=== PATIENT | female | born 1955 | race Caucasian/White ===

== ENCOUNTER 2016-08-14 09:22 | Outpatient (CLI) | payer MEDICAID ==
[2016-08-14] MEDS ORDERED: Acetaminophen 325 MG Tab PO PRN (11:41)
[2016-08-14 13:24] VITALS: BP 114/70
--- NOTE | 2016-08-14 13:57 | CT ---
EXAMINATION: CT guided right middle lobe lung biopsy HISTORY: Lung mass COMPARISON: 08/01/2016 TECHNIQUE: The procedure, risks, and benefits were discussed with the patient. Risks included life-t hreatening bleeding, infection, pneumothorax, delayed pneumothorax and pain. Written Informed consen t was obtained. The patient was placed and oblique supine position. Chronic Disease Epidemiologist imaging was obtained. An a dequate location was selected along the right lateral chest. The overlying area was sterilely preppe d and draped. 1% lidocaine was administered for local anesthesia. Using CT guidance a 16-gauge troca r after was advanced to the periphery of the tumor. Total of 2 18-gauge core biopsies were obtained. A blood patch was placed as the trocar was withdrawn. The patient tolerated the procedure well. The re is no evidence of bleeding or immediate pneumothorax. Upright chest radiograph was taken 15 minutes following the procedure demonstrated no appreciable pl eural effusion. The patient was monitored for approximately 2 hours and vitals remained stable. Ther e is no notable patent. A chest radiograph was taken 2 hours post procedure also demonstrated no mulu reciable pneumothorax. No evidence of bleeding. The patient was given instructions and told if any s hortness of breath or trouble breathing was experienced to call the radiology Department are present ed to the ER. IMPRESSION: Successful CT guided biopsy of a right lung mass.
== END 2016-08-14 12:45 | disposition home or self-care (01) ==
LOC: MW.DI 09:22
PROVIDERS: ATTEND Family Medicine
DX: R91.8 Other nonspecific abnormal finding of lung field (principal); R93.8 Abnormal findings on diagnostic imaging of other specified body structures
CPT/HCPCS: 32405; 71010; 77012; 88305; A9270

== ENCOUNTER → 2016-08-29 | Outpatient (CLI) | payer MEDICAID ==
[2016-08-29] MEDS: Gadobutrol 10 mMOL/10 ML SDV IVPUSH STA (12:25)
== END ==
LOC: MW.MRI 11:46
PROVIDERS: ATTEND Family Medicine
DX: C34.91 Malignant neoplasm of unspecified part of right bronchus or lung (principal)
CPT/HCPCS: A9585

== ENCOUNTER → 2016-09-02 | Outpatient (CLI) | payer MEDICAID ==
--- NOTE | 2016-09-04 09:35 | NM ---
EXAMINATION: PET CT scan from skullbase to proximal thighs. HISTORY: Malignant neoplasm. PROCEDURE: Patient's fasting blood glucose was 117 mg/dL. 11.12 mCi of FDG was administered. Scanni ng was performed one hour following injection. Comparison CT dated 08/01/2016. FINDINGS: NECK/CHEST: There is no abnormal uptake along the cervical chains. No abnormal mediastinal or hilar uptake. Again noted is a right lung mass measuring approximately 3.2 cm demonstrating avid FDG uptak e with a maximum SUV of 18.1. There is scarring within the left lingular region without significant FDG uptake. ABDOMEN/PELVIS: No FDG avid retroperitoneal, mesenteric or pelvic adenopathy. The rest of the activity within the a bdomen and pelvis including kidneys is within physiologic limits. No rectal or sigmoid focal intense uptake. OSSEOUS STRUCTURES: No abnormal osseous uptake identified.. IMPRESSION: 1. Solitary right middle lobe mass measuring approximately 3.3 cm demonstrating avid FDG uptake. 2. Otherwise no evidence of metastatic disease.
== END | disposition home or self-care (01) ==
LOC: MW.NM 10:02
PROVIDERS: ATTEND Family Medicine
DX: C34.91 Malignant neoplasm of unspecified part of right bronchus or lung (principal); R91.8 Other nonspecific abnormal finding of lung field
CPT/HCPCS: 78815; A9552

== ENCOUNTER 2018-08-13 23:42 | Emergency (ER) | payer MEDICAID ==
--- NOTE | 2018-08-13 23:56 | EDM.PDOC ---
ED HPI GENERAL MEDICAL PROBLEM - General Chief Complaint: Lower Extremity Injury/Pain Stated Complaint: KNEE PAIN Time Seen by Provider: 08/13/18 23:49 - History of Present Illness INITIAL COMMENTS - FREE TEXT/NARRATIVE: HISTORY AND PHYSICAL: History of present illness: Patient is 63-year-old white female history of cancer who presents with concern of right knee injury this occurred when she got up and fell she denies chest pain shortness breath dizziness or any other complaints she denies any head or neck pain or trauma or other concern. Review of systems: As per history of present illness and below otherwise all systems reviewed and negative. Past medical history: As per history of present illness and as reviewed below otherwise noncontributory. Surgical history: As per history of present illness and as reviewed below otherwise noncontributory. Social history: No reported history of drug or alcohol abuse. Family history: As per history of present illness and as reviewed below otherwise noncontributory. Physical exam: HEENT: Atraumatic, normocephalic, pupils reactive, negative scleral icterus, mucous membranes moist, throat clear, neck supple, nontender, trachea midline. Lungs: Clear to auscultation, breath sounds equal bilaterally, chest nontender. Heart: S1S2, regular, negative for clicks, rubs, or JVD. Abdomen: Soft, nondistended, nontender. Negative for masses or hepatosplenomegaly. Negative for costovertebral tenderness. Pelvis: Stable nontender. Genitourinary: Deferred. Rectal: Deferred. Extremities: Small swelling noted right knee joints grossly stable, negative for cords or calf pain. Neurovascular unremarkable. Neuro: Awake, alert, oriented. Cranial nerves II through XII unremarkable. Cerebellum unremarkable. Motor and sensory unremarkable throughout. Exam nonfocal. Diagnostics: X-ray right knee patient defers all other diagnostics Therapeutics: None Impression: #1 acute right knee injury #2 history of fall Definitive disposition and diagnosis as appropriate pending reevaluation and review of above. right knee Pain Score (Numeric/FACES): 7 - Related Data Allergies Allergy/AdvReac Type Severity Reaction Status Date / Time naproxen [From Aleve] Allergy Difficulty Verified 08/14/18 00:06 Breathing Penicillins Allergy Other Verified 08/14/18 00:06 Home Meds: Home Meds Albuterol Sulfate [Proair Respiclick] 2 puff INH ASDIRECTED PRN 10/23/18 [ History] Fluticasone/Salmeterol [Advair Hfa 230-21 Mcg Inhaler] 1 puff INH BID PRN [History] LORazepam 1 mg PO TID PRN 04/07/18 [History] Morphine Sulfate [Morphine Sulfate ER] 15 mg PO BID 04/07/18 [History] Ondansetron [Zofran] 8 mg PO TID PRN 04/07/18 [History] Pregabalin [Lyrica] 100 mg PO BID 04/07/18 [History] oxyCODONE 5 mg PO Q4H PRN 04/07/18 [History] Past Medical History HEENT History: Reports: Other (See Below) Other HEENT History: uses corrective glasses Respiratory History: Reports: COPD 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: Neurological History: Reports: Other (See Below) 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 ED EXAM, GENERAL - Physical Exam Exam: See Below (See dictation) Course - Vital Signs Last Recorded V/S: Last Vital Signs Temp 36.6 C 08/13/18 23:43 Pulse 78 08/13/18 23:43 Resp 18 08/13/18 23:43 BP 91/50 L 08/13/18 23:43 Pulse Ox 90 L 08/13/18 23:43 Departure - Departure Time of Disposition: 01:03 Disposition: Home, Self-Care 01 Condition: Good Clinical Impression: Knee injury - Discharge Information Forms: ED Department Discharge Additional Instructions: The following information is given to patients seen in the emergency department who are being discharged to home. This information is to outline your options for follow-up care. We provide all patients seen in our emergency department with a follow-up referral. The need for follow-up, as well as the timing and circumstances, are variable depending upon the specifics of your emergency department visit. If you don't have a primary care physician on staff, we will provide you with a referral. We always advise you to contact your personal physician following an emergency department visit to inform them of the circumstance of the visit and for follow-up with them and/or the need for any referrals to a consulting specialist. The emergency department will also refer you to a specialist when appropriate. This referral assures that you have the opportunity for followup care with a specialist. All of these measure are taken in an effort to provide you with optimal care, which includes your followup. Under all circumstances we always encourage you to contact your private physician who remains a resource for coordinating your care. When calling for followup care, please make the office aware that this follow-up is from your recent emergency room visit. If for any reason you are refused follow-up, please contact the [facility] emergency department at and asked to speak to the emergency department charge nurse. Specialty Care - [facility] [address], [facility] [address] [place] [address] Continue current medications follow-up primary medical doctor as needed as discussed follow-up orthopedic surgery as needed as discussed and return as needed as discussed
--- NOTE | 2018-08-14 00:33 | CR ---
INDICATION: Fell and landed on right knee. COMPARISON: None. FINDINGS/IMPRESSION: Right knee, 3 views. No acute fracture is identified. There is no malalignment. Moderate-sized joint effusion is present within the suprapatellar bursa. Scattered minimal marginal joint spurring is present and there is chondrocalcinosis of the knee. Dictated by Medardo Burton MD @ 08/14/2018 12:32:07 AM Dictated by: Medardo Burton MD @ 08/14/2018 00:33:09 (Electronically Signed)
[2018-08-14 01:13] VITALS: BP 111/68
== END 2018-08-14 01:13 | disposition home or self-care (01) ==
LOC: MW.ED 23:42
DX: S89.91XA Unspecified injury of right lower leg, initial encounter (principal); J44.9 Chronic obstructive pulmonary disease, unspecified; Z79.899 Other long term (current) drug therapy; Z88.0 Allergy status to penicillin; Z88.5 Allergy status to narcotic agent; W18.39XA Other fall on same level, initial encounter
CPT/HCPCS: 73562-26-RT; 73562-RT; 99284; 99284-25

== ENCOUNTER 2020-05-18 11:15 | Emergency (ER) | payer MEDICAID ==
[2020-05-18] MEDS ORDERED: Sodium Chloride 0.9% 10 ML Syringe FLUSH PRN (11:24)
[2020-05-18] MEDS ORDERED: Sodium Chloride 0.9% 2.5 ML Syringe FLUSH PRN (11:24)
[2020-05-18] MEDS ORDERED: Sodium Chloride 0.9% 10 ML SDV IV PRN (11:24)
--- NOTE | 2020-05-18 11:33 | EDM.PDOC ---
ED HPI GENERAL MEDICAL PROBLEM - General Stated Complaint: POSSIBLE STROKE Time Seen by Provider: 05/18/20 11:19 Source of Information: Reports: Patient History Limitations: Reports: No Limitations - History of Present Illness INITIAL COMMENTS - FREE TEXT/NARRATIVE: HISTORY AND PHYSICAL: History of present illness: Patient is a 64-year-old female who presents to the emergency room with complaints of left upper extremity weakness and swelling since 5 AM on 05/17/2020. She states she woke up and noticed a "funny sensation" to the left shoulder, arm and hand and felt like she was slightly weaker on that side. States she has bilateral lower extremity swelling (ongoing for 6-8 months), but hasn't noticed any weakness or difficulty with ambulation/gait. Decided to come today for evaluation and states "I believe I had a stroke". She does have a history of brain and lung cancer, stating it is slow-growing and they are watching it. Had a PET scan a few months ago, stated "everything looked good". She believes her memory is slightly "off" but denies being confused or having any change in vision/headache. Patient has PMH: Longstanding stage 4 non-small cell lung carcinoma (originally T2, Nx, M1c) Status post whole brain radiation therapy completing 3500cGy in September of 2016. Continues to see oncology for maintenance Pembrolizumab under the care of Dr Jones. Sees Dr Chavez for mental health needs. Review of systems: As per history of present illness and below otherwise all systems reviewed and negative. Past medical history: As per history of present illness and as reviewed below otherwise noncontributory. Surgical history: As per history of present illness and as reviewed below otherwise noncontributory. Social history: See social history for further information Family history: As per history of present illness and as reviewed below otherwise noncontributory. Physical exam: General: Well developed and well nourished. Alert and orientated x 3. Nontoxic in appearance and in no acute distress. Vital signs are stable and have been reviewed by me. Nursing notes were reviewed. HEENT: Atraumatic, normocephalic, pupils equal and reactive bilaterally, negative for conjunctival pallor or scleral icterus, mucous membranes moist, TMs normal bilaterally, throat clear, neck supple, nontender, trachea midline. No drooling or trismus noted. No meningeal signs. No hot potato voice noted. Lungs: Clear to auscultation, breath sounds equal bilaterally, chest nontender. Normal work of breathing, no accessory muscles used. Heart: S1S2, regular rate and rhythm without overt murmur Abdomen: Soft, nondistended, nontender. Negative for masses or costovertebral tenderness. Pelvis: Stable nontender. Skin: Intact, warm, dry. No lesions or rashes noted. Hematologic: No petechiae or purpra. Mucosa appropriate color and normal nail bed color and refill. Extremities: Atraumatic, moves all extremities per self without difficulty or deficits, she does have a slightly weaker left hand grasp and pronator drift with putting hands out straight in front of her/eyes closed. Negative for cords or calf pain. Neurovascular unremarkable. Neuro: Awake, alert, oriented. Cranial nerves II through XII unremarkable. Cerebellum unremarkable. Motor and sensory unremarkable throughout. Exam nonfocal. Psychiatric: Mood and affect are appropriate. Normal thought process. Answering questions appropriately. Notes: GCS: 15, NIH: 2 (left arm drift and decreased sensation) Patient states she noticed the symptoms at 5 AM yesterday, this does put her out of the window for thrombolytics. Patient is alert, oriented and able to answer questions appropriately. She has no speech difficulty or CT of the head shows involutional changes consisting of moderate atrophy and moderate white matter disease. 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 Small nonacute appearing subcortical lacunar infarcts. No visible acute findings or hemorrhages noted. Ultrasound of the left upper extremity is normal, showing all major veins are fully compressible. No soft tissue abnormalities are noted. Patient is up ambulating in the room and has taken herself to the bathroom without obtaining a urine sample. She has no difficulty with gait, ambulation and continues to be alert, oriented and answering questions appropriately. I have talked with the patient about today's findings, in addition to providing specific details for plan of care. I did recommend admission for further care and management; she declines. We discussed in great lengths the risks of being d ischarged to home, including permanent disability or even - she voices understanding and accepts those risks. She states she has an appointment tomorrow with her PCP and will return if her symptoms should worsen or new symptoms develop. Reassessment at the time of disposition demonstrates that the patient is in no acute distress. GCS: 15, NIH: 2 (left arm drift and decreased sensation) Will discharge her to home with education. She denies any further questions or concerns at this time. Diagnostics: CBC, CMP, Troponin, EKG, CXR, Head CT, INR, TSH, Left upper ext U/S Therapeutics: Nascar Racer, SL x 2 Impression: TIA Plan: 1. Today your lab work showed no acute findings but I did recommend keeping you over night for observation, which you declined. We are always happy to re-e valuate and take care of you if you should change your mind at any point. If your symptoms should return, symptoms worsen or new symptoms develop please return to the emergency room or call 911. 2. Keep your follow-up appointment that you have with your primary care provider for tomorrow. Definitive disposition and diagnosis as appropriate pending reevaluation and review of above. Duration: Day(s): - Related Data Allergies Allergy/AdvReac Type Severity Reaction Status Date / Time naproxen [From Aleve] Allergy Difficulty Verified 05/18/20 11:26 Breathing Penicillins Allergy Other Verified 05/18/20 11:26 Home Meds: Home Meds Albuterol Sulfate [Proair Respiclick] 2 puff INH ASDIRECTED PRN 04/07/18 [History] Fluticasone Propion/Salmeterol [Advair Hfa 230-21 Mcg Inhaler] 1 puff INH BID PRN 04/07/18 [History] LORazepam 1 mg PO TID PRN 04/07/18 [History] Morphine Sulfate [Morphine Sulfate ER] 15 mg PO BID 04/07/18 [History] Ondansetron [Zofran] 8 mg PO TID PRN 04/07/18 [History] Pregabalin [Lyrica] 100 mg PO BID 04/07/18 [History] oxyCODONE 5 mg PO Q4H PRN 04/07/18 [History] Past Medical History HEENT History: Reports: Other (See Below) Other HEENT History: uses corrective glasses Respiratory History: Reports: COPD 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: Neurological History: Reports: Other (See Below) 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 ED EXAM, NEURO - Physical Exam Exam: See Below (See dictation) Course - Vital Signs Last Recorded V/S: Last Vital Signs Temp 98.4 F 05/18/20 11:22 Pulse 82 05/18/20 11:22 Resp 16 05/18/20 11:22 BP 93/57 L 05/18/20 11:22 Pulse Ox 94 L 05/18/20 11:22 - Orders/Labs/Meds Orders: Active Orders 24 hr Category Date Time Status Assess Neurological Status [RC] ASDIRECTED Care 05/18/20 11:24 Active Cardiac Monitoring [RC] . DIRECTED Care 05/18/20 11:24 Active EKG Documentation Completion [RC] STAT Care 05/18/20 11:24 Active NIH Stroke Scale [RC] ASDIRECTED Care 05/18/20 11:24 Active Nursing Bedside Swallow Screen [RC] ASDIRECTED Care 05/18/20 11:24 Active Oxygen Therapy [RC] ASDIRECTED Care 05/18/20 11:24 Active CORONAVIRUS COVID-19 CHARMAINE [MOLEC] Stat Lab 05/18/20 12:22 Ordered UA RFX DENISE AND CULT IF INDIC [URIN] Stat Lab 05/18/20 12:22 Ordered Sodium Chloride 0.9% [Normal Saline] Med 05/18/20 11:24 Active 10 ml IV ASDIRECTED PRN Sodium Chloride 0.9% [Saline Flush] Med 05/18/20 11:24 Active 10 ml FLUSH ASDIRECTED PRN Sodium Chloride 0.9% [Saline Flush] Med 05/18/20 11:24 Active 2.5 ml FLUSH ASDIRECTED PRN Peripheral IV Insertion Adult [OM.PC] Stat Oth 05/18/20 11:24 Ordered Peripheral IV Insertion Adult [OM.PC] Stat Oth 05/18/20 11:24 Ordered Medication Orders Sodium Chloride (Saline Flush) 10 ml FLUSH ASDIRECTED PRN PRN Reason: Keep Vein Open Sodium Chloride (Saline Flush) 2.5 ml FLUSH ASDIRECTED PRN PRN Reason: Keep Vein Open Sodium Chloride (Normal Saline) 10 ml IV ASDIRECTED PRN PRN Reason: IV Use Labs: Laboratory Tests 05/18/20 05/18/20 05/18/20 Range/Units 11:39 11:39 11:39 WBC 7.91 (4.0-11.0) K/uL RBC 4.41 (4.30-5.90) M/uL Hgb 14.4 (12.0-16.0) g/dL Hct 43.0 (36.0-46.0) % MCV 97.5 (80.0-98.0) fL MCH 32.7 H (27.0-32.0) pg MCHC 33.5 (31.0-37.0) g/dL RDW Std Deviation 52.1 (28.0-62.0) fl RDW Coeff of Wili 15 (11.0-15.0) % Plt Count 292 (150-400) K/uL MPV 9.10 (7.40-12.00) fL Neut % (Auto) 75.1 (48.0-80.0) % Lymph % (Auto) 12.6 L (16.0-40.0) % Fleming % (Auto) 11.4 (0.0-15.0) % Eos % (Auto) 0.6 (0.0-7.0) % Baso % (Auto) 0.3 (0.0-1.5) % Neut # (Auto) 5.9 H (1.4-5.7) K/uL Lymph # (Auto) 1.0 (0.6-2.4) K/uL Fleming # (Auto) 0.9 H (0.0-0.8) K/uL Eos # (Auto) 0.1 (0.0-0.7) K/uL Baso # (Auto) 0.0 (0.0-0.1) K/uL Nucleated RBC % 0.0 /100WBC Nucleated RBCs # 0 K/uL INR 1.05 APTT 25.7 (18.6-31.3) SEC Sodium 134 L (136-145) mmol/L Potassium 3.4 L (3.5-5.1) mmol/L Chloride 98 (98-107) mmol/L Carbon Dioxide 34.0 H (21.0-32.0) mmol/L BUN 2 L (7.0-18.0) mg/dL Creatinine 0.7 (0.6-1.0) mg/dL Est Cr Clr Drug Dosing 82.22 mL/min Estimated GFR (MDRD) > 60.0 ml/min Glucose 105 (74-106) mg/dL Calcium 8.1 L (8.5-10.1) mg/dL Total Bilirubin 0.4 (0.2-1.0) mg/dL AST 21 (15-37) IU/L ALT 19 (14-63) IU/L Alkaline Phosphatase 169 H (46-116) U/L Troponin I < 0.050 (0.000-0.056) ng/mL Total Protein 5.9 L (6.4-8.2) g/dL Albumin 2.0 L (3.4-5.0) g/dL Globulin 3.9 (2.6-4.0) g/dL Albumin/Globulin Ratio 0.5 L (0.9-1.6) TSH 3rd Generation 0.48 (0.36-3.74) uIU/mL Meds: Medications Generic Name Dose Route Start Last Admin Trade Name Freq PRN Reason Stop Dose Admin Sodium Chloride 10 ml 05/18/20 11:24 Saline Flush FLUSH ASDIRECTED PRN Keep Vein Open Sodium Chloride 2.5 ml 05/18/20 11:24 Saline Flush FLUSH ASDIRECTED PRN Keep Vein Open Sodium Chloride 10 ml 05/18/20 11:24 Normal Saline IV ASDIRECTED PRN IV Use Departure - Departure Time of Disposition: 12:57 Disposition: Home, Self-Care 01 Clinical Impression: TIA (transient ischemic attack) - Discharge Information Instructions: Transient Ischemic Attack, [id number] Additional Instructions: The following information is given to patients seen in the emergency department who are being discharged to home. This information is to outline your options for follow-up care. We provide all patients seen in our emergency department with a follow-up referral. The need for follow-up, as well as the timing and circumstances, are variable depending upon the specifics of your emergency department visit. If you don't have a primary care physician on staff, we will provide you with a referral. We always advise you to contact your personal physician following an emergency department visit to inform them of the circumstance of the visit and for follow-up with them and/or the need for any referrals to a consulting specialist. The emergency department will also refer you to a specialist when appropriate. This referral assures that you have the opportunity for follow-up care with a specialist. All of these measure are taken in an effort to provide you with optimal care, which includes your follow-up. Under all circumstances we always encourage you to contact your private physician who remains a resource for coordinating your care. When calling for follow-up care, please make the office aware that this follow-up is from your recent emergency room visit. If for any reason you are refused follow-up, please contact the [facility] Emergency Department at and asked to speak to the emergency department charge nurse. [facility] Primary Care [address] [place] [id number] [facility] [address] [place] [id number] Thank you for choosing the [facility] emergency department in [place] for your medical needs today. It was a pleasure caring for you. Today you were seen in the emergency department for evaluation of stroke. 1. Today your lab work showed no acute findings but I did recommend keeping you over night for observation, which you declined. We are always happy to re- evaluate and take care of you if you should change your mind at any point. If your symptoms should return, symptoms worsen or new symptoms develop please return to the emergency room or call 911. 2. Keep your follow-up appointment that you have with your primary care provider for tomorrow. Sepsis Event Note (ED) - Focused Exam Vital Signs: Vital Signs Temp Pulse Resp BP Pulse Ox 05/18/20 11:22 98.4 F 82 16 93/57 L 94 L - My Orders Last 24 Hours: My Active Orders 05/18/20 11:24 Assess Neurological Status [RC] ASDIRECTED Cardiac Monitoring [RC] . DIRECTED EKG Documentation Completion [RC] STAT NIH Stroke Scale [RC] ASDIRECTED Nursing Bedside Swallow Screen [RC] ASDIRECTED Oxygen Therapy [RC] ASDIRECTED Sodium Chloride 0.9% [Normal Saline] 10 ml IV ASDIRECTED PRN Sodium Chloride 0.9% [Saline Flush] 10 ml FLUSH ASDIRECTED PRN Sodium Chloride 0.9% [Saline Flush] 2.5 ml FLUSH ASDIRECTED PRN Peripheral IV Insertion Adult [OM.PC] Stat Peripheral IV Insertion Adult [OM.PC] Stat 05/18/20 12:22 CORONAVIRUS COVID-19 CHARMAINE [MOLEC] Stat UA RFX DENISE AND CULT IF INDIC [URIN] Stat - Assessment/Plan Last 24 Hours: My Active Orders 05/18/20 11:24 Assess Neurological Status [RC] ASDIRECTED Cardiac Monitoring [RC] . DIRECTED EKG Documentation Completion [RC] STAT NIH Stroke Scale [RC] ASDIRECTED Nursing Bedside Swallow Screen [RC] ASDIRECTED Oxygen Therapy [RC] ASDIRECTED Sodium Chloride 0.9% [Normal Saline] 10 ml IV ASDIRECTED PRN Sodium Chloride 0.9% [Saline Flush] 10 ml FLUSH ASDIRECTED PRN Sodium Chloride 0.9% [Saline Flush] 2.5 ml FLUSH ASDIRECTED PRN Peripheral IV Insertion Adult [OM.PC] Stat Peripheral IV Insertion Adult [OM.PC] Stat 05/18/20 12:22 CORONAVIRUS COVID-19 CHARMAINE [MOLEC] Stat UA RFX DENISE AND CULT IF INDIC [URIN] Stat
--- NOTE | 2020-05-18 11:41 | PCM.SN.2 ---
- Free Text/Narrative Note: EKG TIme 1136am NSR Rate 77 No DECLAN
--- NOTE | 2020-05-18 12:15 | CT ---
INDICATION: Stroke COMPARISON: None TECHNIQUE: CT examination of the head was performed as axial sections without intravenous contrast. Images were obtained from the vertex of the skull through the skull base. Please note that all CT scans at this facility use dose modulation, iterative reconstruction, and/or weight-based dosing when appropriate to reduce radiation dose to as low as reasonably achievable. FINDINGS: The brain shows no sign of mass lesion, mass effect, hemorrhage, or edema. There are involutional changes. There is moderate cortical atrophy and there is moderate white matter disease. There is no hydrocephalus. The visualized portions of the orbits are normal in appearance. The osseous structures are normal in appearance with no sign of abnormality in the skull base or calvarium. There is encephalomalacia of the right frontal lobe. There are some coarse calcifications in this area. These are probably dystrophic calcifications as are sometimes noted in remote insults including remote infarcts. There are also nonacute subcortical infarcts. IMPRESSION: 1. Involutional changes consisting of moderate atrophy and moderate white matter disease. 2. 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 Small nonacute appearing subcortical lacunar infarcts. 3. No visible acute finding or hemorrhage. Please note that all CT scans at this facility use dose modulation, iterative reconstruction, and/or weight-based dosing when appropriate to reduce radiation dose to as low as reasonably achievable. Dictated by Darion Fair MD @ May 18 2020 12:10PM Signed by Dr. Darion Fair @ May 18 2020 12:13PM
[2020-05-18 12:26] LABS: BLOOD UREA NITROGEN,BUN 2 mg/dL (7.0-18.0); CHLORIDE,CL 98 mmol/L (98-107); GLUCOSE RANDOM 105 mg/dL (74-106); POTASSIUM,K 3.4 mmol/L (3.5-5.1); SODIUM,NA 134 mmol/L (136-145)
--- NOTE | 2020-05-18 12:30 | US ---
INDICATION: Swelling TECHNIQUE: Ultrasound venous duplex upper left extremity. Compression venous exam was performed using ordoñez scale, color Doppler, and spectral Doppler imaging. COMPARISON: None FINDINGS: The left internal jugular, subclavian, and axillary veins are patent with normal waveforms. The brachial, basilic, radial cephalic veins are fully compressible. No soft tissue abnormalities seen. IMPRESSION: Normal ultrasound of the left upper extremity veins. Dictated by Naren Underwood MD @ 05/18/2020 12:28:28 PM Dictated by: Naren Underwood MD @ 05/18/2020 12:28:31 (Electronically Signed)
[2020-05-18 13:44] VITALS: BP 92/58; PULSE 72
== END 2020-05-18 13:41 | disposition home or self-care (01) ==
LOC: MW.ED 11:15
DX: G45.9 Transient cerebral ischemic attack, unspecified (principal); J44.9 Chronic obstructive pulmonary disease, unspecified; Z88.8 Allergy status to other drugs, medicaments and biological substances; Z88.0 Allergy status to penicillin
CPT/HCPCS: 36415; 70450; 70450-26; 80053; 84443; 84484; 85025; 85610; 85730; 93005; 93010; 93971-26-LT; 93971-LT; 99283; 99284-25

== ENCOUNTER 2020-06-19 11:45 | Inpatient (IN) | payer MEDICAID ==
--- NOTE | 2020-06-19 12:01 | EDM.PDOC ---
ED HPI GENERAL MEDICAL PROBLEM - General Chief Complaint: Cardiovascular Problem Stated Complaint: AMBULANCE Time Seen by Provider: 06/19/20 11:53 Source of Information: Reports: Patient History Limitations: Reports: No Limitations - History of Present Illness INITIAL COMMENTS - FREE TEXT/NARRATIVE: This is a 4-year-old female who presents today for weakness and lower extremity swelling. Patient states that her legs have been swollen for the past few months but today she is having difficulty walking due to her legs being so heavy. Patient denies any shortness of breath fever chills or cough. Patient is still receiving immunotherapy. generalized Pain Score (Numeric/FACES): 5 - Related Data Allergies Allergy/AdvReac Type Severity Reaction Status Date / Time naproxen [From Aleve] Allergy Difficulty Verified 06/19/20 11:52 Breathing Penicillins Allergy Other Verified 06/19/20 11:52 Home Meds: Home Meds Albuterol Sulfate [Proair Respiclick] 2 puff INH ASDIRECTED PRN 04/07/18 [History] Fluticasone Propion/Salmeterol [Advair Hfa 230-21 Mcg Inhaler] 1 puff INH BID PRN 04/07/18 [History] LORazepam 1 mg PO TID PRN 04/07/18 [History] Morphine Sulfate [Morphine Sulfate ER] 15 mg PO BID 04/07/18 [History] Ondansetron [Zofran] 8 mg PO TID PRN 04/07/18 [History] Pregabalin [Lyrica] 100 mg PO TID 04/07/18 [History] oxyCODONE 5 mg PO Q4H PRN 04/07/18 [History] Benztropine [Cogentin] 1 mg PO BID 06/19/20 [History] Clindamycin/Niacinamide [Clindamycin 1%-Niacinamide 4%] 1 applic TOP BID 06/19/20 [History] Lubiprostone [Amitiza] 24 mcg PO BID 06/19/20 [History] Midodrine 5 mg PO TID 06/19/20 [History] Non-Formulary Medication [NF Drug] 1 puff INH DAILY 06/19/20 [History] Pantoprazole [ProTONIX] 40 mg PO DAILY 06/19/20 [History] Pembrolizumab [Keytruda] 200 mg IV ASDIRECTED 06/19/20 [History] fluorouraciL [Fluorouracil] applic TOP BID 06/19/20 [History] risperiDONE [Risperdal] mg PO BID 06/19/20 [History] Past Medical History HEENT History: Reports: Other (See Below) Other HEENT History: uses corrective glasses Respiratory History: Reports: COPD 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: Neurological History: Reports: Other (See Below) 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 Psychiatric History: Reports: Anxiety, Depression Oncologic (Cancer) History: Reports: Brain, Lung Other Oncologic History: radiation therapy - Past Surgical History Respiratory Surgical History: Reports: Lung Biopsies GI Surgical History: Reports: Cholecystectomy Oncologic Surgical History: Reports: None Social & Family History - Family History Family Medical History: No Pertinent Family History - Caffeine Use Caffeine Use: Reports: Coffee ED ROS GENERAL - Review of Systems Review Of Systems: See Below Constitutional: Reports: No Symptoms HEENT: Reports: No Symptoms Respiratory: Reports: No Symptoms Cardiovascular: Reports: Edema Endocrine: Reports: No Symptoms GI/Abdominal: Reports: No Symptoms : Reports: No Symptoms Musculoskeletal: Reports: No Symptoms Skin: Reports: No Symptoms Neurological: Reports: No Symptoms Psychiatric: Reports: No Symptoms Hematologic/Lymphatic: Reports: No Symptoms Immunologic: Reports: No Symptoms ED EXAM, GENERAL - Physical Exam Exam: See Below Exam Limited By: No Limitations General Appearance: Alert, WD/WN Respiratory/Chest: No Respiratory Distress, Lungs Clear, Normal Breath Sounds Cardiovascular: Normal Peripheral Pulses, Regular Rate, Rhythm GI/Abdominal: Normal Bowel Sounds, Soft, Non-Tender (Female) Exam: Normal External Exam Extremities: Normal Range of Motion Neurological: Alert, Oriented #1 Interpretation EKG Date: 06/19/20 Time: 11:45 Rhythm: NSR Rate (Beats/Min): 98 ST-T: Normal Course - Vital Signs Last Recorded V/S: Last Vital Signs Temp 97.1 F 06/19/20 11:52 Pulse 109 H 06/19/20 14:56 Resp 20 06/19/20 14:56 BP 86/47 L 06/19/20 14:56 Pulse Ox 92 L 06/19/20 14:56 - Orders/Labs/Meds Orders: Active Orders 24 hr Category Date Time Status Patient Status [ADT] Routine ADT 06/19/20 15:00 Ordered Magnesium Sulfate [Magnesium Sulfate 50%] Med 06/19/20 14:59 Stat 2 gm IV NOW STA Medication Orders Magnesium Sulfate (Magnesium Sulfate 50%) 2 gm IV NOW STA Stop: 06/19/20 15:00 Labs: Laboratory Tests 06/19/20 06/19/20 06/19/20 Range/Units 11:50 11:50 11:50 WBC 8.45 (4.0-11.0) K/uL RBC 4.80 (4.30-5.90) M/uL Hgb 15.4 (12.0-16.0) g/dL Hct 45.3 (36.0-46.0) % MCV 94.4 (80.0-98.0) fL MCH 32.1 H (27.0-32.0) pg MCHC 34.0 (31.0-37.0) g/dL RDW Std Deviation 52.2 (28.0-62.0) fl RDW Coeff of Wili 15 (11.0-15.0) % Plt Count 319 (150-400) K/uL MPV 9.70 (7.40-12.00) fL Neut % (Auto) 77.2 (48.0-80.0) % Lymph % (Auto) 9.8 L (16.0-40.0) % [place] % (Auto) 12.3 (0.0-15.0) % Eos % (Auto) 0.6 (0.0-7.0) % Baso % (Auto) 0.1 (0.0-1.5) % Neut # (Auto) 6.5 H (1.4-5.7) K/uL Lymph # (Auto) 0.8 (0.6-2.4) K/uL [place] # (Auto) 1.0 H (0.0-0.8) K/uL Eos # (Auto) 0.1 (0.0-0.7) K/uL Baso # (Auto) 0.0 (0.0-0.1) K/uL Nucleated RBC % 0.0 /100WBC Nucleated RBCs # 0 K/uL Sodium 134 L (136-145) mmol/L Potassium 3.7 (3.5-5.1) mmol/L Chloride 97 L (98-107) mmol/L Carbon Dioxide 35.5 H (21.0-32.0) mmol/L BUN 6 L (7.0-18.0) mg/dL Creatinine 0.7 (0.6-1.0) mg/dL Est Cr Clr Drug Dosing 83.54 mL/min Estimated GFR (MDRD) > 60.0 ml/min Glucose 125 H (74-106) mg/dL Calcium 8.1 L (8.5-10.1) mg/dL Phosphorus 3.1 (2.6-4.7) mg/dL Magnesium 1.4 L (1.8-2.4) mg/dL Total Bilirubin 0.4 (0.2-1.0) mg/dL AST 30 (15-37) IU/L ALT 25 (14-63) IU/L Alkaline Phosphatase 184 H (46-116) U/L Troponin I < 0.050 (0.000-0.056) ng/mL B-Natriuretic Peptide 48 (<100) PG/ML Total Protein 5.1 L (6.4-8.2) g/dL Albumin 1.5 L (3.4-5.0) g/dL Globulin 3.6 (2.6-4.0) g/dL Albumin/Globulin Ratio 0.4 L (0.9-1.6) Lipase 26 L (73-393) U/L Urine Color Urine Appearance Urine pH (5.0-8.0) Ur Specific [place] (1.001-1.035) Urine Protein (NEGATIVE) mg/dL Urine Glucose (UA) (NEGATIVE) mg/dL Urine Ketones (NEGATIVE) mg/dL Urine Occult Blood (NEGATIVE) Urine Nitrite (NEGATIVE) Urine Bilirubin (NEGATIVE) Urine Urobilinogen (<2.0) EU/dL Ur Leukocyte Esterase (NEGATIVE) Influenza Type A RNA (NEGATIVE) Influenza Type B RNA (NEGATIVE) SARS-CoV-2 RNA (CHARMAINE) (NEGATIVE) 06/19/20 06/19/20 Range/Units 12:50 14:27 WBC (4.0-11.0) K/uL RBC (4.30-5.90) M/uL Hgb (12.0-16.0) g/dL Hct (36.0-46.0) % MCV (80.0-98.0) fL MCH (27.0-32.0) pg MCHC (31.0-37.0) g/dL RDW Std Deviation (28.0-62.0) fl RDW Coeff of Wili (11.0-15.0) % Plt Count (150-400) K/uL MPV (7.40-12.00) fL Neut % (Auto) (48.0-80.0) % Lymph % (Auto) (16.0-40.0) % [place] % (Auto) (0.0-15.0) % Eos % (Auto) (0.0-7.0) % Baso % (Auto) (0.0-1.5) % Neut # (Auto) (1.4-5.7) K/uL Lymph # (Auto) (0.6-2.4) K/uL [place] # (Auto) (0.0-0.8) K/uL Eos # (Auto) (0.0-0.7) K/uL Baso # (Auto) (0.0-0.1) K/uL Nucleated RBC % /100WBC Nucleated RBCs # K/uL Sodium (136-145) mmol/L Potassium (3.5-5.1) mmol/L Chloride (98-107) mmol/L Carbon Dioxide (21.0-32.0) mmol/L BUN (7.0-18.0) mg/dL Creatinine (0.6-1.0) mg/dL Est Cr Clr Drug Dosing mL/min Estimated GFR (MDRD) ml/min Glucose (74-106) mg/dL Calcium (8.5-10.1) mg/dL Phosphorus (2.6-4.7) mg/dL Magnesium (1.8-2.4) mg/dL Total Bilirubin (0.2-1.0) mg/dL AST (15-37) IU/L ALT (14-63) IU/L Alkaline Phosphatase (46-116) U/L Troponin I (0.000-0.056) ng/mL B-Natriuretic Peptide (<100) PG/ML Total Protein (6.4-8.2) g/dL Albumin (3.4-5.0) g/dL Globulin (2.6-4.0) g/dL Albumin/Globulin Ratio (0.9-1.6) Lipase (73-393) U/L Urine Color YELLOW Urine Appearance CLEAR Urine pH 6.5 (5.0-8.0) Ur Specific [place] 1.015 (1.001-1.035) Urine Protein NEGATIVE (NEGATIVE) mg/dL Urine Glucose (UA) NEGATIVE (NEGATIVE) mg/dL Urine Ketones NEGATIVE (NEGATIVE) mg/dL Urine Occult Blood NEGATIVE (NEGATIVE) Urine Nitrite NEGATIVE (NEGATIVE) Urine Bilirubin NEGATIVE (NEGATIVE) Urine Urobilinogen 0.2 (<2.0) EU/dL Ur Leukocyte Esterase NEGATIVE (NEGATIVE) Influenza Type A RNA NEGATIVE (NEGATIVE) Influenza Type B RNA NEGATIVE (NEGATIVE) SARS-CoV-2 RNA (CHARMAINE) NEGATIVE (NEGATIVE) Meds: Medications Generic Name Dose Route Start Last Admin Trade Name Freq PRN Reason Stop Dose Admin Magnesium Sulfate 2 gm 06/19/20 14:59 Magnesium Sulfate 50% IV 06/19/20 15:00 NOW STA Discontinued Medications Generic Name Dose Route Start Last Admin Trade Name Freq PRN Reason Stop Dose Admin Calcium Gluconate 1 gm 06/19/20 14:59 Calcium Gluconate IVPUSH 06/19/20 15:00 ONETIME ONE Sodium Chloride 1,000 mls @ 999 mls/hr 06/19/20 13:35 06/19/20 13:50 Normal Saline IV 06/19/20 14:35 999 mls/hr .BOLUS ONE Administration - Re-Assessments/Exams Free Text/Narrative Re-Assessment/Exam: 06/19/20 15:01 Pt remains hypotensive. Heart rate does increase to the low teens to 120s but seems stable in the 90s no signs of any arrhythmia on EKG. Unclear cause patient hypotension no signs of infection. Spoke to hospitalist will admit to hospital for observation. Departure - Departure Time of Disposition: 15:01 Disposition: Admitted As Inpatient 68 Condition: Good Clinical Impression: Hypotension - Discharge Information *PRESCRIPTION DRUG MONITORING PROGRAM REVIEWED*: Not Applicable *COPY OF PRESCRIPTION DRUG MONITORING REPORT IN PATIENT BARRY: Not Applicable Forms: ED Department Discharge Sepsis Event Note (ED) - Evaluation Sepsis Screening Result: Possible Sepsis Risk - Focused Exam Vital Signs: Vital Signs Temp Pulse Resp BP Pulse Ox 06/19/20 14:56 109 H 20 86/47 L 92 L 06/19/20 11:52 97.1 F 98 18 95/59 L 92 L - My Orders Last 24 Hours: My Active Orders 06/19/20 14:59 Magnesium Sulfate [Magnesium Sulfate 50%] 2 gm IV NOW STA 06/19/20 15:00 Patient Status [ADT] Routine - Assessment/Plan Admission H&P: Please use this note as an admission H&P Last 24 Hours: My Active Orders 06/19/20 14:59 Magnesium Sulfate [Magnesium Sulfate 50%] 2 gm IV NOW STA 06/19/20 15:00 Patient Status [ADT] Routine Assessment:: Patient is a 64-year-old female who presents today for lower extremity swelling. Patient has no respiratory complaints. Pressure is low per review and has vital signs seem to be patient's baseline patient was given fluids by EMS. Will obtain x-ray labs and reassess.
--- NOTE | 2020-06-19 12:24 | CR ---
INDICATION: Lower extremity edema COMPARISON: PA chest dated 08/14/2016 TECHNIQUE: PA chest performed at 12:08 p.m. FINDINGS: The lungs are clear. There is no evidence of pneumothorax. The heart, mediastinum and pulmonary vessels are of normal size. There is no evidence of pleural fluid. IMPRESSION: Negative chest. Dictated by Anupam Simms MD @ Jun 19 2020 12:20PM Signed by Dr. Anupam Simms @ Jun 19 2020 12:23PM
[2020-06-19 12:36] LABS: BLOOD UREA NITROGEN,BUN 6 mg/dL (7.0-18.0); CARBON DIOXIDE,CO2 35.5 mmol/L (21.0-32.0); CHLORIDE,CL 97 mmol/L (98-107); GLUCOSE RANDOM 125 mg/dL (74-106); LIPASE 26 U/L (73-393); POTASSIUM,K 3.7 mmol/L (3.5-5.1); SODIUM,NA 134 mmol/L (136-145)
[2020-06-19] MEDS ORDERED: Sodium Chloride 0.9% 1,000 ML IV ONE (13:35)
[2020-06-19 14:14] LABS: CORONAVIRUS COVID-19 NAA NEGATIVE (NEGATIVE); INFLUENZA A NAA NEGATIVE (NEGATIVE); INFLUENZA B NAA NEGATIVE (NEGATIVE)
[2020-06-19] MEDS ORDERED: Magnesium Sulfate (4.06 MEQ/ML) 5 GM/10 ML SDV IV STA (14:59)
[2020-06-19] MEDS ORDERED: Calcium Gluconate 10% 1 GM/10 ML SDV IVPUSH ONE (14:59)
[2020-06-19] MEDS ORDERED: Magnesium Sulfate/Water 2 GM/50 ML BAG IV ONE (15:15)
[2020-06-19] MEDS ORDERED: Ondansetron 4 MG Tab.DIS PO PRN (17:26)
[2020-06-19] MEDS ORDERED: Heparin Sodium 5,000 Units/ML Vial SUBCUT SCH (17:30)
[2020-06-19] MEDS ORDERED: Non-Formulary Medication 1 Each (Fluticasone Propion/Salmeterol [Advair Hfa 230-21 Mcg Inh INH PRN (17:43)
[2020-06-19] MEDS ORDERED: LORazepam 1 MG Tab PO PRN (17:43)
[2020-06-19] MEDS ORDERED: Ibuprofen 200 MG Tab PO PRN (17:50)
[2020-06-19] MEDS: Heparin Sodium 5,000 Units/ML Vial SUBCUT SCH (18:08)
--- NOTE | 2020-06-19 18:43 | PCM.HP.2 ---
H&P History of Present Illness - General Date of Service: 06/19/20 Admit Problem/Dx: Admission Diagnosis/Problem Admission Diagnosis/Problem Hypotension Source of Information: Patient - History of Present Illness Initial Comments - Free Text/Narative: Patient is a 64-year-old female with complaints of weakness, fatigue, and worsening lower extremity swelling. Swelling is so significant that she is having difficulty ambulating as her legs feel extremely heavy, therefore continues to become more sedentary and chair bound. Denies any shortness of breath, orthopnea, dyspnea, palpitations, dizziness, syncope. Denies any alleviating or aggravating factors. Denies any fever, chills, cough, sick c ontacts or travel. ER course: Chest x-ray CBC, CMP, EKG, UA, influenza a and B, Covid which were al l unremarkable generalized Pain Score (Numeric/FACES): 5 - Related Data Allergies/Adverse Reactions: Allergies Allergy/AdvReac Type Severity Reaction Status Date / Time naproxen [From Aleve] Allergy Difficulty Verified 06/19/20 11:52 Breathing Penicillins Allergy Other Verified 06/19/20 11:52 Home Medications: Home Meds Albuterol Sulfate [Proair Respiclick] 2 puff INH ASDIRECTED PRN 04/07/18 [History] Fluticasone Propion/Salmeterol [Advair Hfa 230-21 Mcg Inhaler] 1 puff INH BID PRN 04/07/18 [History] LORazepam 1 mg PO TID PRN 04/07/18 [History] Morphine Sulfate [Morphine Sulfate ER] 15 mg PO BID 04/07/18 [History] Ondansetron [Zofran] 8 mg PO TID PRN 04/07/18 [History] Pregabalin [Lyrica] 100 mg PO TID 04/07/18 [History] oxyCODONE 5 mg PO Q4H PRN 04/07/18 [History] Benztropine [Cogentin] 1 mg PO BID 06/19/20 [History] Clindamycin/Niacinamide [Clindamycin 1%-Niacinamide 4%] 1 applic TOP BID 06/19/20 [History] Lubiprostone [Amitiza] 24 mcg PO BID 06/19/20 [History] Midodrine 5 mg PO TID 06/19/20 [History] Non-Formulary Medication [NF Drug] 1 puff INH DAILY 06/19/20 [History] Pantoprazole [ProTONIX] 40 mg PO DAILY 06/19/20 [History] Pembrolizumab [Keytruda] 200 mg IV ASDIRECTED 06/19/20 [History] fluorouraciL [Fluorouracil] applic TOP BID 06/19/20 [History] risperiDONE [Risperdal] mg PO BID 06/19/20 [History] Past Medical History HEENT History: Reports: Other (See Below) Other HEENT History: uses corrective glasses Respiratory History: Reports: COPD [employer] History: Reports: Neurological History: Reports: Other (See Below) 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 Adrenal cancer - Infectious Disease History Infectious Disease History: Reports: Chicken Pox, Measles, Mumps - Past Surgical History Respiratory Surgical History: Reports: Lung Biopsies GI Surgical History: Reports: Cholecystectomy Oncologic Surgical History: Reports: None Social & Family History - Family History Family Medical History: No Pertinent Family History - Tobacco Use Tobacco Use Status *Q: Current Every Day Tobacco User Years of Tobacco use: 50 Packs/Tins Daily: 1 - Caffeine Use Caffeine Use: Reports: Coffee, Energy Drinks, Soda, Tea - Recreational Drug Use Recreational Drug Use: Yes Recreational Drug Type: Reports: Marijuana/Hashish Recreational Drug Use Frequency: Rarely H&P Review of Systems - Review of Systems: Review Of Systems: See Below General: Reports: Weakness, Fatigue HEENT: Reports: No Symptoms Pulmonary: Reports: No Symptoms Cardiovascular: Reports: No Symptoms Gastrointestinal: Reports: No Symptoms Genitourinary: Reports: No Symptoms Musculoskeletal: Reports: Other Skin: Reports: Other Psychiatric: Reports: Other (History of schizophrenia poor historian) Neurological: Reports: Pre-Existing Deficit Hematologic/Lymphatic: Reports: No Symptoms Immunologic: Reports: No Symptoms Exam - Exam Exam: See Below - Vital Signs Vital Signs: Last Vital Signs Temp 96.3 F L 06/19/20 17:00 Pulse 83 06/19/20 17:00 Resp 18 06/19/20 17:00 BP 90/56 L 06/19/20 17:00 Pulse Ox 96 06/19/20 17:00 Weight: 140 lb - Exam Quality Assessment: DVT Prophylaxis General: Alert, Oriented HEENT: Conjunctiva Clear, EOMI, PERRLA Neck: Supple, Trachea Midline Lungs: Clear to Auscultation, Normal Respiratory Effort Cardiovascular: Regular Rate, Regular Rhythm GI/Abdominal Exam: Normal Bowel Sounds, Soft, No Organomegaly, No Distention, No Mass Extremities: Normal Range of Motion, Non-Tender, Normal Capillary Refill, Pedal Edema Peripheral Pulses: 2+: Radial (L), Radial (R), Dorsalis Pedis (L), Dorsalis Pedis (R) Skin: Warm, Dry, Decubitis Neurological: Cranial Nerves Intact (Stage II sacral ulcer) Neuro Extensive - Mental Status: Alert, Oriented x3, Normal Mood/Affect, Normal Cognition Neuro Extensive - Motor, Sensory, Reflexes: CN II-XII Intact Psychiatric: Alert, Normal Affect, Normal Mood - Patient Data Lab Results Last 24 hrs: Laboratory Results - last 24 hr 06/19/20 06/19/20 06/19/20 Range/Units 11:50 11:50 11:50 WBC 8.45 (4.0-11.0) K/uL RBC 4.80 (4.30-5.90) M/uL Hgb 15.4 (12.0-16.0) g/dL Hct 45.3 (36.0-46.0) % MCV 94.4 (80.0-98.0) fL MCH 32.1 H (27.0-32.0) pg MCHC 34.0 (31.0-37.0) g/dL RDW Std Deviation 52.2 (28.0-62.0) fl RDW Coeff of Wili 15 (11.0-15.0) % Plt Count 319 (150-400) K/uL MPV 9.70 (7.40-12.00) fL Neut % (Auto) 77.2 (48.0-80.0) % Lymph % (Auto) 9.8 L (16.0-40.0) % [place] % (Auto) 12.3 (0.0-15.0) % Eos % (Auto) 0.6 (0.0-7.0) % Baso % (Auto) 0.1 (0.0-1.5) % Neut # (Auto) 6.5 H (1.4-5.7) K/uL Lymph # (Auto) 0.8 (0.6-2.4) K/uL [place] # (Auto) 1.0 H (0.0-0.8) K/uL Eos # (Auto) 0.1 (0.0-0.7) K/uL Baso # (Auto) 0.0 (0.0-0.1) K/uL Nucleated RBC % 0.0 /100WBC Nucleated RBCs # 0 K/uL Sodium 134 L (136-145) mmol/L Potassium 3.7 (3.5-5.1) mmol/L Chloride 97 L (98-107) mmol/L Carbon Dioxide 35.5 H (21.0-32.0) mmol/L BUN 6 L (7.0-18.0) mg/dL Creatinine 0.7 (0.6-1.0) mg/dL Est Cr Clr Drug Dosing 83.54 mL/min Estimated GFR (MDRD) > 60.0 ml/min Glucose 125 H (74-106) mg/dL Calcium 8.1 L (8.5-10.1) mg/dL Phosphorus 3.1 (2.6-4.7) mg/dL Magnesium 1.4 L (1.8-2.4) mg/dL Total Bilirubin 0.4 (0.2-1.0) mg/dL AST 30 (15-37) IU/L ALT 25 (14-63) IU/L Alkaline Phosphatase 184 H (46-116) U/L Troponin I < 0.050 (0.000-0.056) ng/mL B-Natriuretic Peptide 48 (<100) PG/ML Total Protein 5.1 L (6.4-8.2) g/dL Albumin 1.5 L (3.4-5.0) g/dL Globulin 3.6 (2.6-4.0) g/dL Albumin/Globulin Ratio 0.4 L (0.9-1.6) Lipase 26 L (73-393) U/L Urine Color Urine Appearance Urine pH (5.0-8.0) Ur Specific [employer] (1.001-1.035) Urine Protein (NEGATIVE) mg/dL Urine Glucose (UA) (NEGATIVE) mg/dL Urine Ketones (NEGATIVE) mg/dL Urine Occult Blood (NEGATIVE) Urine Nitrite (NEGATIVE) Urine Bilirubin (NEGATIVE) Urine Urobilinogen (<2.0) EU/dL Ur Leukocyte Esterase (NEGATIVE) Influenza Type A RNA (NEGATIVE) Influenza Type B RNA (NEGATIVE) SARS-CoV-2 RNA (CHARMAINE) (NEGATIVE) 06/19/20 06/19/20 Range/Units 12:50 14:27 WBC (4.0-11.0) K/uL RBC (4.30-5.90) M/uL Hgb (12.0-16.0) g/dL Hct (36.0-46.0) % MCV (80.0-98.0) fL MCH (27.0-32.0) pg MCHC (31.0-37.0) g/dL RDW Std Deviation (28.0-62.0) fl RDW Coeff of Wili (11.0-15.0) % Plt Count (150-400) K/uL MPV (7.40-12.00) fL Neut % (Auto) (48.0-80.0) % Lymph % (Auto) (16.0-40.0) % [place] % (Auto) (0.0-15.0) % Eos % (Auto) (0.0-7.0) % Baso % (Auto) (0.0-1.5) % Neut # (Auto) (1.4-5.7) K/uL Lymph # (Auto) (0.6-2.4) K/uL [place] # (Auto) (0.0-0.8) K/uL Eos # (Auto) (0.0-0.7) K/uL Baso # (Auto) (0.0-0.1) K/uL Nucleated RBC % /100WBC Nucleated RBCs # K/uL Sodium (136-145) mmol/L Potassium (3.5-5.1) mmol/L Chloride (98-107) mmol/L Carbon Dioxide (21.0-32.0) mmol/L BUN (7.0-18.0) mg/dL Creatinine (0.6-1.0) mg/dL Est Cr Clr Drug Dosing mL/min Estimated GFR (MDRD) ml/min Glucose (74-106) mg/dL Calcium (8.5-10.1) mg/dL Phosphorus (2.6-4.7) mg/dL Magnesium (1.8-2.4) mg/dL Total Bilirubin (0.2-1.0) mg/dL AST (15-37) IU/L ALT (14-63) IU/L Alkaline Phosphatase (46-116) U/L Troponin I (0.000-0.056) ng/mL B-Natriuretic Peptide (<100) PG/ML Total Protein (6.4-8.2) g/dL Albumin (3.4-5.0) g/dL Globulin (2.6-4.0) g/dL Albumin/Globulin Ratio (0.9-1.6) Lipase (73-393) U/L Urine Color YELLOW Urine Appearance CLEAR Urine pH 6.5 (5.0-8.0) Ur Specific [employer] 1.015 (1.001-1.035) Urine Protein NEGATIVE (NEGATIVE) mg/dL Urine Glucose (UA) NEGATIVE (NEGATIVE) mg/dL Urine Ketones NEGATIVE (NEGATIVE) mg/dL Urine Occult Blood NEGATIVE (NEGATIVE) Urine Nitrite NEGATIVE (NEGATIVE) Urine Bilirubin NEGATIVE (NEGATIVE) Urine Urobilinogen 0.2 (<2.0) EU/dL Ur Leukocyte Esterase NEGATIVE (NEGATIVE) Influenza Type A RNA NEGATIVE (NEGATIVE) Influenza Type B RNA NEGATIVE (NEGATIVE) SARS-CoV-2 RNA (CHARMAINE) NEGATIVE (NEGATIVE) Result Diagrams: 06/19/20 11:50 06/19/20 11:50 Sepsis Event Note - Evaluation Sepsis Screening Result: Possible Sepsis Risk - Focused Exam Vital Signs: Vital Signs Temp Pulse Resp BP Pulse Ox 06/19/20 17:00 96.3 F L 83 18 90/56 L 96 06/19/20 16:37 87 83/51 L 97 06/19/20 16:36 89 65/38 L 95 06/19/20 16:32 88 74/37 L 89 L 06/19/20 16:25 95 66/39 L 92 L 06/19/20 14:56 109 H 20 86/47 L 92 L 06/19/20 11:52 97.1 F 98 18 95/59 L 92 L Problem List Initiated/Reviewed/Updated: Yes Orders Last 24hrs: Active Orders 24 hr Category Date Time Status Patient Status [ADT] Routine ADT 06/19/20 15:00 Active Oxygen Therapy [RC] PRN Care 06/19/20 17:26 Active Up With Assistance [RC] ASDIRECTED Care 06/19/20 17:26 Active VTE/DVT Education [RC] DAILY Care 06/19/20 17:26 Active Vital Signs [RC] Q4H Care 06/19/20 17:26 Active PT Evaluation and Treatment [CONS] Routine Cons 06/19/20 17:26 Active Regular Diet [DIET] Diet 06/19/20 Dinner Active Abdomen Ltd [US] Routine Exams 06/19/20 17:37 Ordered Venous Doppler Lwr Ext Bi [US] Routine Exams 06/19/20 17:35 Ordered ACTH, PLASMA [REF] Routine Lab 06/20/20 08:00 Ordered CBC WITH AUTO DIFF [HEME] AM Lab 06/20/20 05:11 Ordered CBC WITH AUTO DIFF [HEME] AM Lab 06/21/20 05:11 Ordered CBC WITH AUTO DIFF [HEME] AM Lab 06/22/20 05:11 Ordered CBC WITH AUTO DIFF [HEME] AM Lab 06/23/20 05:11 Ordered CBC WITH AUTO DIFF [HEME] AM Lab 06/24/20 05:11 Ordered COMPREHENSIVE METABOLIC PN,CMP [CHEM] AM Lab 06/20/20 05:11 Ordered COMPREHENSIVE METABOLIC PN,CMP [CHEM] AM Lab 06/21/20 05:11 Ordered COMPREHENSIVE METABOLIC PN,CMP [CHEM] AM Lab 06/22/20 05:11 Ordered COMPREHENSIVE METABOLIC PN,CMP [CHEM] AM Lab 06/23/20 05:11 Ordered COMPREHENSIVE METABOLIC PN,CMP [CHEM] AM Lab 06/24/20 05:11 Ordered INR,PT,PROTHROMBIN TIME [COAG] Routine Lab 06/19/20 18:20 Received MISC TEST Routine Lab 06/20/20 08:00 Ordered TSH [CHEM] Routine Lab 06/19/20 18:20 Received Albuterol Sulfate [Proair Respiclick] Med 06/19/20 17:43 Ordered 2 puff INH ASDIRECTED PRN Benztropine [Cogentin] Med 06/19/20 21:00 Pending 1 mg PO BID Fluticasone Propion/Salmeterol [Advair Hfa 230-21 Mcg Med 06/19/20 17:43 Ordered Inhaler] 1 puff INH BID PRN Heparin Sodium Med 06/19/20 18:00 Active 5,000 units SUBCUT Q12H LORazepam [Ativan] Med 06/19/20 17:43 Active 1 mg PO TID PRN Lubiprostone Med 06/19/20 21:00 Ordered 24 mcg PO BID Midodrine Med 06/19/20 22:00 Active 5 mg PO TID Nicotine [Habitrol] Med 06/20/20 09:00 Active 21 mg TRDERM DAILY Ondansetron [Zofran ODT] Med 06/19/20 17:26 Active 4 mg PO Q4H PRN Pantoprazole [ProTONIX] Med 06/20/20 09:00 Active 40 mg PO DAILY Pembrolizumab [Keytruda] Med 06/19/20 17:45 Pending 200 mg IV ASDIRECTED Pregabalin Med 06/19/20 22:00 Ordered 100 mg PO TID Remove Patch Med 06/21/20 09:00 Active 1 ea TRDERM Q24H oxyCODONE Med 06/19/20 17:43 Active 5 mg PO Q4H PRN risperiDONE [RisperiDAL] Med 06/19/20 21:00 Unverified DOSE UNIT RTE FREQ Resuscitation Status Routine Resus Stat 06/19/20 17:26 Ordered Medication Orders Benztropine Mesylate (Cogentin) 1 mg PO BID [facility] Heparin Sodium (Porcine) (Heparin Sodium) 5,000 units SUBCUT Q12H [facility] Last Admin: 06/19/20 18:08 Dose: 5,000 units Documented by: WIL Lorazepam (Ativan) 1 mg PO TID PRN PRN Reason: Anxiety Midodrine (Midodrine) 5 mg PO TID [facility] Miscellaneous Information (Remove Patch) 1 ea TRDERM Q24H [facility] Nicotine (Habitrol) 21 mg TRDERM DAILY [facility] Non-Formulary Medication (Albuterol Sulfate [Proair Respiclick]) 2 puff INH ASDIRECTED PRN PRN Reason: Wheezing Non-Formulary Medication (Fluticasone Propion/Salmeterol [Advair Hfa 230-21 Mcg Inhaler]) 1 puff INH BID PRN PRN Reason: Dyspnea Non-Formulary Medication (Lubiprostone) 24 mcg PO BID [facility] Non-Formulary Medication (Pregabalin) 100 mg PO TID [facility] Ondansetron HCl (Zofran Odt) 4 mg PO Q4H PRN PRN Reason: nausea, able to take PO Oxycodone HCl (Oxycodone) 5 mg PO Q4H PRN PRN Reason: Pain (moderate 4-6) Pantoprazole Sodium (Protonix) 40 mg PO DAILY [facility] Pembrolizumab (Keytruda) 200 mg IV ASDIRECTED [facility] Assessment/Plan Comment:: 64-year-old female with a significant past medical history of brain cancer, lung cancer, possible adrenal gland tumor admitted with increased weakness, fatigue and lower leg swelling. 1. Weakness secondary to possible underlying adrenal insufficiency: Patient on Keydura possible side effect adrenal insufficiency, will get morning cortisol with plasma ACTH, TSH 2. Bilateral lower extremity swellin+ pitting edema, some swelling in left upper extremity, assess for cirrhosis, low albumin 1.5, will get bilateral venous Doppler to rule out any DVT, limited abdominal ultrasound to reevaluate liver, no signs ascites on physical examination. Previous echo indicated normal EF completed April 2020. 3. Hypotension: On home dose of midodrine, avoid any Lasix, will further evaluate for liver cirrhosis Dispo [facility] to [facility] facility as patient is unable to perform ADLs, will obtain oncology records tomorrow, DVT prophylaxis Heparin 5000 subcu every 12 hours daily, GI prophylaxis pantoprazole 40 IV daily, regular diet, activity with assistance.
--- NOTE | 2020-06-19 20:26 | US ---
INDICATION: COMPARISON: none TECHNIQUE: A compression venous ultrasound exam was performed of both lower extremities using 2D ordoñez scale imaging, color Doppler and spectral Doppler analysis. FINDINGS: Sonographic imaging of the right lower extremity demonstrates normal compressibility and color Doppler venous blood flow within the common femoral, deep femoral, and proximal greater saphenous veins. Within the thigh the femoral vein is patent and compressible. At a lower level the popliteal, peroneal and posterior tibial veins show normal compressibility and color Doppler venous blood flow. There is dependent edema with fluid stranding within the subcutaneous tissues of the calf. Imaging of the left lower extremity demonstrates normal compressibility and color Doppler venous blood flow within the common femoral, deep femoral, and proximal greater saphenous veins. Within the thigh the femoral vein is patent and compressible. At a lower level the popliteal, peroneal and posterior tibial veins show normal compressibility and color Doppler venous blood flow. Similar to the right leg there is dependent edema within the subcutaneous tissues of the lower leg. IMPRESSION: No evidence of deep vein thrombosis within either lower extremity. Dependent edema identified bilaterally within the subcutaneous tissues of both calves. Dictated by Anupam Simms MD @ Jun 19 2020 8:23PM Signed by Dr. Anupam Simms @ Jun 19 2020 8:25PM
--- NOTE | 2020-06-19 20:32 | US ---
CLINICAL HISTORY: Possible anasarca. Evaluate liver. COMPARISON: none TECHNIQUE: 2D ordoñez scale imaging and color Doppler analysis was performed of the abdomen. FINDINGS: Sonographic imaging demonstrates diffuse increased echogenicity of hepatic parenchyma. There is no evidence of a focal mass lesion. Changes would suggest generalized hepatic steatosis. There is no evidence of ascites. The spleen is of normal size. The pancreas appears normal. Atherosclerotic changes are evident within the abdominal aorta. The gallbladder has been resected. The common bile duct measures 7.1 mm in size within the rob hepatis. The kidneys appear symmetric. The right kidney measures 11.5 cm in length. There is no evidence of a renal calculus or hydronephrosis. IMPRESSION: Echogenic liver consistent with generalized hepatic steatosis. No evidence of ascites. Dictated by Anupam Simms MD @ Jun 19 2020 8:25PM Signed by Dr. Anupam Simms @ Jun 19 2020 8:31PM
[2020-06-19] MEDS ORDERED: Benztropine 1 MG Tab PO SCH (21:00)
[2020-06-19] MEDS: Midodrine 5 MG Tab PO SCH (21:43)
[2020-06-19] MEDS: risperiDONE 1 MG Tab PO SCH (21:44)
[2020-06-19] MEDS: oxyCODONE 5 MG Tab PO PRN (21:44)
[2020-06-19] MEDS: Pregabalin 50 MG Cap PO SCH (23:00)
[2020-06-20 05:21] LABS: BLOOD UREA NITROGEN,BUN 5 mg/dL (7.0-18.0); GLUCOSE RANDOM 90 mg/dL (74-106)
[2020-06-20] MEDS: Heparin Sodium 5,000 Units/ML Vial SUBCUT SCH ×2 (05:42→18:21)
[2020-06-20] MEDS: Pregabalin 50 MG Cap PO SCH ×3 (05:42→22:42)
[2020-06-20 05:43] LABS: CARBON DIOXIDE,CO2 34.7 mmol/L (21.0-32.0); CHLORIDE,CL 101 mmol/L (98-107); POTASSIUM,K 3.2 mmol/L (3.5-5.1); SODIUM,NA 139 mmol/L (136-145)
[2020-06-20] MEDS: oxyCODONE 5 MG Tab PO PRN ×2 (05:43→12:00)
[2020-06-20] MEDS: Midodrine 5 MG Tab PO SCH ×3 (05:43→22:43)
[2020-06-20] MEDS ORDERED: Albuterol 8 GM Inhaler INH PRN (08:30)
[2020-06-20] MEDS ORDERED: Lubiprostone [Amitiza] 24 MCG PO SCH (09:00)
[2020-06-20] MEDS ORDERED: FLU VAC QV 2020(18YR UP)RCM/PF 180 MCG/0.5 ML SYRINGE IM ONE (09:00)
[2020-06-20] MEDS: Pantoprazole 40 MG Tab.CR PO SCH (09:24)
[2020-06-20] MEDS: risperiDONE 1 MG Tab PO SCH ×2 (09:24→20:52)
[2020-06-20] MEDS: Nicotine 21 MG/24 Hr Patch TRDERM SCH (09:25)
[2020-06-20] MEDS: Lubiprostone [Amitiza] 24 MCG PO SCH ×2 (10:07→20:53)
[2020-06-20] MEDS ORDERED: Magnesium Sulfate/Water 4 GM in Premix Bag 1 BAG IV ONE (10:33)
[2020-06-20] MEDS ORDERED: Albumin 5% 250 ML IV SCH (10:45)
[2020-06-20] MEDS ORDERED: Albumin 5% 500 ML IV ONE (11:00)
[2020-06-20] MEDS ORDERED: Potassium Chloride 10 MEQ Tab.ER PO ONE (11:21)
--- NOTE | 2020-06-20 11:52 | PCM.PN ---
- General Info Date of Service: 06/20/20 Subjective Update: Admitted for increased weakness fatigue, hypotension and significant leg swelling causing difficulty ambulating. Patient was worked up for adrenal insufficiency versus hepatic cirrhosis versus worsening of her stage IV non- small cell cancer. She denies any shortness of breath, fever, chills, cough, dyspnea. Continues to have leg discomfort due to significant swelling 3+. Functional Status: Reports: Tolerating Diet, Ambulating (With assistance) - Review of Systems General: Reports: No Symptoms HEENT: Reports: No Symptoms Pulmonary: Reports: No Symptoms Cardiovascular: Reports: No Symptoms Gastrointestinal: Reports: No Symptoms Genitourinary: Reports: No Symptoms Musculoskeletal: Reports: Leg Pain, Joint Swelling (Reports lower extremity edema) Skin: Reports: Other (3+ pitting edema bilaterally) Neurological: Reports: No Symptoms Psychiatric: Reports: No Symptoms - Patient Data Vitals - Most Recent: Last Vital Signs Temp 97.3 F 06/20/20 04:00 Pulse 91 06/20/20 04:27 Resp 17 06/20/20 04:27 BP 90/50 L 06/20/20 04:27 Pulse Ox 94 L 06/20/20 04:27 Weight - Most Recent: 146 lb 11.2 oz I&O - Last 24 Hours: Intake & Output 06/19/20 06/20/20 06/20/20 22:59 06:59 14:59 Intake Total 750 Output Total 900 1000 Balance -900 -250 Lab Results Last 24 Hours: Laboratory Results - last 24 hr 06/19/20 06/19/20 06/19/20 Range/Units 11:50 11:50 11:50 WBC 8.45 (4.0-11.0) K/uL RBC 4.80 (4.30-5.90) M/uL Hgb 15.4 (12.0-16.0) g/dL Hct 45.3 (36.0-46.0) % MCV 94.4 (80.0-98.0) fL MCH 32.1 H (27.0-32.0) pg MCHC 34.0 (31.0-37.0) g/dL RDW Std Deviation 52.2 (28.0-62.0) fl RDW Coeff of Wili 15 (11.0-15.0) % Plt Count 319 (150-400) K/uL MPV 9.70 (7.40-12.00) fL Neut % (Auto) 77.2 (48.0-80.0) % Lymph % (Auto) 9.8 L (16.0-40.0) % [place] % (Auto) 12.3 (0.0-15.0) % Eos % (Auto) 0.6 (0.0-7.0) % Baso % (Auto) 0.1 (0.0-1.5) % Neut # (Auto) 6.5 H (1.4-5.7) K/uL Lymph # (Auto) 0.8 (0.6-2.4) K/uL [place] # (Auto) 1.0 H (0.0-0.8) K/uL Eos # (Auto) 0.1 (0.0-0.7) K/uL Baso # (Auto) 0.0 (0.0-0.1) K/uL Nucleated RBC % 0.0 /100WBC Nucleated RBCs # 0 K/uL INR Sodium 134 L (136-145) mmol/L Potassium 3.7 (3.5-5.1) mmol/L Chloride 97 L (98-107) mmol/L Carbon Dioxide 35.5 H (21.0-32.0) mmol/L BUN 6 L (7.0-18.0) mg/dL Creatinine 0.7 (0.6-1.0) mg/dL Est Cr Clr Drug Dosing 83.54 mL/min Estimated GFR (MDRD) > 60.0 ml/min Glucose 125 H (74-106) mg/dL Calcium 8.1 L (8.5-10.1) mg/dL Phosphorus 3.1 (2.6-4.7) mg/dL Magnesium 1.4 L (1.8-2.4) mg/dL Total Bilirubin 0.4 (0.2-1.0) mg/dL AST 30 (15-37) IU/L ALT 25 (14-63) IU/L Alkaline Phosphatase 184 H (46-116) U/L Troponin I < 0.050 (0.000-0.056) ng/mL B-Natriuretic Peptide 48 (<100) PG/ML Total Protein 5.1 L (6.4-8.2) g/dL Albumin 1.5 L (3.4-5.0) g/dL Globulin 3.6 (2.6-4.0) g/dL Albumin/Globulin Ratio 0.4 L (0.9-1.6) Lipase 26 L (73-393) U/L TSH 3rd Generation (0.36-3.74) uIU/mL Urine Color Urine Appearance Urine pH (5.0-8.0) Ur Specific [place] (1.001-1.035) Urine Protein (NEGATIVE) mg/dL Urine Glucose (UA) (NEGATIVE) mg/dL Urine Ketones (NEGATIVE) mg/dL Urine Occult Blood (NEGATIVE) Urine Nitrite (NEGATIVE) Urine Bilirubin (NEGATIVE) Urine Urobilinogen (<2.0) EU/dL Ur Leukocyte Esterase (NEGATIVE) Influenza Type A RNA (NEGATIVE) Influenza Type B RNA (NEGATIVE) SARS-CoV-2 RNA (CHARMAINE) (NEGATIVE) 06/19/20 06/19/20 06/19/20 Range/Units 12:50 14:27 18:20 WBC (4.0-11.0) K/uL RBC (4.30-5.90) M/uL Hgb (12.0-16.0) g/dL Hct (36.0-46.0) % MCV (80.0-98.0) fL MCH (27.0-32.0) pg MCHC (31.0-37.0) g/dL RDW Std Deviation (28.0-62.0) fl RDW Coeff of Wili (11.0-15.0) % Plt Count (150-400) K/uL MPV (7.40-12.00) fL Neut % (Auto) (48.0-80.0) % Lymph % (Auto) (16.0-40.0) % [place] % (Auto) (0.0-15.0) % Eos % (Auto) (0.0-7.0) % Baso % (Auto) (0.0-1.5) % Neut # (Auto) (1.4-5.7) K/uL Lymph # (Auto) (0.6-2.4) K/uL [place] # (Auto) (0.0-0.8) K/uL Eos # (Auto) (0.0-0.7) K/uL Baso # (Auto) (0.0-0.1) K/uL Nucleated RBC % /100WBC Nucleated RBCs # K/uL INR Sodium (136-145) mmol/L Potassium (3.5-5.1) mmol/L Chloride (98-107) mmol/L Carbon Dioxide (21.0-32.0) mmol/L BUN (7.0-18.0) mg/dL Creatinine (0.6-1.0) mg/dL Est Cr Clr Drug Dosing mL/min Estimated GFR (MDRD) ml/min Glucose (74-106) mg/dL Calcium (8.5-10.1) mg/dL Phosphorus (2.6-4.7) mg/dL Magnesium (1.8-2.4) mg/dL Total Bilirubin (0.2-1.0) mg/dL AST (15-37) IU/L ALT (14-63) IU/L Alkaline Phosphatase (46-116) U/L Troponin I (0.000-0.056) ng/mL B-Natriuretic Peptide (<100) PG/ML Total Protein (6.4-8.2) g/dL Albumin (3.4-5.0) g/dL Globulin (2.6-4.0) g/dL Albumin/Globulin Ratio (0.9-1.6) Lipase (73-393) U/L TSH 3rd Generation 0.53 (0.36-3.74) uIU/mL Urine Color YELLOW Urine Appearance CLEAR Urine pH 6.5 (5.0-8.0) Ur Specific [place] 1.015 (1.001-1.035) Urine Protein NEGATIVE (NEGATIVE) mg/dL Urine Glucose (UA) NEGATIVE (NEGATIVE) mg/dL Urine Ketones NEGATIVE (NEGATIVE) mg/dL Urine Occult Blood NEGATIVE (NEGATIVE) Urine Nitrite NEGATIVE (NEGATIVE) Urine Bilirubin NEGATIVE (NEGATIVE) Urine Urobilinogen 0.2 (<2.0) EU/dL Ur Leukocyte Esterase NEGATIVE (NEGATIVE) Influenza Type A RNA NEGATIVE (NEGATIVE) Influenza Type B RNA NEGATIVE (NEGATIVE) SARS-CoV-2 RNA (CHARMAINE) NEGATIVE (NEGATIVE) 06/19/20 06/20/20 06/20/20 Range/Units 18:20 04:38 04:38 WBC 6.67 (4.0-11.0) K/uL RBC 4.02 L (4.30-5.90) M/uL Hgb 12.7 (12.0-16.0) g/dL Hct 37.6 (36.0-46.0) % MCV 93.5 (80.0-98.0) fL MCH 31.6 (27.0-32.0) pg MCHC 33.8 (31.0-37.0) g/dL RDW Std Deviation 51.6 (28.0-62.0) fl RDW Coeff of Wili 15 (11.0-15.0) % Plt Count 304 (150-400) K/uL MPV 9.60 (7.40-12.00) fL Neut % (Auto) 73.2 (48.0-80.0) % Lymph % (Auto) 13.2 L (16.0-40.0) % [place] % (Auto) 11.8 (0.0-15.0) % Eos % (Auto) 1.5 (0.0-7.0) % Baso % (Auto) 0.3 (0.0-1.5) % Neut # (Auto) 4.9 (1.4-5.7) K/uL Lymph # (Auto) 0.9 (0.6-2.4) K/uL [place] # (Auto) 0.8 (0.0-0.8) K/uL Eos # (Auto) 0.1 (0.0-0.7) K/uL Baso # (Auto) 0.0 (0.0-0.1) K/uL Nucleated RBC % 0.0 /100WBC Nucleated RBCs # 0 K/uL INR 1.25 Sodium 139 (136-145) mmol/L Potassium 3.2 L (3.5-5.1) mmol/L Chloride 101 (98-107) mmol/L Carbon Dioxide 34.7 H (21.0-32.0) mmol/L BUN 5 L (7.0-18.0) mg/dL Creatinine 0.6 (0.6-1.0) mg/dL Est Cr Clr Drug Dosing 98.07 mL/min Estimated GFR (MDRD) > 60.0 ml/min Glucose 90 (74-106) mg/dL Calcium 7.8 L (8.5-10.1) mg/dL Phosphorus (2.6-4.7) mg/dL Magnesium (1.8-2.4) mg/dL Total Bilirubin 0.4 (0.2-1.0) mg/dL AST 25 (15-37) IU/L ALT 20 (14-63) IU/L Alkaline Phosphatase 140 H (46-116) U/L Troponin I (0.000-0.056) ng/mL B-Natriuretic Peptide (<100) PG/ML Total Protein 3.9 L (6.4-8.2) g/dL Albumin 1.1 L (3.4-5.0) g/dL Globulin 2.8 (2.6-4.0) g/dL Albumin/Globulin Ratio 0.4 L (0.9-1.6) Lipase (73-393) U/L TSH 3rd Generation (0.36-3.74) uIU/mL Urine Color Urine Appearance Urine pH (5.0-8.0) Ur Specific [place] (1.001-1.035) Urine Protein (NEGATIVE) mg/dL Urine Glucose (UA) (NEGATIVE) mg/dL Urine Ketones (NEGATIVE) mg/dL Urine Occult Blood (NEGATIVE) Urine Nitrite (NEGATIVE) Urine Bilirubin (NEGATIVE) Urine Urobilinogen (<2.0) EU/dL Ur Leukocyte Esterase (NEGATIVE) Influenza Type A RNA (NEGATIVE) Influenza Type B RNA (NEGATIVE) SARS-CoV-2 RNA (CHARMAINE) (NEGATIVE) 06/20/20 Range/Units 04:38 WBC (4.0-11.0) K/uL RBC (4.30-5.90) M/uL Hgb (12.0-16.0) g/dL Hct (36.0-46.0) % MCV (80.0-98.0) fL MCH (27.0-32.0) pg MCHC (31.0-37.0) g/dL RDW Std Deviation (28.0-62.0) fl RDW Coeff of Wili (11.0-15.0) % Plt Count (150-400) K/uL MPV (7.40-12.00) fL Neut % (Auto) (48.0-80.0) % Lymph % (Auto) (16.0-40.0) % [place] % (Auto) (0.0-15.0) % Eos % (Auto) (0.0-7.0) % Baso % (Auto) (0.0-1.5) % Neut # (Auto) (1.4-5.7) K/uL Lymph # (Auto) (0.6-2.4) K/uL [place] # (Auto) (0.0-0.8) K/uL Eos # (Auto) (0.0-0.7) K/uL Baso # (Auto) (0.0-0.1) K/uL Nucleated RBC % /100WBC Nucleated RBCs # K/uL INR Sodium (136-145) mmol/L Potassium (3.5-5.1) mmol/L Chloride (98-107) mmol/L Carbon Dioxide (21.0-32.0) mmol/L BUN (7.0-18.0) mg/dL Creatinine (0.6-1.0) mg/dL Est Cr Clr Drug Dosing mL/min Estimated GFR (MDRD) ml/min Glucose (74-106) mg/dL Calcium (8.5-10.1) mg/dL Phosphorus (2.6-4.7) mg/dL Magnesium 1.5 L (1.8-2.4) mg/dL Total Bilirubin (0.2-1.0) mg/dL AST (15-37) IU/L ALT (14-63) IU/L Alkaline Phosphatase (46-116) U/L Troponin I (0.000-0.056) ng/mL B-Natriuretic Peptide (<100) PG/ML Total Protein (6.4-8.2) g/dL Albumin (3.4-5.0) g/dL Globulin (2.6-4.0) g/dL Albumin/Globulin Ratio (0.9-1.6) Lipase (73-393) U/L TSH 3rd Generation (0.36-3.74) uIU/mL Urine Color Urine Appearance Urine pH (5.0-8.0) Ur Specific [place] (1.001-1.035) Urine Protein (NEGATIVE) mg/dL Urine Glucose (UA) (NEGATIVE) mg/dL Urine Ketones (NEGATIVE) mg/dL Urine Occult Blood (NEGATIVE) Urine Nitrite (NEGATIVE) Urine Bilirubin (NEGATIVE) Urine Urobilinogen (<2.0) EU/dL Ur Leukocyte Esterase (NEGATIVE) Influenza Type A RNA (NEGATIVE) Influenza Type B RNA (NEGATIVE) SARS-CoV-2 RNA (CHARMAINE) (NEGATIVE) Med Orders - Current: Current Medications Albuterol (Ventolin Hfa) 0 gm INH Q4H PRN PRN Reason: WHEEZING Heparin Sodium (Porcine) (Heparin Sodium) 5,000 units SUBCUT Q12H [facility] Last Admin: 06/20/20 05:42 Dose: 5,000 units Documented by: Magnesium Sulfate 4 gm/ Premix 100 mls @ 50 mls/hr IV ONETIME ONE Stop: 06/20/20 12:32 Albumin Human (Buminate 5%) 500 mls @ 250 mls/hr IV 1100 ONE Stop: 06/20/20 12:59 Influenza Virus Vaccine (Fluad Quad Syringe) 60 mcg IM .ONCE ONE Stop: 06/21/20 08:46 Lorazepam (Ativan) 1 mg PO TID PRN PRN Reason: Anxiety Midodrine (Midodrine) 5 mg PO TID [facility] Last Admin: 06/20/20 05:43 Dose: 5 mg Documented by: Miscellaneous Information (Remove Patch) 1 ea TRDERM Q24H [facility] [place] Nicotine (Habitrol) 21 mg TRDERM DAILY [facility] [place] Last Admin: 06/20/20 09:25 Dose: 21 mg Documented by: Ondansetron HCl (Zofran Odt) 4 mg PO Q4H PRN PRN Reason: nausea, able to take PO Oxycodone HCl (Oxycodone) 5 mg PO Q4H PRN PRN Reason: Pain (moderate 4-6) Last Admin: 06/20/20 05:43 Dose: 5 mg Documented by: Pantoprazole Sodium (Protonix) 40 mg PO DAILY [facility] Last Admin: 06/20/20 09:24 Dose: 40 mg Documented by: Lubiprostone [ (Amitiza] 24 Mcg) 1 each PO BID [facility] Last Admin: 06/20/20 10:07 Dose: 1 each Documented by: Pregabalin (Lyrica) 100 mg PO TID [facility] [place] Last Admin: 06/20/20 05:42 Dose: 100 mg Documented by: Risperidone (Risperidal) 1 mg PO BID [facility] [place] Last Admin: 06/20/20 09:24 Dose: 1 mg Documented by: Discontinued Medications Calcium Gluconate (Calcium Gluconate) 1 gm IVPUSH ONETIME ONE Stop: 06/19/20 15:00 Last Admin: 06/19/20 15:42 Dose: 1 gm Documented by: Heparin Sodium (Porcine) (Heparin Sodium) 5,000 units SUBCUT Q8H [facility] [place] Last Admin: 06/19/20 20:37 Dose: Not Given Documented by: Sodium Chloride (Normal Saline) 1,000 mls @ 999 mls/hr IV .BOLUS ONE Stop: 06/19/20 14:35 Last Admin: 06/19/20 13:50 Dose: 999 mls/hr Documented by: Magnesium Sulfate (Magnesium Sulfate In Water Premix) 2 gm in 50 mls @ 50 mls/hr IV ONETIME ONE Stop: 06/19/20 16:14 Last Admin: 06/19/20 16:03 Dose: 50 mls/hr Documented by: Ibuprofen (Motrin) 200 mg PO Q4H PRN PRN Reason: Pain (mild 1-3) Influenza Virus Vaccine (Pharmacy To Dose - Influenza Vaccine) 1 each IM ONETIME ONE Stop: 06/20/20 09:01 Lubiprostone 24 Mcg 24 each PO BID [facility] Lubiprostone [ (Amitiza] 24 Mcg) 0 each PO BID [facility] [place] Last Admin: 06/20/20 10:18 Dose: Not Given Documented by: Potassium Chloride (Klor-Con 10) 60 meq PO ONETIME ONE Stop: 06/20/20 11:22 - Exam Quality Assessment: DVT Prophylaxis General: Alert, Oriented, Cooperative, No Acute Distress HEENT: Pupils Equal, Pupils Reactive, EOMI, Mucous Membr. Moist/[place] Neck: Supple, No JVD Lungs: Clear to Auscultation, Normal Respiratory Effort Cardiovascular: Regular Rate, Regular Rhythm GI/Abdominal Exam: Normal Bowel Sounds, Soft, Non-Tender, No Distention, No Mass Extremities: Normal Range of Motion, Normal Capillary Refill, Joint Swelling. No: Aparna's Sign, Increased Warmth, Redness Peripheral Pulses: 2+: Radial (L), Radial (R), Dorsalis Pedis (L), Dorsalis Pedis (R) Skin: Warm, Dry Neurological: No New Focal Deficit Psy/Mental Status: Alert, Normal Affect, Normal Mood Sepsis Event Note - Evaluation Sepsis Screening Result: No Definite Risk - Focused Exam Vital Signs: Vital Signs Temp Pulse Resp BP Pulse Ox 06/20/20 04:27 91 17 90/50 L 94 L 06/20/20 04:00 97.3 F 95 18 73/51 L 96 06/20/20 01:06 98.7 F 92 16 85/61 L 95 - Problem List Review Problem List Initiated/Reviewed/Updated: Yes - My Orders Last 24 Hours: My Active Orders 06/19/20 Dinner Regular Diet [DIET] 06/19/20 17:26 Oxygen Therapy [RC] PRN Up With Assistance [RC] ASDIRECTED VTE/DVT Education [RC] DAILY Vital Signs [RC] Q4H PT Evaluation and Treatment [CONS] Routine Ondansetron [Zofran ODT] 4 mg PO Q4H PRN Resuscitation Status Routine 06/19/20 17:43 LORazepam [Ativan] 1 mg PO TID PRN oxyCODONE 5 mg PO Q4H PRN 06/19/20 18:00 Heparin Sodium 5,000 units SUBCUT Q12H 06/19/20 21:00 risperiDONE [RisperiDAL] 1 mg PO BID 06/19/20 22:00 Midodrine 5 mg PO TID Pregabalin [Lyrica] 100 mg PO TID 06/20/20 08:20 ACTH, PLASMA [REF] Routine CORTISOL [REF] Routine 06/20/20 08:30 Albuterol [Ventolin HFA] 0 gm INH Q4H PRN 06/20/20 09:00 Nicotine [Habitrol] 21 mg TRDERM DAILY Pantoprazole [ProTONIX] 40 mg PO DAILY 06/20/20 10:00 Patient's Own Medication [Ptom] 1 each PO BID 06/20/20 15:00 POTASSIUM,K [CHEM] Routine 06/21/20 05:11 CBC WITH AUTO DIFF [HEME] AM COMPREHENSIVE METABOLIC PN,CMP [CHEM] AM 06/22/20 05:11 CBC WITH AUTO DIFF [HEME] AM COMPREHENSIVE METABOLIC PN,CMP [CHEM] AM 06/23/20 05:11 CBC WITH AUTO DIFF [HEME] AM COMPREHENSIVE METABOLIC PN,CMP [CHEM] AM 06/24/20 05:11 CBC WITH AUTO DIFF [HEME] AM COMPREHENSIVE METABOLIC PN,CMP [CHEM] AM - Plan Plan:: 64-year-old female with a significant past medical history of stage IV non-small cell lung cancer with metastases followed by chemo and radiation. Patient was admitted with increased weakness, fatigue and significant lower extremity swelling impairing her ambulation. 1. Weakness secondary to possible underlying adrenal insufficiency: Patient on Keydura possible side effect adrenal insufficiency, collected morning cortisol with plasma ACTH, for which the results are still pending. TSH was within normal limits. Reached out to her oncology team consisting of and Dr. Marrero to discuss whether this is worsening of her underlying condition or possible side effect to her medication regimen. Also considered severe malnutriti 2. Bilateral lower extremity swelling: Continue to be swollen with 3+ pitting edema, no DVTs were found, plan is to replete albumin with hopes of symptomatic relief and encouraged ambulation with assistance as well as elevating legs above heart as much as possible. May consider Lasix however concern is for further reducing patient's blood pressure. Will also provide patient with compression stockings. 3. Hypotension: On home dose of midodrine, was evaluated for liver cirrhosis but did not appear on abdominal ultrasound. Abdominal ultrasound indicated hepatic steatosis with no ascites. 4. Hypokalemia: Replete 60 mEq p.o. to avoid giving additional fluids and recheck at 1500 5. Tobacco abuse: Provided nicotine patch 21 Dispo possibly to [facility] facility as patient is unable to perform ADLs, will obtain oncology records tomorrow, DVT prophylaxis Heparin 5000 subcu every 12 hours daily, GI prophylaxis pantoprazole 40 IV daily, regular diet, activity with assistance.
[2020-06-21] MEDS: Midodrine 5 MG Tab PO SCH ×3 (05:10→21:19)
[2020-06-21] MEDS: Pregabalin 50 MG Cap PO SCH ×3 (05:10→21:19)
[2020-06-21] MEDS: Heparin Sodium 5,000 Units/ML Vial SUBCUT SCH ×2 (05:10→18:23)
[2020-06-21] MEDS: oxyCODONE 5 MG Tab PO PRN ×3 (05:11→21:19)
[2020-06-21 06:01] LABS: BLOOD UREA NITROGEN,BUN 5 mg/dL (7.0-18.0); CARBON DIOXIDE,CO2 35.9 mmol/L (21.0-32.0); CHLORIDE,CL 104 mmol/L (98-107); GLUCOSE RANDOM 87 mg/dL (74-106); POTASSIUM,K 3.8 mmol/L (3.5-5.1); SODIUM,NA 141 mmol/L (136-145)
[2020-06-21] MEDS: risperiDONE 1 MG Tab PO SCH ×2 (08:29→21:19)
[2020-06-21] MEDS: Pantoprazole 40 MG Tab.CR PO SCH (08:29)
[2020-06-21] MEDS: Nicotine 21 MG/24 Hr Patch TRDERM SCH (08:30)
[2020-06-21] MEDS: Lubiprostone [Amitiza] 24 MCG PO SCH ×2 (08:30→21:18)
[2020-06-21] MEDS ORDERED: FLU VACC QS2020(65UP)/MF59C/PF 60 MCG/0.5 ML Syringe IM ONE (08:45)
[2020-06-21] MEDS ORDERED: Albumin 5% 500 ML IV ONE (11:59)
--- NOTE | 2020-06-21 14:03 | PCM.PN ---
- General Info Date of Service: 06/21/20 Admission Dx/Problem (Free Text): Admission Diagnosis/Problem Admission Diagnosis/Problem Hypotension Subjective Update: Admitted for increased weakness fatigue, hypotension and significant leg swelling causing difficulty ambulating. Patient was worked up for adrenal insufficiency versus hepatic cirrhosis versus worsening of her stage IV non-small cell cancer. She denies any shortness of breath, fever, chills, cough, dyspnea. Leg swelling has improved. - Review of Systems General: Reports: Weakness, Fatigue. Denies: Fever Pulmonary: Denies: Shortness of Breath, Pleuritic Chest Pain Cardiovascular: Denies: Chest Pain, Palpitations Gastrointestinal: Denies: Abdominal Pain, Constipation, Decreased Appetite Genitourinary: Denies: Dysuria, Frequency, Burning Musculoskeletal: Denies: Neck Pain, Shoulder Pain, Arm Pain Skin: Denies: Cyanosis, Jaundice, Mottled Neurological: Denies: Confusion, Dizziness, Headache Psychiatric: Denies: Confusion, Depression, Mood Lability - Patient Data Vitals - Most Recent: Last Vital Signs Temp 36.3 C 06/21/20 12:00 Pulse 90 06/21/20 12:00 Resp 17 06/21/20 12:00 BP 99/63 06/21/20 12:00 Pulse Ox 93 L 06/21/20 12:00 Weight - Most Recent: 66.542 kg I&O - Last 24 Hours: Intake & Output 06/20/20 06/21/20 06/21/20 22:59 06:59 14:59 Intake Total 840 1500 Output Total 1350 2250 Balance -510 -750 Lab Results Last 24 Hours: Laboratory Results - last 24 hr 06/20/20 06/20/20 06/21/20 Range/Units 08:20 15:11 05:20 WBC 7.38 (4.0-11.0) K/uL RBC 4.15 L (4.30-5.90) M/uL Hgb 12.9 (12.0-16.0) g/dL Hct 39.2 (36.0-46.0) % MCV 94.5 (80.0-98.0) fL MCH 31.1 (27.0-32.0) pg MCHC 32.9 (31.0-37.0) g/dL RDW Std Deviation 52.6 (28.0-62.0) fl RDW Coeff of Wili 15 (11.0-15.0) % Plt Count 339 (150-400) K/uL MPV 10.00 (7.40-12.00) fL Neut % (Auto) 74.7 (48.0-80.0) % Lymph % (Auto) 12.2 L (16.0-40.0) % [place] % (Auto) 11.4 (0.0-15.0) % Eos % (Auto) 1.4 (0.0-7.0) % Baso % (Auto) 0.3 (0.0-1.5) % Neut # (Auto) 5.5 (1.4-5.7) K/uL Lymph # (Auto) 0.9 (0.6-2.4) K/uL [place] # (Auto) 0.8 (0.0-0.8) K/uL Eos # (Auto) 0.1 (0.0-0.7) K/uL Baso # (Auto) 0.0 (0.0-0.1) K/uL Nucleated RBC % 0.0 /100WBC Nucleated RBCs # 0 K/uL Sodium (136-145) mmol/L Potassium 4.2 (3.5-5.1) mmol/L Chloride (98-107) mmol/L Carbon Dioxide (21.0-32.0) mmol/L BUN (7.0-18.0) mg/dL Creatinine (0.6-1.0) mg/dL Est Cr Clr Drug Dosing mL/min Estimated GFR (MDRD) ml/min Glucose (74-106) mg/dL Calcium (8.5-10.1) mg/dL Magnesium (1.8-2.4) mg/dL Total Bilirubin (0.2-1.0) mg/dL AST (15-37) IU/L ALT (14-63) IU/L Alkaline Phosphatase (46-116) U/L Total Protein (6.4-8.2) g/dL Albumin (3.4-5.0) g/dL Globulin (2.6-4.0) g/dL Albumin/Globulin Ratio (0.9-1.6) Cortisol 12.9 ug/dL 06/21/20 06/21/20 Range/Units 05:20 05:20 WBC (4.0-11.0) K/uL RBC (4.30-5.90) M/uL Hgb (12.0-16.0) g/dL Hct (36.0-46.0) % MCV (80.0-98.0) fL MCH (27.0-32.0) pg MCHC (31.0-37.0) g/dL RDW Std Deviation (28.0-62.0) fl RDW Coeff of Wili (11.0-15.0) % Plt Count (150-400) K/uL MPV (7.40-12.00) fL Neut % (Auto) (48.0-80.0) % Lymph % (Auto) (16.0-40.0) % [place] % (Auto) (0.0-15.0) % Eos % (Auto) (0.0-7.0) % Baso % (Auto) (0.0-1.5) % Neut # (Auto) (1.4-5.7) K/uL Lymph # (Auto) (0.6-2.4) K/uL [place] # (Auto) (0.0-0.8) K/uL Eos # (Auto) (0.0-0.7) K/uL Baso # (Auto) (0.0-0.1) K/uL Nucleated RBC % /100WBC Nucleated RBCs # K/uL Sodium 141 (136-145) mmol/L Potassium 3.8 (3.5-5.1) mmol/L Chloride 104 (98-107) mmol/L Carbon Dioxide 35.9 H (21.0-32.0) mmol/L BUN 5 L (7.0-18.0) mg/dL Creatinine 0.6 (0.6-1.0) mg/dL Est Cr Clr Drug Dosing 98.07 mL/min Estimated GFR (MDRD) > 60.0 ml/min Glucose 87 (74-106) mg/dL Calcium 8.2 L (8.5-10.1) mg/dL Magnesium 2.0 (1.8-2.4) mg/dL Total Bilirubin 0.5 (0.2-1.0) mg/dL AST 26 (15-37) IU/L ALT 19 (14-63) IU/L Alkaline Phosphatase 142 H (46-116) U/L Total Protein 4.7 L (6.4-8.2) g/dL Albumin 1.7 L (3.4-5.0) g/dL Globulin 3.0 (2.6-4.0) g/dL Albumin/Globulin Ratio 0.6 L (0.9-1.6) Cortisol ug/dL Med Orders - Current: Current Medications Albuterol (Ventolin Hfa) 0 gm INH Q4H PRN PRN Reason: WHEEZING Heparin Sodium (Porcine) (Heparin Sodium) 5,000 units SUBCUT Q12H [facility] Last Admin: 06/21/20 05:10 Dose: 5,000 units Documented by: Albumin Human (Buminate 5%) 500 mls @ 125 mls/hr IV ONETIME ONE Stop: 06/21/20 15:58 Last Admin: 06/21/20 12:34 Dose: 125 mls/hr Documented by: Lorazepam (Ativan) 1 mg PO TID PRN PRN Reason: Anxiety Midodrine (Midodrine) 10 mg PO TID [facility] Last Admin: 06/21/20 13:02 Dose: 10 mg Documented by: Miscellaneous Information (Remove Patch) 1 ea TRDERM Q24H [facility] Last Admin: 06/21/20 08:31 Dose: Not Given Documented by: Nicotine (Habitrol) 21 mg TRDERM DAILY [facility] Last Admin: 06/21/20 08:30 Dose: 21 mg Documented by: Ondansetron HCl (Zofran Odt) 4 mg PO Q4H PRN PRN Reason: nausea, able to take PO Oxycodone HCl (Oxycodone) 5 mg PO Q4H PRN PRN Reason: Pain (moderate 4-6) Last Admin: 06/21/20 12:53 Dose: 5 mg Documented by: Pantoprazole Sodium (Protonix) 40 mg PO DAILY [facility] Last Admin: 06/21/20 08:29 Dose: 40 mg Documented by: Lubiprostone [ (Amitiza] 24 Mcg) 1 each PO BID [facility] Last Admin: 06/21/20 08:30 Dose: 1 each Documented by: Pregabalin (Lyrica) 100 mg PO TID [facility] Last Admin: 06/21/20 13:02 Dose: 100 mg Documented by: Risperidone (Risperidal) 1 mg PO BID [facility] Last Admin: 06/21/20 08:29 Dose: 1 mg Documented by: Discontinued Medications Calcium Gluconate (Calcium Gluconate) 1 gm IVPUSH ONETIME ONE Stop: 06/19/20 15:00 Last Admin: 06/19/20 15:42 Dose: 1 gm Documented by: Heparin Sodium (Porcine) (Heparin Sodium) 5,000 units SUBCUT Q8H [facility] Last Admin: 06/19/20 20:37 Dose: Not Given Documented by: Sodium Chloride (Normal Saline) 1,000 mls @ 999 mls/hr IV .BOLUS ONE Stop: 06/19/20 14:35 Last Admin: 06/19/20 13:50 Dose: 999 mls/hr Documented by: Magnesium Sulfate (Magnesium Sulfate In Water Premix) 2 gm in 50 mls @ 50 mls/hr IV ONETIME ONE Stop: 06/19/20 16:14 Last Admin: 06/19/20 16:03 Dose: 50 mls/hr Documented by: Magnesium Sulfate 4 gm/ Premix 100 mls @ 50 mls/hr IV ONETIME ONE Stop: 06/20/20 12:32 Last Admin: 06/20/20 11:41 Dose: 50 mls/hr Documented by: Albumin Human (Buminate 5%) 500 mls @ 250 mls/hr IV 1100 ONE Stop: 06/20/20 12:59 Last Admin: 06/20/20 11:59 Dose: 250 mls/hr Documented by: Ibuprofen (Motrin) 200 mg PO Q4H PRN PRN Reason: Pain (mild 1-3) Influenza Virus Vaccine (Pharmacy To Dose - Influenza Vaccine) 1 each IM ONETIME ONE Stop: 06/20/20 09:01 Influenza Virus Vaccine (Fluad Quad 6945-6108 Syringe) 60 mcg IM .ONCE ONE Stop: 06/21/20 08:46 Midodrine (Midodrine) 5 mg PO TID [facility] Last Admin: 06/21/20 05:10 Dose: 5 mg Documented by: Lubiprostone 24 Mcg 24 each PO BID [facility] Lubiprostone [ (Amitiza] 24 Mcg) 0 each PO BID [facility] Last Admin: 06/20/20 10:18 Dose: Not Given Documented by: Potassium Chloride (Klor-Con 10) 60 meq PO ONETIME ONE Stop: 06/20/20 11:22 Last Admin: 06/20/20 11:43 Dose: 60 meq Documented by: - Exam General: Alert, Oriented Neck: Supple Lungs: Clear to Auscultation, Normal Respiratory Effort Cardiovascular: Regular Rate, Regular Rhythm GI/Abdominal Exam: Normal Bowel Sounds, Soft, Non-Tender Extremities: Normal Range of Motion, Pedal Edema, Leg Pain Sepsis Event Note - Evaluation Sepsis Screening Result: No Definite Risk - Focused Exam Vital Signs: Vital Signs Temp Pulse Resp BP Pulse Ox 06/21/20 12:00 36.3 C 90 17 99/63 93 L 06/21/20 07:29 36.9 C 83 16 88/53 L 93 L 06/21/20 04:00 37.1 C 90 16 90/54 L 95 - Problem List & Annotations (1) Leg edema SNOMED Code(s): 430337870 Code(s): R60.0 - LOCALIZED EDEMA Status: Acute Current Visit: Yes (2) Failure to thrive SNOMED Code(s): 90453526 Code(s): ZJH9129 - Status: Acute Current Visit: Yes (3) Hypotension SNOMED Code(s): 31497199 Code(s): I95.9 - HYPOTENSION, UNSPECIFIED Status: Acute Current Visit: Yes (4) Lung cancer metastatic to brain SNOMED Code(s): 95272740 Code(s): C34.90 - MALIGNANT NEOPLASM OF UNSP PART OF UNSP BRONCHUS OR LUNG; C79.31 - SECONDARY MALIGNANT NEOPLASM OF BRAIN Status: Acute Current Visit: Yes - Problem List Review Problem List Initiated/Reviewed/Updated: Yes - Plan Plan:: 64-year-old female with a significant past medical history of stage IV non-small cell lung cancer with metastases followed by chemo and radiation. Patient was admitted with increased weakness, fatigue and significant lower extremity swelling impairing her ambulation. 1. Weakness : Cortisol noted, TSH was within normal limits. Reached out to her oncology team consisting of and Dr. Marrero to discuss whether this is worsening of her underlying condition or possible side effect to her medication regimen. Also possibly failure to thrive 2. Bilateral lower extremity swelling: leg edema has improved today, no DVTs were found, encouraged ambulation with assistance as well as elevating legs above heart as much as possible. May consider Lasix however concern is for further reducing patient's blood pressure. Will also provide patient with compression stockings, infuse Albumin, 3. Hypotension: On home dose of midodrine, will increase the dose, Abdominal ul trasound indicated hepatic steatosis with no ascites. 4. Hypokalemia: resolved 5. Tobacco abuse: Provided nicotine patch 21 Dispo possibly to group home facility as patient is unable to perform ADLs although patient not keen on going to [place], will cont PT here for few days till medically stable for dc, DVT prophylaxis Heparin 5000 subcu every 12 hours daily, GI prophylaxis pantoprazole 40 IV daily, regular diet, activity with assistance.
[2020-06-21] MEDS ORDERED: Furosemide 20 MG/2 ML VIAL IVPUSH ONE (14:30)
[2020-06-22] MEDS: oxyCODONE 5 MG Tab PO PRN ×4 (01:33→18:52)
[2020-06-22 05:43] LABS: BLOOD UREA NITROGEN,BUN 6 mg/dL (7.0-18.0); CARBON DIOXIDE,CO2 34.5 mmol/L (21.0-32.0); CHLORIDE,CL 102 mmol/L (98-107); GLUCOSE RANDOM 89 mg/dL (74-106); POTASSIUM,K 3.5 mmol/L (3.5-5.1); SODIUM,NA 140 mmol/L (136-145)
[2020-06-22] MEDS: Heparin Sodium 5,000 Units/ML Vial SUBCUT SCH ×2 (06:11→18:38)
[2020-06-22] MEDS: Pregabalin 50 MG Cap PO SCH ×3 (06:11→21:00)
[2020-06-22] MEDS: Midodrine 5 MG Tab PO SCH ×3 (06:11→21:00)
[2020-06-22] MEDS ORDERED: Magnesium Sulfate/Water 2 GM/50 ML BAG IV ONE (08:35)
[2020-06-22] MEDS: risperiDONE 1 MG Tab PO SCH ×2 (09:46→20:58)
[2020-06-22] MEDS: Nicotine 21 MG/24 Hr Patch TRDERM SCH (09:46)
[2020-06-22] MEDS: Pantoprazole 40 MG Tab.CR PO SCH (09:46)
[2020-06-22] MEDS: Lubiprostone [Amitiza] 24 MCG PO SCH ×2 (09:47→20:58)
[2020-06-22] MEDS ORDERED: Albumin 5% 500 ML IV ONE (10:54)
--- NOTE | 2020-06-22 12:26 | PCM.PN ---
- General Info Date of Service: 06/22/20 Admission Dx/Problem (Free Text): Admission Diagnosis/Problem Admission Diagnosis/Problem Hypotension Subjective Update: Patient seen at bedside, She denies any shortness of breath, fever, chills, cough, dyspnea. Leg swelling has improved. - Review of Systems General: Reports: Weakness. Denies: Fever, Fatigue, Malaise Pulmonary: Denies: Shortness of Breath, Pleuritic Chest Pain Cardiovascular: Denies: Chest Pain, Palpitations Gastrointestinal: Denies: Abdominal Pain, Constipation, Decreased Appetite Genitourinary: Denies: Dysuria, Frequency, Burning Musculoskeletal: Denies: Neck Pain, Shoulder Pain, Arm Pain, Hand Pain Skin: Denies: Cyanosis, Jaundice, Mottled, Pallor - Patient Data Vitals - Most Recent: Last Vital Signs Temp 36.1 C 06/22/20 12:00 Pulse 76 06/22/20 12:00 Resp 20 06/22/20 12:00 BP 90/58 L 06/22/20 12:00 Pulse Ox 95 06/22/20 12:00 Weight - Most Recent: 66.542 kg I&O - Last 24 Hours: Intake & Output 06/21/20 06/22/20 06/22/20 22:59 06:59 14:59 Intake Total 960 680 Output Total 1050 Balance -90 680 Lab Results Last 24 Hours: Laboratory Results - last 24 hr 06/21/20 06/22/20 06/22/20 Range/Units 05:20 04:59 04:59 WBC 7.53 (4.0-11.0) K/uL RBC 4.10 L (4.30-5.90) M/uL Hgb 13.1 (12.0-16.0) g/dL Hct 38.7 (36.0-46.0) % MCV 94.4 (80.0-98.0) fL MCH 32.0 (27.0-32.0) pg MCHC 33.9 (31.0-37.0) g/dL RDW Std Deviation 52.1 (28.0-62.0) fl RDW Coeff of Wili 15 (11.0-15.0) % Plt Count 313 (150-400) K/uL MPV 9.80 (7.40-12.00) fL Neut % (Auto) 73.3 (48.0-80.0) % Lymph % (Auto) 11.8 L (16.0-40.0) % [place] % (Auto) 12.5 (0.0-15.0) % Eos % (Auto) 2.0 (0.0-7.0) % Baso % (Auto) 0.4 (0.0-1.5) % Neut # (Auto) 5.5 (1.4-5.7) K/uL Lymph # (Auto) 0.9 (0.6-2.4) K/uL [place] # (Auto) 0.9 H (0.0-0.8) K/uL Eos # (Auto) 0.2 (0.0-0.7) K/uL Baso # (Auto) 0.0 (0.0-0.1) K/uL Nucleated RBC % 0.0 /100WBC Nucleated RBCs # 0 K/uL Sodium 140 (136-145) mmol/L Potassium 3.5 (3.5-5.1) mmol/L Chloride 102 (98-107) mmol/L Carbon Dioxide 34.5 H (21.0-32.0) mmol/L BUN 6 L (7.0-18.0) mg/dL Creatinine 0.5 L (0.6-1.0) mg/dL Est Cr Clr Drug Dosing 117.68 mL/min Estimated GFR (MDRD) > 60.0 ml/min Glucose 89 (74-106) mg/dL Calcium 8.3 L (8.5-10.1) mg/dL Phosphorus 2.8 (2.6-4.7) mg/dL Magnesium 2.0 1.6 L (1.8-2.4) mg/dL Total Bilirubin 0.6 (0.2-1.0) mg/dL AST 25 (15-37) IU/L ALT 24 (14-63) IU/L Alkaline Phosphatase 139 H (46-116) U/L Total Protein 5.1 L (6.4-8.2) g/dL Albumin 2.2 L (3.4-5.0) g/dL Globulin 2.9 (2.6-4.0) g/dL Albumin/Globulin Ratio 0.8 L (0.9-1.6) Med Orders - Current: Current Medications Albuterol (Ventolin Hfa) 0 gm INH Q4HRRT PRN PRN Reason: WHEEZING Furosemide (Lasix) 20 mg IVPUSH ONETIME ONE Stop: 06/22/20 15:31 Heparin Sodium (Porcine) (Heparin Sodium) 5,000 units SUBCUT Q12H [facility] Last Admin: 06/22/20 06:11 Dose: 5,000 units Documented by: Albumin Human (Buminate 5%) 500 mls @ 125 mls/hr IV ONETIME ONE Stop: 06/22/20 14:53 Last Admin: 06/22/20 11:28 Dose: 125 mls/hr Documented by: Lorazepam (Ativan) 1 mg PO TID PRN PRN Reason: Anxiety Midodrine (Midodrine) 10 mg PO TID [facility] Last Admin: 06/22/20 06:11 Dose: 10 mg Documented by: Miscellaneous Information (Remove Patch) 1 ea TRDERM Q24H [facility] Last Admin: 06/22/20 09:47 Dose: Not Given Documented by: Nicotine (Habitrol) 21 mg TRDERM DAILY [facility] Last Admin: 06/22/20 09:46 Dose: 21 mg Documented by: Ondansetron HCl (Zofran Odt) 4 mg PO Q4H PRN PRN Reason: nausea, able to take PO Oxycodone HCl (Oxycodone) 5 mg PO Q4H PRN PRN Reason: Pain (moderate 4-6) Last Admin: 06/22/20 06:12 Dose: 5 mg Documented by: Pantoprazole Sodium (Protonix) 40 mg PO DAILY [facility] Last Admin: 06/22/20 09:46 Dose: 40 mg Documented by: Lubiprostone [ (Amitiza] 24 Mcg) 1 each PO BID [facility] Last Admin: 06/22/20 09:47 Dose: 1 each Documented by: Pregabalin (Lyrica) 100 mg PO TID [facility] Last Admin: 06/22/20 06:11 Dose: 100 mg Documented by: Risperidone (Risperidal) 1 mg PO BID [facility] Last Admin: 06/22/20 09:46 Dose: 1 mg Documented by: Discontinued Medications Albuterol (Ventolin Hfa) 0 gm INH Q4H PRN PRN Reason: WHEEZING Calcium Gluconate (Calcium Gluconate) 1 gm IVPUSH ONETIME ONE Stop: 06/19/20 15:00 Last Admin: 06/19/20 15:42 Dose: 1 gm Documented by: Furosemide (Lasix) 20 mg IVPUSH ONETIME ONE Stop: 06/21/20 14:31 Last Admin: 06/21/20 15:02 Dose: 20 mg Documented by: Heparin Sodium (Porcine) (Heparin Sodium) 5,000 units SUBCUT Q8H [facility] Last Admin: 06/19/20 20:37 Dose: Not Given Documented by: Sodium Chloride (Normal Saline) 1,000 mls @ 999 mls/hr IV .BOLUS ONE Stop: 06/19/20 14:35 Last Admin: 06/19/20 13:50 Dose: 999 mls/hr Documented by: Magnesium Sulfate (Magnesium Sulfate In Water Premix) 2 gm in 50 mls @ 50 mls/hr IV ONETIME ONE Stop: 06/19/20 16:14 Last Admin: 06/19/20 16:03 Dose: 50 mls/hr Documented by: Magnesium Sulfate 4 gm/ Premix 100 mls @ 50 mls/hr IV ONETIME ONE Stop: 06/20/20 12:32 Last Admin: 06/20/20 11:41 Dose: 50 mls/hr Documented by: Albumin Human (Buminate 5%) 500 mls @ 250 mls/hr IV 1100 ONE Stop: 06/20/20 12:59 Last Admin: 06/20/20 11:59 Dose: 250 mls/hr Documented by: Albumin Human (Buminate 5%) 500 mls @ 125 mls/hr IV ONETIME ONE Stop: 06/21/20 15:58 Last Admin: 06/21/20 12:34 Dose: 125 mls/hr Documented by: Magnesium Sulfate (Magnesium Sulfate In Water Premix) 2 gm in 50 mls @ 50 mls/hr IV ONETIME ONE Stop: 06/22/20 09:34 Last Admin: 06/22/20 09:44 Dose: 50 mls/hr Documented by: Ibuprofen (Motrin) 200 mg PO Q4H PRN PRN Reason: Pain (mild 1-3) Influenza Virus Vaccine (Pharmacy To Dose - Influenza Vaccine) 1 each IM ONETIME ONE Stop: 06/20/20 09:01 Influenza Virus Vaccine (Fluad Quad [id number] Syringe) 60 mcg IM .ONCE ONE Stop: 06/21/20 08:46 Midodrine (Midodrine) 5 mg PO TID [facility] Last Admin: 06/21/20 05:10 Dose: 5 mg Documented by: Lubiprostone 24 Mcg 24 each PO BID [facility] Lubiprostone [ (Amitiza] 24 Mcg) 0 each PO BID [facility] Last Admin: 06/20/20 10:18 Dose: Not Given Documented by: Potassium Chloride (Klor-Con 10) 60 meq PO ONETIME ONE Stop: 06/20/20 11:22 Last Admin: 06/20/20 11:43 Dose: 60 meq Documented by: - Exam General: Alert, Oriented Lungs: Clear to Auscultation, Normal Respiratory Effort Cardiovascular: Regular Rate, Regular Rhythm GI/Abdominal Exam: Normal Bowel Sounds, Soft, Non-Tender Extremities: Normal Range of Motion, Pedal Edema. No: Mottled, Pallor, Redness Sepsis Event Note - Evaluation Sepsis Screening Result: No Definite Risk - Focused Exam Vital Signs: Vital Signs Temp Pulse Resp BP Pulse Ox 06/22/20 12:00 36.1 C 76 20 90/58 L 95 06/22/20 08:00 36.6 C 86 19 85/55 L 94 L 06/22/20 04:00 36.8 C 68 19 89/58 L 97 - Problem List & Annotations (1) Leg edema SNOMED Code(s): 658200867 Code(s): R60.0 - LOCALIZED EDEMA Status: Acute Current Visit: Yes (2) Failure to thrive SNOMED Code(s): 43586771 Code(s): FCX9067 - Status: Acute Current Visit: Yes (3) Hypotension SNOMED Code(s): 00722103 Code(s): I95.9 - HYPOTENSION, UNSPECIFIED Status: Acute Current Visit: Yes (4) Lung cancer metastatic to brain SNOMED Code(s): 21883848 Code(s): C34.90 - MALIGNANT NEOPLASM OF UNSP PART OF UNSP BRONCHUS OR LUNG; C79.31 - SECONDARY MALIGNANT NEOPLASM OF BRAIN Status: Acute Current Visit: Yes (5) Hypomagnesemia SNOMED Code(s): 918942837 Code(s): E83.42 - HYPOMAGNESEMIA Status: Acute Current Visit: Yes - Problem List Review Problem List Initiated/Reviewed/Updated: Yes - My Orders Last 24 Hours: My Active Orders 06/21/20 14:05 Elevate Extremity [RC] CONTINUOUS Elevate Foot of Bed [RC] ASDIRECTED - Plan Plan:: 64-year-old female with a significant past medical history of stage IV non-small cell lung cancer with metastases followed by chemo and radiation. Patient was admitted with increased weakness, fatigue and significant lower extremity swelling impairing her ambulation. 1. Weakness : Cortisol noted, TSH was within normal limits. Weakness improving, PT is helping 2. Bilateral lower extremity swelling: leg edema has improved today, no DVTs were found, encouraged ambulation with assistance as well as elevating legs above heart as much as possible. Another Lasix dose IV, albumin infusion for hypotension, try DELANEY wraps instead of compression stockings, patient not tolerating compression stockings 3. Hypotension: midodrine dosage was increased, Abdominal ultrasound indicated hepatic steatosis with no ascites. 4. Hypokalemia: resolved 5. Tobacco abuse: Provided nicotine patch 21 6. Hypomagnesemia: repleted Dispo: will cont PT here for few days till medically stable for dc home, patient not keen on going to rehab facility, possible dc in AM DVT prophylaxis Heparin 5000 subcu every 12 hours daily, GI prophylaxis pantoprazole 40 IV daily, regular diet, activity with assistance.
[2020-06-22] MEDS ORDERED: Furosemide 20 MG/2 ML VIAL IVPUSH ONE (15:30)
[2020-06-23] MEDS: oxyCODONE 5 MG Tab PO PRN ×2 (00:57→08:55)
[2020-06-23] MEDS: Albuterol HFA 18 Gm Inhaler INH PRN (00:59)
[2020-06-23 06:05] LABS: BLOOD UREA NITROGEN,BUN 6 mg/dL (7.0-18.0); CARBON DIOXIDE,CO2 33.1 mmol/L (21.0-32.0); CHLORIDE,CL 105 mmol/L (98-107); GLUCOSE RANDOM 85 mg/dL (74-106); POTASSIUM,K 3.3 mmol/L (3.5-5.1); SODIUM,NA 143 mmol/L (136-145)
[2020-06-23] MEDS: Midodrine 5 MG Tab PO SCH ×3 (06:08→21:06)
[2020-06-23] MEDS: Pregabalin 50 MG Cap PO SCH ×3 (06:08→21:07)
[2020-06-23] MEDS: Heparin Sodium 5,000 Units/ML Vial SUBCUT SCH ×2 (06:09→18:07)
[2020-06-23] MEDS ORDERED: Magnesium Sulfate/Water 4 GM/100 ML BAG IV ONE (07:57)
[2020-06-23] MEDS ORDERED: Potassium Chloride 20 MEQ Tab.ER PO ONE (07:57)
[2020-06-23] MEDS: risperiDONE 1 MG Tab PO SCH ×2 (08:24→21:06)
[2020-06-23] MEDS: Pantoprazole 40 MG Tab.CR PO SCH (08:25)
[2020-06-23] MEDS: Nicotine 21 MG/24 Hr Patch TRDERM SCH (08:25)
[2020-06-23] MEDS: Lubiprostone [Amitiza] 24 MCG PO SCH ×2 (08:26→21:06)
[2020-06-23] MEDS ORDERED: oxyCODONE 5 MG Tab PO PRN (10:15)
--- NOTE | 2020-06-23 12:13 | PCM.PN ---
- General Info Date of Service: 06/23/20 Admission Dx/Problem (Free Text): Admission Diagnosis/Problem Admission Diagnosis/Problem Hypotension Subjective Update: Patient seen at bedside, very somnolent, after receiving her oxycodone, was able to wake her up after few attempts, she walked to bathroom and back, no motor neurological deficits - Review of Systems General: Reports: Weakness. Denies: Fever, Fatigue, Malaise Pulmonary: Denies: Shortness of Breath Cardiovascular: Denies: Chest Pain, Palpitations Gastrointestinal: Denies: Abdominal Pain, Constipation, Decreased Appetite Genitourinary: Denies: Dysuria, Frequency, Burning Musculoskeletal: Denies: Neck Pain, Shoulder Pain, Arm Pain Skin: Denies: Cyanosis, Jaundice, Mottled Neurological: Denies: Confusion, Dizziness, Headache - Patient Data Vitals - Most Recent: Last Vital Signs Temp 36.6 C 06/23/20 10:25 Pulse 76 06/23/20 10:25 Resp 16 06/23/20 10:25 BP 90/53 L 06/23/20 10:25 Pulse Ox 90 L 06/23/20 10:25 Weight - Most Recent: 66.542 kg I&O - Last 24 Hours: Intake & Output 06/22/20 06/23/20 06/23/20 22:59 06:59 14:59 Intake Total 980 640 Output Total 600 600 Balance 380 40 Lab Results Last 24 Hours: Laboratory Results - last 24 hr 06/20/20 06/23/20 06/23/20 Range/Units 08:20 05:10 05:10 WBC 8.47 (4.0-11.0) K/uL RBC 3.95 L (4.30-5.90) M/uL Hgb 12.4 (12.0-16.0) g/dL Hct 37.2 (36.0-46.0) % MCV 94.2 (80.0-98.0) fL MCH 31.4 (27.0-32.0) pg MCHC 33.3 (31.0-37.0) g/dL RDW Std Deviation 52.1 (28.0-62.0) fl RDW Coeff of Wili 15 (11.0-15.0) % Plt Count 319 (150-400) K/uL MPV 9.50 (7.40-12.00) fL Neut % (Auto) 78.4 (48.0-80.0) % Lymph % (Auto) 9.0 L (16.0-40.0) % [place] % (Auto) 10.7 (0.0-15.0) % Eos % (Auto) 1.5 (0.0-7.0) % Baso % (Auto) 0.4 (0.0-1.5) % Neut # (Auto) 6.6 H (1.4-5.7) K/uL Lymph # (Auto) 0.8 (0.6-2.4) K/uL [place] # (Auto) 0.9 H (0.0-0.8) K/uL Eos # (Auto) 0.1 (0.0-0.7) K/uL Baso # (Auto) 0.0 (0.0-0.1) K/uL Nucleated RBC % 0.0 /100WBC Nucleated RBCs # 0 K/uL Sodium 143 (136-145) mmol/L Potassium 3.3 L (3.5-5.1) mmol/L Chloride 105 (98-107) mmol/L Carbon Dioxide 33.1 H (21.0-32.0) mmol/L BUN 6 L (7.0-18.0) mg/dL Creatinine 0.4 L (0.6-1.0) mg/dL Est Cr Clr Drug Dosing 147.10 mL/min Estimated GFR (MDRD) > 60.0 ml/min Glucose 85 (74-106) mg/dL Calcium 8.3 L (8.5-10.1) mg/dL Phosphorus 2.7 (2.6-4.7) mg/dL Magnesium 1.6 L (1.8-2.4) mg/dL Total Bilirubin 0.6 (0.2-1.0) mg/dL AST 25 (15-37) IU/L ALT 17 (14-63) IU/L Alkaline Phosphatase 129 H (46-116) U/L Total Protein 5.0 L (6.4-8.2) g/dL Albumin 2.3 L (3.4-5.0) g/dL Globulin 2.7 (2.6-4.0) g/dL Albumin/Globulin Ratio 0.9 (0.9-1.6) ACTH 11.1 (7.2-63.3) pg/mL Med Orders - Current: Current Medications Albuterol (Ventolin Hfa) 0 gm INH Q4HRRT PRN PRN Reason: WHEEZING Last Admin: 06/23/20 00:59 Dose: 2 inhalation Documented by: Heparin Sodium (Porcine) (Heparin Sodium) 5,000 units SUBCUT Q12H [facility] Last Admin: 06/23/20 06:09 Dose: 5,000 units Documented by: Lorazepam (Ativan) 1 mg PO TID PRN PRN Reason: Anxiety Last Admin: 06/23/20 08:24 Dose: 1 mg Documented by: Midodrine (Midodrine) 10 mg PO TID [facility] Last Admin: 06/23/20 06:08 Dose: 10 mg Documented by: Miscellaneous Information (Remove Patch) 1 ea TRDERM Q24H [facility] Last Admin: 06/23/20 08:25 Dose: Not Given Documented by: Nicotine (Habitrol) 21 mg TRDERM DAILY [facility] Last Admin: 06/23/20 08:25 Dose: 21 mg Documented by: Ondansetron HCl (Zofran Odt) 4 mg PO Q4H PRN PRN Reason: nausea, able to take PO Oxycodone HCl (Oxycodone) 5 mg PO Q8H PRN PRN Reason: Pain (moderate 4-6) Pantoprazole Sodium (Protonix) 40 mg PO DAILY [facility] Last Admin: 06/23/20 08:25 Dose: 40 mg Documented by: Lubiprostone [ (Amitiza] 24 Mcg) 1 each PO BID [facility] Last Admin: 06/23/20 08:26 Dose: 1 each Documented by: Pregabalin (Lyrica) 100 mg PO TID [facility] Last Admin: 06/23/20 06:08 Dose: 100 mg Documented by: Risperidone (Risperidal) 1 mg PO BID [facility] Last Admin: 06/23/20 08:24 Dose: 1 mg Documented by: Discontinued Medications Albuterol (Ventolin Hfa) 0 gm INH Q4H PRN PRN Reason: WHEEZING Calcium Gluconate (Calcium Gluconate) 1 gm IVPUSH ONETIME ONE Stop: 06/19/20 15:00 Last Admin: 06/19/20 15:42 Dose: 1 gm Documented by: Furosemide (Lasix) 20 mg IVPUSH ONETIME ONE Stop: 06/21/20 14:31 Last Admin: 06/21/20 15:02 Dose: 20 mg Documented by: Furosemide (Lasix) 20 mg IVPUSH ONETIME ONE Stop: 06/22/20 15:31 Last Admin: 06/22/20 14:43 Dose: 20 mg Documented by: Heparin Sodium (Porcine) (Heparin Sodium) 5,000 units SUBCUT Q8H [facility] Last Admin: 06/19/20 20:37 Dose: Not Given Documented by: Sodium Chloride (Normal Saline) 1,000 mls @ 999 mls/hr IV .BOLUS ONE Stop: 06/19/20 14:35 Last Admin: 06/19/20 13:50 Dose: 999 mls/hr Documented by: Magnesium Sulfate (Magnesium Sulfate In Water Premix) 2 gm in 50 mls @ 50 mls/hr IV ONETIME ONE Stop: 06/19/20 16:14 Last Admin: 06/19/20 16:03 Dose: 50 mls/hr Documented by: Magnesium Sulfate 4 gm/ Premix 100 mls @ 50 mls/hr IV ONETIME ONE Stop: 06/20/20 12:32 Last Admin: 06/20/20 11:41 Dose: 50 mls/hr Documented by: Albumin Human (Buminate 5%) 500 mls @ 250 mls/hr IV 1100 ONE Stop: 06/20/20 12:59 Last Admin: 06/20/20 11:59 Dose: 250 mls/hr Documented by: Albumin Human (Buminate 5%) 500 mls @ 125 mls/hr IV ONETIME ONE Stop: 06/21/20 15:58 Last Admin: 06/21/20 12:34 Dose: 125 mls/hr Documented by: Magnesium Sulfate (Magnesium Sulfate In Water Premix) 2 gm in 50 mls @ 50 mls/hr IV ONETIME ONE Stop: 06/22/20 09:34 Last Admin: 06/22/20 09:44 Dose: 50 mls/hr Documented by: Albumin Human (Buminate 5%) 500 mls @ 125 mls/hr IV ONETIME ONE Stop: 06/22/20 14:53 Last Admin: 06/22/20 11:28 Dose: 125 mls/hr Documented by: Magnesium Sulfate (Magnesium Sulfate In Water Premix) 4 gm in 100 mls @ 50 mls/hr IV ONETIME ONE Stop: 06/23/20 09:56 Last Admin: 06/23/20 08:31 Dose: 50 mls/hr Documented by: Ibuprofen (Motrin) 200 mg PO Q4H PRN PRN Reason: Pain (mild 1-3) Influenza Virus Vaccine (Pharmacy To Dose - Influenza Vaccine) 1 each IM ONETIME ONE Stop: 06/20/20 09:01 Influenza Virus Vaccine (Fluad Quad Syringe) 60 mcg IM .ONCE ONE Stop: 06/21/20 08:46 Midodrine (Midodrine) 5 mg PO TID [facility] Last Admin: 06/21/20 05:10 Dose: 5 mg Documented by: Oxycodone HCl (Oxycodone) 5 mg PO Q4H PRN PRN Reason: Pain (moderate 4-6) Last Admin: 06/23/20 08:55 Dose: 5 mg Documented by: Lubiprostone 24 Mcg 24 each PO BID [facility] Lubiprostone [ (Amitiza] 24 Mcg) 0 each PO BID [facility] Last Admin: 06/20/20 10:18 Dose: Not Given Documented by: Potassium Chloride (Klor-Con 10) 60 meq PO ONETIME ONE Stop: 06/20/20 11:22 Last Admin: 06/20/20 11:43 Dose: 60 meq Documented by: Potassium Chloride (Klor-Con M20) 40 meq PO ONETIME ONE Stop: 06/23/20 07:58 Last Admin: 06/23/20 08:30 Dose: 40 meq Documented by: - Exam General: Alert, Oriented Neck: Supple Lungs: Clear to Auscultation, Normal Respiratory Effort Cardiovascular: Regular Rate, Regular Rhythm GI/Abdominal Exam: Normal Bowel Sounds, Soft, Non-Tender Extremities: Normal Inspection, Normal Range of Motion Neurological: No New Focal Deficit, Strength Equal Bilateral, Sensation Intact, Cranial Nerves Intact Sepsis Event Note - Evaluation Sepsis Screening Result: No Definite Risk - Focused Exam Vital Signs: Vital Signs Temp Pulse Resp BP Pulse Ox 06/23/20 10:25 36.6 C 76 16 90/53 L 90 L 06/23/20 07:26 36.8 C 84 17 96/54 L 91 L 06/23/20 04:00 36.4 C 86 18 100/57 L 91 L 06/23/20 00:36 36.6 C 81 18 96/53 L 93 L - Problem List & Annotations (1) Leg edema SNOMED Code(s): 566531564 Code(s): R60.0 - LOCALIZED EDEMA Status: Acute Current Visit: Yes (2) Failure to thrive SNOMED Code(s): 38811877 Code(s): XUL2144 - Status: Acute Current Visit: Yes (3) Hypotension SNOMED Code(s): 22739604 Code(s): I95.9 - HYPOTENSION, UNSPECIFIED Status: Acute Current Visit: Yes (4) Lung cancer metastatic to brain SNOMED Code(s): 49309772 Code(s): C34.90 - MALIGNANT NEOPLASM OF UNSP PART OF UNSP BRONCHUS OR LUNG; C79.31 - SECONDARY MALIGNANT NEOPLASM OF BRAIN Status: Acute Current Visit: Yes (5) Hypomagnesemia SNOMED Code(s): 557990660 Code(s): E83.42 - HYPOMAGNESEMIA Status: Acute Current Visit: Yes - Problem List Review Problem List Initiated/Reviewed/Updated: Yes - Plan Plan:: 64-year-old female with a significant past medical history of stage IV non-small cell lung cancer with metastases followed by chemo and radiation. Patient was admitted with increased weakness, fatigue and significant lower extremity swelling impairing her ambulation. 1. Weakness : Cortisol noted, TSH was within normal limits. Weakness improving, PT is helping, will decrease the dose of oxycodone secondary to somnolence. 2. Bilateral lower extremity swelling: leg edema has improved today, no DVTs were found, encouraged ambulation with assistance as well as elevating legs above heart as much as possible. Another Lasix dose IV, albumin infusion for hypotension, try DELANEY wraps instead of compression stockings, patient not tolerating compression stockings 3. Hypotension: midodrine dosage was increased, Abdominal ultrasound indicated hepatic steatosis with no ascites. 4. Hypokalemia: resolved 5. Tobacco abuse: Provided nicotine patch 6. Hypomagnesemia: repleted Dispo: will keep one more day due to today episode of somnolence, will cont PT here for few days till medically stable for dc home, possible dc in AM DVT prophylaxis Heparin 5000 subcu every 12 hours daily, GI prophylaxis pantoprazole 40 IV daily, regular diet, activity with assistance.
[2020-06-24] MEDS: Heparin Sodium 5,000 Units/ML Vial SUBCUT SCH (05:00)
[2020-06-24] MEDS: Midodrine 5 MG Tab PO SCH ×2 (05:00→13:54)
[2020-06-24] MEDS: Pregabalin 50 MG Cap PO SCH ×2 (05:00→13:54)
[2020-06-24] MEDS: Albuterol HFA 18 Gm Inhaler INH PRN (05:01)
[2020-06-24 06:25] LABS: BLOOD UREA NITROGEN,BUN 8 mg/dL (7.0-18.0); CARBON DIOXIDE,CO2 33.3 mmol/L (21.0-32.0); CHLORIDE,CL 104 mmol/L (98-107); GLUCOSE RANDOM 116 mg/dL (74-106); POTASSIUM,K 3.8 mmol/L (3.5-5.1); SODIUM,NA 141 mmol/L (136-145)
[2020-06-24] MEDS: Pantoprazole 40 MG Tab.CR PO SCH (08:05)
[2020-06-24] MEDS: risperiDONE 1 MG Tab PO SCH (08:05)
[2020-06-24] MEDS: Lubiprostone [Amitiza] 24 MCG PO SCH (08:05)
[2020-06-24] MEDS: Nicotine 21 MG/24 Hr Patch TRDERM SCH (08:06)
[2020-06-24] MEDS ORDERED: Magnesium Oxide 400 MG Tab PO ONE (10:15)
--- NOTE | 2020-06-24 10:16 | PCM.PN ---
- General Info Date of Service: 06/24/20 - Patient Data Vitals - Most Recent: Last Vital Signs Temp 36.6 C 06/24/20 07:47 Pulse 84 06/24/20 07:47 Resp 16 06/24/20 07:47 BP 124/75 06/24/20 07:47 Pulse Ox 91 L 06/24/20 07:47 Weight - Most Recent: 66.542 kg I&O - Last 24 Hours: Intake & Output 06/23/20 06/24/20 06/24/20 22:59 06:59 14:59 Intake Total 1180 1280 Output Total 400 1434 Balance 780 -154 Lab Results Last 24 Hours: Laboratory Results - last 24 hr 06/24/20 06/24/20 Range/Units 05:55 05:55 WBC 6.89 (4.0-11.0) K/uL RBC 3.71 L (4.30-5.90) M/uL Hgb 11.8 L (12.0-16.0) g/dL Hct 34.8 L (36.0-46.0) % MCV 93.8 (80.0-98.0) fL MCH 31.8 (27.0-32.0) pg MCHC 33.9 (31.0-37.0) g/dL RDW Std Deviation 51.8 (28.0-62.0) fl RDW Coeff of Wili 15 (11.0-15.0) % Plt Count 296 (150-400) K/uL MPV 9.60 (7.40-12.00) fL Neut % (Auto) 73.4 (48.0-80.0) % Lymph % (Auto) 12.5 L (16.0-40.0) % [place] % (Auto) 11.8 (0.0-15.0) % Eos % (Auto) 2.0 (0.0-7.0) % Baso % (Auto) 0.3 (0.0-1.5) % Neut # (Auto) 5.1 (1.4-5.7) K/uL Lymph # (Auto) 0.9 (0.6-2.4) K/uL [place] # (Auto) 0.8 (0.0-0.8) K/uL Eos # (Auto) 0.1 (0.0-0.7) K/uL Baso # (Auto) 0.0 (0.0-0.1) K/uL Nucleated RBC % 0.0 /100WBC Nucleated RBCs # 0 K/uL Sodium 141 (136-145) mmol/L Potassium 3.8 (3.5-5.1) mmol/L Chloride 104 (98-107) mmol/L Carbon Dioxide 33.3 H (21.0-32.0) mmol/L BUN 8 (7.0-18.0) mg/dL Creatinine 0.4 L (0.6-1.0) mg/dL Est Cr Clr Drug Dosing 147.10 mL/min Estimated GFR (MDRD) > 60.0 ml/min Glucose 116 H (74-106) mg/dL Calcium 7.9 L (8.5-10.1) mg/dL Phosphorus 2.6 (2.6-4.7) mg/dL Magnesium 1.8 (1.8-2.4) mg/dL Total Bilirubin 0.5 (0.2-1.0) mg/dL AST 22 (15-37) IU/L ALT 23 (14-63) IU/L Alkaline Phosphatase 129 H (46-116) U/L Total Protein 4.8 L (6.4-8.2) g/dL Albumin 2.0 L (3.4-5.0) g/dL Globulin 2.8 (2.6-4.0) g/dL Albumin/Globulin Ratio 0.7 L (0.9-1.6) Med Orders - Current: Current Medications Albuterol (Ventolin Hfa) 0 gm INH Q4HRRT PRN PRN Reason: WHEEZING Last Admin: 06/24/20 05:01 Dose: 2 puff Documented by: Furosemide (Lasix) 20 mg IVPUSH NOW ONE Stop: 06/24/20 10:17 Heparin Sodium (Porcine) (Heparin Sodium) 5,000 units SUBCUT Q12H [facility] Last Admin: 06/24/20 05:00 Dose: 5,000 units Documented by: Lorazepam (Ativan) 1 mg PO TID PRN PRN Reason: Anxiety Last Admin: 06/23/20 08:24 Dose: 1 mg Documented by: Magnesium Oxide (Magnesium Oxide) 400 mg PO ONETIME ONE Stop: 06/24/20 10:16 Midodrine (Midodrine) 10 mg PO TID [facility] Last Admin: 06/24/20 05:00 Dose: 10 mg Documented by: Miscellaneous Information (Remove Patch) 1 ea TRDERM Q24H [facility] Last Admin: 06/24/20 08:09 Dose: Not Given Documented by: Nicotine (Habitrol) 21 mg TRDERM DAILY [facility] Last Admin: 06/24/20 08:06 Dose: 21 mg Documented by: Ondansetron HCl (Zofran Odt) 4 mg PO Q4H PRN PRN Reason: nausea, able to take PO Oxycodone HCl (Oxycodone) 5 mg PO Q8H PRN PRN Reason: Pain (moderate 4-6) Pantoprazole Sodium (Protonix) 40 mg PO DAILY [facility] Last Admin: 06/24/20 08:05 Dose: 40 mg Documented by: Lubiprostone [ (Amitiza] 24 Mcg) 1 each PO BID [facility] Last Admin: 06/24/20 08:05 Dose: 1 each Documented by: Pregabalin (Lyrica) 100 mg PO TID [facility] Last Admin: 06/24/20 05:00 Dose: 100 mg Documented by: Risperidone (Risperidal) 1 mg PO BID [facility] Last Admin: 06/24/20 08:05 Dose: 1 mg Documented by: Discontinued Medications Albuterol (Ventolin Hfa) 0 gm INH Q4H PRN PRN Reason: WHEEZING Calcium Gluconate (Calcium Gluconate) 1 gm IVPUSH ONETIME ONE Stop: 06/19/20 15:00 Last Admin: 06/19/20 15:42 Dose: 1 gm Documented by: Furosemide (Lasix) 20 mg IVPUSH ONETIME ONE Stop: 06/21/20 14:31 Last Admin: 06/21/20 15:02 Dose: 20 mg Documented by: Furosemide (Lasix) 20 mg IVPUSH ONETIME ONE Stop: 06/22/20 15:31 Last Admin: 06/22/20 14:43 Dose: 20 mg Documented by: Heparin Sodium (Porcine) (Heparin Sodium) 5,000 units SUBCUT Q8H [facility] Last Admin: 06/19/20 20:37 Dose: Not Given Documented by: Sodium Chloride (Normal Saline) 1,000 mls @ 999 mls/hr IV .BOLUS ONE Stop: 06/19/20 14:35 Last Admin: 06/19/20 13:50 Dose: 999 mls/hr Documented by: Magnesium Sulfate (Magnesium Sulfate In Water Premix) 2 gm in 50 mls @ 50 mls/hr IV ONETIME ONE Stop: 06/19/20 16:14 Last Admin: 06/19/20 16:03 Dose: 50 mls/hr Documented by: Magnesium Sulfate 4 gm/ Premix 100 mls @ 50 mls/hr IV ONETIME ONE Stop: 06/20/20 12:32 Last Admin: 06/20/20 11:41 Dose: 50 mls/hr Documented by: Albumin Human (Buminate 5%) 500 mls @ 250 mls/hr IV 1100 ONE Stop: 06/20/20 12:59 Last Admin: 06/20/20 11:59 Dose: 250 mls/hr Documented by: Albumin Human (Buminate 5%) 500 mls @ 125 mls/hr IV ONETIME ONE Stop: 06/21/20 15:58 Last Admin: 06/21/20 12:34 Dose: 125 mls/hr Documented by: Magnesium Sulfate (Magnesium Sulfate In Water Premix) 2 gm in 50 mls @ 50 mls/hr IV ONETIME ONE Stop: 06/22/20 09:34 Last Admin: 06/22/20 09:44 Dose: 50 mls/hr Documented by: Albumin Human (Buminate 5%) 500 mls @ 125 mls/hr IV ONETIME ONE Stop: 06/22/20 14:53 Last Admin: 06/22/20 11:28 Dose: 125 mls/hr Documented by: Magnesium Sulfate (Magnesium Sulfate In Water Premix) 4 gm in 100 mls @ 50 mls/ hr IV ONETIME ONE Stop: 06/23/20 09:56 Last Admin: 06/23/20 08:31 Dose: 50 mls/hr Documented by: Ibuprofen (Motrin) 200 mg PO Q4H PRN PRN Reason: Pain (mild 1-3) Influenza Virus Vaccine (Pharmacy To Dose - Influenza Vaccine) 1 each IM ONETIME ONE Stop: 06/20/20 09:01 Influenza Virus Vaccine (Fluad Quad 1984-7440 Syringe) 60 mcg IM .ONCE ONE Stop: 06/21/20 08:46 Midodrine (Midodrine) 5 mg PO TID [facility] Last Admin: 06/21/20 05:10 Dose: 5 mg Documented by: Oxycodone HCl (Oxycodone) 5 mg PO Q4H PRN PRN Reason: Pain (moderate 4-6) Last Admin: 06/23/20 08:55 Dose: 5 mg Documented by: Lubiprostone 24 Mcg 24 each PO BID [facility] Lubiprostone [ (Amitiza] 24 Mcg) 0 each PO BID [facility] Last Admin: 06/20/20 10:18 Dose: Not Given Documented by: Potassium Chloride (Klor-Con 10) 60 meq PO ONETIME ONE Stop: 06/20/20 11:22 Last Admin: 06/20/20 11:43 Dose: 60 meq Documented by: Potassium Chloride (Klor-Con M20) 40 meq PO ONETIME ONE Stop: 06/23/20 07:58 Last Admin: 06/23/20 08:30 Dose: 40 meq Documented by: Sepsis Event Note - Evaluation Sepsis Screening Result: No Definite Risk - Focused Exam Vital Signs: Vital Signs Temp Pulse Resp BP BP Pulse Ox 06/24/20 07:47 36.6 C 84 16 124/75 91 L 06/24/20 03:35 36.9 C 91 16 98/50 L 92 L 06/23/20 23:48 92 L 06/23/20 23:42 37.0 C 86 16 90/56 L 88 L - Problem List & Annotations (1) Leg edema SNOMED Code(s): 703916573 Code(s): R60.0 - LOCALIZED EDEMA Status: Acute Current Visit: Yes (2) Failure to thrive SNOMED Code(s): 06805952 Code(s): PUD6084 - Status: Acute Current Visit: Yes (3) Hypotension SNOMED Code(s): 09892383 Code(s): I95.9 - HYPOTENSION, UNSPECIFIED Status: Acute Current Visit: Yes (4) Lung cancer metastatic to brain SNOMED Code(s): 85173193 Code(s): C34.90 - MALIGNANT NEOPLASM OF UNSP PART OF UNSP BRONCHUS OR LUNG; C79.31 - SECONDARY MALIGNANT NEOPLASM OF BRAIN Status: Acute Current Visit: Yes (5) Hypomagnesemia SNOMED Code(s): 921739002 Code(s): E83.42 - HYPOMAGNESEMIA Status: Acute Current Visit: Yes - My Orders Last 24 Hours: My Active Orders 06/24/20 10:15 Magnesium Oxide 400 mg PO ONETIME ONE 06/24/20 10:16 Furosemide [Lasix] 20 mg IVPUSH NOW ONE - Plan Plan:: 64-year-old female with a significant past medical history of stage IV non-small cell lung cancer with metastases followed by chemo and radiation. Patient was admitted with increased weakness, fatigue and significant lower extremity swelling impairing her ambulation. 1. Weakness : Cortisol noted, TSH was within normal limits. Weakness improving, PT is helping, will decrease the dose of oxycodone secondary to somnolence. 2. Bilateral lower extremity swelling: leg edema has improved today, no DVTs were found, encouraged ambulation with assistance as well as elevating legs above heart as much as possible. Another Lasix dose IV, albumin infusion for hypotension, try DELANEY wraps instead of compression stockings, patient not tolerating compression stockings 3. Hypotension: midodrine dosage was increased, Abdominal ultrasound indicated hepatic steatosis with no ascites. 4. Hypokalemia: resolved 5. Tobacco abuse: Provided nicotine patch 6. Hypomagnesemia: repleted Dispo: will keep one more day due to today episode of somnolence, will cont PT here for few days till medically stable for dc home, possible dc in AM DVT prophylaxis Heparin 5000 subcu every 12 hours daily, GI prophylaxis pantoprazole 40 IV daily, regular diet, activity with assistance.
[2020-06-24] MEDS ORDERED: Furosemide 20 MG/2 ML VIAL IVPUSH ONE (10:30)
[2020-06-24 11:24] VITALS: BP 114/66; PULSE 69
--- NOTE | 2020-06-24 12:08 | PCM.DCSUM1 ---
Discharge Summary - Hospital Course Diagnosis: Stroke: No - Discharge Data Discharge Date: 06/24/20 Discharge Disposition: Home, Self-Care 01 Condition: Stable - Referral to Home Health Primary Care Physician: PCP None - Discharge Diagnosis/Problem(s) (1) Leg edema SNOMED Code(s): 816239128 ICD Code: R60.0 - LOCALIZED EDEMA Status: Acute Current Visit: Yes (2) Failure to thrive SNOMED Code(s): 72223883 ICD Code: VUD9314 - Status: Acute Current Visit: Yes (3) Hypotension SNOMED Code(s): 16876576 ICD Code: I95.9 - HYPOTENSION, UNSPECIFIED Status: Acute Current Visit: Yes (4) Lung cancer metastatic to brain SNOMED Code(s): 13727426 ICD Code: C34.90 - MALIGNANT NEOPLASM OF UNSP PART OF UNSP BRONCHUS OR LUNG; C79.31 - SECONDARY MALIGNANT NEOPLASM OF BRAIN Status: Acute Current Visit: Yes (5) Hypomagnesemia SNOMED Code(s): 019840115 ICD Code: E83.42 - HYPOMAGNESEMIA Status: Acute Current Visit: Yes - Patient Summary/Data Consults: Consultations 06/19/20 17:26 PT Evaluation and Treatment [CONS] Routine 06/20/20 12:03 Consult to Case Management/Sanitation Associate [CONS] Routine Consult to Home Health [CONS] Routine - Patient Instructions Diet: Usual Diet as Tolerated Activity: As Tolerated Driving: Do Not Drive Showering/Bathing: May Shower Notify Provider of: Fever, Increased Pain, Swelling and Redness, Drainage, Nausea and/or Vomiting - Discharge Plan *PRESCRIPTION DRUG MONITORING PROGRAM REVIEWED*: Not Applicable *COPY OF PRESCRIPTION DRUG MONITORING REPORT IN PATIENT BARRY: Not Applicable Home Medications: Home Meds LORazepam 1 mg PO TID PRN 04/07/18 [History] Ondansetron [Zofran] 8 mg PO TID PRN 04/07/18 [History] Pregabalin [Lyrica] 100 mg PO TID 04/07/18 [History] Lubiprostone [Amitiza] 24 mcg PO BID 06/19/20 [History] Midodrine 5 mg PO TID 06/19/20 [History] Pantoprazole [ProTONIX] 40 mg PO DAILY 06/19/20 [History] Pembrolizumab [Keytruda] 200 mg IV ASDIRECTED 06/19/20 [History] fluorouraciL [Fluorouracil] 1 applic TOP BID 06/19/20 [History] risperiDONE [Risperdal] 1 mg PO BID 06/19/20 [History] Albuterol Sulfate [Proair Hfa] 2 inh IH Q4H PRN 06/20/20 [History] Clindamycin Phos/Benzoyl Perox [Clindamycin-Benzoyl Perox 1-5%] 1 applic TOP BEDTIME PRN 06/20/20 [History] Fluticasone Propionate [Flovent HFA 110 MCG] 2 inh IH BID 06/20/20 [History] Umeclidinium Brm/Vilanterol Tr [Anoro Ellipta 62.5-25 MCG] 1 inh IH DAILY 06/20/20 [History] risperiDONE [Risperdal] 1 mg PO BID 06/20/20 [History] oxyCODONE 2.5 mg PO Q8H PRN tablet 06/24/20 [Rx] Oxygen Therapy Mode: Room Air Patient Handouts: Hypotension, [id number], Edema, [id number] Referrals: Dread Bhakta MD [Physician] - Kenneth Muller MD [Ordering Only Provider] - 06/26/20 12:30 pm - Patient Data Vitals - Most Recent: Last Vital Signs Temp 36.7 C 06/24/20 11:24 Pulse 69 06/24/20 11:24 Resp 16 06/24/20 11:24 BP 114/66 06/24/20 11:24 Pulse Ox 95 06/24/20 11:24 Weight - Most Recent: 66.542 kg I&O - Last 24 hours: Intake & Output 06/23/20 06/24/20 06/24/20 22:59 06:59 14:59 Intake Total 1180 1280 Output Total 400 1434 Balance 780 -154 Lab Results - Last 24 hrs: Laboratory Results - last 24 hr 06/24/20 06/24/20 Range/Units 05:55 05:55 WBC 6.89 (4.0-11.0) K/uL RBC 3.71 L (4.30-5.90) M/uL Hgb 11.8 L (12.0-16.0) g/dL Hct 34.8 L (36.0-46.0) % MCV 93.8 (80.0-98.0) fL MCH 31.8 (27.0-32.0) pg MCHC 33.9 (31.0-37.0) g/dL RDW Std Deviation 51.8 (28.0-62.0) fl RDW Coeff of Wili 15 (11.0-15.0) % Plt Count 296 (150-400) K/uL MPV 9.60 (7.40-12.00) fL Neut % (Auto) 73.4 (48.0-80.0) % Lymph % (Auto) 12.5 L (16.0-40.0) % [place] % (Auto) 11.8 (0.0-15.0) % Eos % (Auto) 2.0 (0.0-7.0) % Baso % (Auto) 0.3 (0.0-1.5) % Neut # (Auto) 5.1 (1.4-5.7) K/uL Lymph # (Auto) 0.9 (0.6-2.4) K/uL [place] # (Auto) 0.8 (0.0-0.8) K/uL Eos # (Auto) 0.1 (0.0-0.7) K/uL Baso # (Auto) 0.0 (0.0-0.1) K/uL Nucleated RBC % 0.0 /100WBC Nucleated RBCs # 0 K/uL Sodium 141 (136-145) mmol/L Potassium 3.8 (3.5-5.1) mmol/L Chloride 104 (98-107) mmol/L Carbon Dioxide 33.3 H (21.0-32.0) mmol/L BUN 8 (7.0-18.0) mg/dL Creatinine 0.4 L (0.6-1.0) mg/dL Est Cr Clr Drug Dosing 147.10 mL/min Estimated GFR (MDRD) > 60.0 ml/min Glucose 116 H (74-106) mg/dL Calcium 7.9 L (8.5-10.1) mg/dL Phosphorus 2.6 (2.6-4.7) mg/dL Magnesium 1.8 (1.8-2.4) mg/dL Total Bilirubin 0.5 (0.2-1.0) mg/dL AST 22 (15-37) IU/L ALT 23 (14-63) IU/L Alkaline Phosphatase 129 H (46-116) U/L Total Protein 4.8 L (6.4-8.2) g/dL Albumin 2.0 L (3.4-5.0) g/dL Globulin 2.8 (2.6-4.0) g/dL Albumin/Globulin Ratio 0.7 L (0.9-1.6) Med Orders - Current: Current Medications Albuterol (Ventolin Hfa) 0 gm INH Q4HRRT PRN PRN Reason: WHEEZING Last Admin: 06/24/20 05:01 Dose: 2 puff Documented by: Heparin Sodium (Porcine) (Heparin Sodium) 5,000 units SUBCUT Q12H [facility] Last Admin: 06/24/20 05:00 Dose: 5,000 units Documented by: Lorazepam (Ativan) 1 mg PO TID PRN PRN Reason: Anxiety Last Admin: 06/23/20 08:24 Dose: 1 mg Documented by: Midodrine (Midodrine) 10 mg PO TID [facility] Last Admin: 06/24/20 05:00 Dose: 10 mg Documented by: Miscellaneous Information (Remove Patch) 1 ea TRDERM Q24H [facility] Last Admin: 06/24/20 08:09 Dose: Not Given Documented by: Nicotine (Habitrol) 21 mg TRDERM DAILY [facility] Last Admin: 06/24/20 08:06 Dose: 21 mg Documented by: Ondansetron HCl (Zofran Odt) 4 mg PO Q4H PRN PRN Reason: nausea, able to take PO Oxycodone HCl (Oxycodone) 5 mg PO Q8H PRN PRN Reason: Pain (moderate 4-6) Pantoprazole Sodium (Protonix) 40 mg PO DAILY [facility] Last Admin: 06/24/20 08:05 Dose: 40 mg Documented by: Lubiprostone [ (Amitiza] 24 Mcg) 1 each PO BID [facility] Last Admin: 06/24/20 08:05 Dose: 1 each Documented by: Pregabalin (Lyrica) 100 mg PO TID [facility] Last Admin: 06/24/20 05:00 Dose: 100 mg Documented by: Risperidone (Risperidal) 1 mg PO BID [facility] Last Admin: 06/24/20 08:05 Dose: 1 mg Documented by: Discontinued Medications Albuterol (Ventolin Hfa) 0 gm INH Q4H PRN PRN Reason: WHEEZING Calcium Gluconate (Calcium Gluconate) 1 gm IVPUSH ONETIME ONE Stop: 06/19/20 15:00 Last Admin: 06/19/20 15:42 Dose: 1 gm Documented by: Furosemide (Lasix) 20 mg IVPUSH ONETIME ONE Stop: 06/21/20 14:31 Last Admin: 06/21/20 15:02 Dose: 20 mg Documented by: Furosemide (Lasix) 20 mg IVPUSH ONETIME ONE Stop: 06/22/20 15:31 Last Admin: 06/22/20 14:43 Dose: 20 mg Documented by: Furosemide (Lasix) 20 mg IVPUSH NOW ONE Stop: 06/24/20 10:31 Last Admin: 06/24/20 11:14 Dose: 20 mg Documented by: Heparin Sodium (Porcine) (Heparin Sodium) 5,000 units SUBCUT Q8H [facility] Last Admin: 06/19/20 20:37 Dose: Not Given Documented by: Sodium Chloride (Normal Saline) 1,000 mls @ 999 mls/hr IV .BOLUS ONE Stop: 06/19/20 14:35 Last Admin: 06/19/20 13:50 Dose: 999 mls/hr Documented by: Magnesium Sulfate (Magnesium Sulfate In Water Premix) 2 gm in 50 mls @ 50 mls/hr IV ONETIME ONE Stop: 06/19/20 16:14 Last Admin: 06/19/20 16:03 Dose: 50 mls/hr Documented by: Magnesium Sulfate 4 gm/ Premix 100 mls @ 50 mls/hr IV ONETIME ONE Stop: 06/20/20 12:32 Last Admin: 06/20/20 11:41 Dose: 50 mls/hr Documented by: Albumin Human (Buminate 5%) 500 mls @ 250 mls/hr IV 1100 ONE Stop: 06/20/20 12:59 Last Admin: 06/20/20 11:59 Dose: 250 mls/hr Documented by: Albumin Human (Buminate 5%) 500 mls @ 125 mls/hr IV ONETIME ONE Stop: 06/21/20 15:58 Last Admin: 06/21/20 12:34 Dose: 125 mls/hr Documented by: Magnesium Sulfate (Magnesium Sulfate In Water Premix) 2 gm in 50 mls @ 50 mls/hr IV ONETIME ONE Stop: 06/22/20 09:34 Last Admin: 06/22/20 09:44 Dose: 50 mls/hr Documented by: Albumin Human (Buminate 5%) 500 mls @ 125 mls/hr IV ONETIME ONE Stop: 06/22/20 14:53 Last Admin: 06/22/20 11:28 Dose: 125 mls/hr Documented by: Magnesium Sulfate (Magnesium Sulfate In Water Premix) 4 gm in 100 mls @ 50 mls/hr IV ONETIME ONE Stop: 06/23/20 09:56 Last Admin: 06/23/20 08:31 Dose: 50 mls/hr Documented by: Ibuprofen (Motrin) 200 mg PO Q4H PRN PRN Reason: Pain (mild 1-3) Influenza Virus Vaccine (Pharmacy To Dose - Influenza Vaccine) 1 each IM ONETIME ONE Stop: 06/20/20 09:01 Influenza Virus Vaccine (Fluad Quad [id number] Syringe) 60 mcg IM .ONCE ONE Stop: 06/21/20 08:46 Magnesium Oxide (Magnesium Oxide) 400 mg PO ONETIME ONE Stop: 06/24/20 10:16 Last Admin: 06/24/20 11:13 Dose: 400 mg Documented by: Midodrine (Midodrine) 5 mg PO TID [facility] Last Admin: 06/21/20 05:10 Dose: 5 mg Documented by: Oxycodone HCl (Oxycodone) 5 mg PO Q4H PRN PRN Reason: Pain (moderate 4-6) Last Admin: 06/23/20 08:55 Dose: 5 mg Documented by: Lubiprostone 24 Mcg 24 each PO BID [facility] Lubiprostone [ (Amitiza] 24 Mcg) 0 each PO BID [facility] Last Admin: 06/20/20 10:18 Dose: Not Given Documented by: Potassium Chloride (Klor-Con 10) 60 meq PO ONETIME ONE Stop: 06/20/20 11:22 Last Admin: 06/20/20 11:43 Dose: 60 meq Documented by: Potassium Chloride (Klor-Con M20) 40 meq PO ONETIME ONE Stop: 06/23/20 07:58 Last Admin: 06/23/20 08:30 Dose: 40 meq Documented by:
== END 2020-06-24 14:00 | disposition home health service (06) | DRG 315 ==
LOC: MW.ED 11:45 → MW.MS 15:00 → OBSVTOIN 06-20 12:15 → MW.MS 06-20 12:55
PROVIDERS: ADMIT Surgery; ATTEND Internal Medicine
DX: I95.9 Hypotension, unspecified (principal); R53.1 Weakness; R60.9 Edema, unspecified; C79.31 Secondary malignant neoplasm of brain; H54.7 Unspecified visual loss; C34.90 Malignant neoplasm of unspecified part of unspecified bronchus or lung; E83.42 Hypomagnesemia; Z85.118 Personal history of other malignant neoplasm of bronchus and lung; Z85.841 Personal history of malignant neoplasm of brain; J44.9 Chronic obstructive pulmonary disease, unspecified; F41.9 Anxiety disorder, unspecified; Z88.8 Allergy status to other drugs, medicaments and biological substances; F32.9 Major depressive disorder, single episode, unspecified; F17.200 Nicotine dependence, unspecified, uncomplicated; F17.210 Nicotine dependence, cigarettes, uncomplicated; Z20.822 Contact with and (suspected) exposure to COVID-19; E87.6 Hypokalemia; K76.0 Fatty (change of) liver, not elsewhere classified; R40.0 Somnolence; Z92.3 Personal history of irradiation; Z79.899 Other long term (current) drug therapy; Z88.0 Allergy status to penicillin; Z88.6 Allergy status to analgesic agent; Z85.89 Personal history of malignant neoplasm of other organs and systems
CPT/HCPCS: 0240U; 36415; 71045; 71045-26; 76705; 76705-26; 80053; 81003; 82024; 82533; 83690; 83735; 83880; 84100; 84132; 84443; 84484; 85025; 85610; 93005; 93010; 93970; 93970-26; 97110-GP; 97116-GP; 97161-GP; 97530-GP; 99283; 99285-25; A9270-GY; J0610; J1644; J1940; J3475; J3535-GY; J7030

== ENCOUNTER 2020-09-11 12:20 | Inpatient (IN) | payer MEDICAID ==
[2020-09-11] MEDS ORDERED: Midodrine 5 MG Tab PO STA (12:49)
[2020-09-11] MEDS ORDERED: Sodium Chloride 0.9% 500 ML IV SCH ×2 (13:00→18:00)
[2020-09-11 13:17] LABS: BLOOD UREA NITROGEN,BUN 8 mg/dL (7.0-18.0); CARBON DIOXIDE,CO2 32.9 mmol/L (21.0-32.0); CHLORIDE,CL 94 mmol/L (98-107); GLUCOSE RANDOM 104 mg/dL (74-106); POTASSIUM,K 3.3 mmol/L (3.5-5.1); SODIUM,NA 133 mmol/L (136-145)
--- NOTE | 2020-09-11 14:18 | CR ---
INDICATION: Chest pain. TECHNIQUE: Upright portable AP image of the chest. COMPARISON: 06/19/2020. FINDINGS: New somewhat linear opacity at the right base along with mild pleural thickening along the lateral right base. No pleural effusion or pneumothorax. Heart size and pulmonary vasculature within normal limits. No obvious rib fracture or other significant osseous abnormality. IMPRESSION: New somewhat linear opacity at the lateral right base along with adjacent new mild pleural thickening. Question small infiltrate in this region. Dictated by Dannie Mejias MD @ Sep 11 2020 2:14PM Signed by Dr. Dannie Mejias @ Sep 11 2020 2:17PM
[2020-09-11] MEDS ORDERED: Potassium Chloride 10% 20 MEQ/15 ML Soln 30 ML UD Cup PO ONE (14:55)
[2020-09-11] MEDS ORDERED: Hydrocortisone Sodium Succinate 100 MG/2 ML SDV IVPUSH ONE (16:00)
[2020-09-11] MEDS ORDERED: cefTRIAXone 1 GM Vial IVPUSH ONE (17:56)
[2020-09-11] MEDS ORDERED: Azithromycin 500 MG in Sodium Chloride 0.9% 250 ML IV SCH (18:00)
[2020-09-11] MEDS ORDERED: Albuterol/Ipratropium 3.0-0.5 MG/3 ML Neb Soln NEB PRN (18:44)
[2020-09-11] MEDS ORDERED: Ondansetron 4 MG/2 ML SDV IVPUSH PRN (18:44)
[2020-09-11] MEDS ORDERED: Morphine 10 MG/ML Syringe IVPUSH PRN (18:44)
--- NOTE | 2020-09-11 19:08 | PCM.HP.2 ---
H&P History of Present Illness - General Date of Service: 09/11/20 Admit Problem/Dx: Admission Diagnosis/Problem Admission Diagnosis/Problem Hypotension - History of Present Illness Initial Comments - Free Text/Narative: This is a 65-year-old woman with metastatic lung cancer and history of hypotension who is on midodrine who comes to the emergency department with a chief complaint of low blood pressure. The patient states that she has a history of low blood pressure and the RN checked her blood pressure at home and is found to be low in 60s. She currently denies any chest pain, abdominal pain, nausea vomiting, headache, blurry vision. She states that she did experience some bright lights in the front of her eyes earlier this morning but has not had any since. She states she on immunotherapy.She denies any recent falls or any other injury. She denies any numbness or tingling of her lower extremities, bowel incontinence or urinary incontinence. Patient states that her father few days back , although she wasn't very close to him it took a toll on her and she hasn't been eating and drinking as usual. She got very emotional and tearful. Patient thinks her cancer isnt getting better altough she is supposed to get a PET scan in near future before her next immunotherapy. She states if her cancer isnt better she will likely turn towards more comfort measures rather than aggressive care. In the ER patient was found to have low bp with SBP in 70-80s, ekg showed Sinus rhythm with left ventricular fascicular block, unchanged from prior ekg, CBC is unremarkable. BMP reveals hyponatremia at 133, hypokalemia at 3.3, hypochloremia at 94, metabolic alkalosis with a bicarbonate of 32.9. Hypomagnesemia at 7.9 and hypermagnesemia 3.1. She was requiring 2 lts of oxygen, Troponin is negative. Covid is negative, Chest x-ray reveals a new somewhat linear opacity at the lateral right base along the adjacent new mild pleural thickening with possible infiltrate. Patient received some IV fluids , IV steroids and midodrine but her pressures were still on softer side, patient was admitted for further management of Acute on chronic hypotension, and Acute on chronic hypoxia likely secondary to possible community-acquired pneumonia versus lung cancer. back pain Pain Score (Numeric/FACES): 5 - Related Data Allergies/Adverse Reactions: Allergies Allergy/AdvReac Type Severity Reaction Status Date / Time naproxen [From Aleve] Allergy Difficulty Verified 09/11/20 19:55 Breathing Penicillins Allergy Other Verified 09/11/20 19:55 Home Medications: Home Meds LORazepam 1 mg PO TID PRN 04/07/18 [History] Ondansetron [Zofran] 8 mg PO TID PRN 04/07/18 [History] Pregabalin [Lyrica] 100 mg PO TID 04/07/18 [History] Lubiprostone [Amitiza] 24 mcg PO BID 06/19/20 [History] Midodrine 10 mg PO TID 06/19/20 [History] Pantoprazole [ProTONIX] 40 mg PO DAILY 06/19/20 [History] Pembrolizumab [Keytruda] 200 mg IV .EVERY 3 WEEKS 06/19/20 [History] fluorouraciL [Fluorouracil] 1 applic TOP BID 06/19/20 [History] Albuterol Sulfate [Proair Hfa] 2 inh IH Q4H PRN 06/20/20 [History] Umeclidinium Brm/Vilanterol Tr [Anoro Ellipta 62.5-25 MCG] 1 inh IH DAILY 06/20/20 [History] risperiDONE [Risperdal] 1 mg PO BID 06/20/20 [History] oxyCODONE 2.5 mg PO Q8H PRN tablet 06/24/20 [Rx] Bumetanide 1 mg PO DAILY 09/11/20 [History] Clindamycin Phos/Benzoyl Perox [Clinda-Benzoyl Perox 1-5% Pump] 1 applic TOP BID 09/11/20 [History] Past Medical History HEENT History: Reports: Other (See Below) Other HEENT History: uses corrective glasses Respiratory History: Reports: COPD CONGRESSIONAL REPRESENTATIVE History: Reports: Neurological History: Reports: Other (See Below) 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 Adrenal cancer - Infectious Disease History Infectious Disease History: Reports: Chicken Pox, Measles, Mumps - Past Surgical History Respiratory Surgical History: Reports: Lung Biopsies GI Surgical History: Reports: Cholecystectomy Female Surgical History: Reports: Tubal Ligation Other Endocrine Surgeries/Procedures: Adrenal Cancer Oncologic Surgical History: Reports: None Social & Family History - Family History Family Medical History: No Pertinent Family History - Tobacco Use Packs/Tins Daily: 1 - Caffeine Use Caffeine Use: Reports: None - Recreational Drug Use Recreational Drug Use: No H&P Review of Systems - Review of Systems: Review Of Systems: See Below General: Reports: Malaise, Weakness, Fatigue. Denies: Fever, Chills Pulmonary: Denies: Shortness of Breath, Wheezing Cardiovascular: Denies: Chest Pain, Palpitations, Dyspnea on Exertion Gastrointestinal: Denies: Abdominal Pain, Anorexia, Black Stool Genitourinary: Denies: Dysuria, Frequency, Burning Musculoskeletal: Denies: Neck Pain, Shoulder Pain, Arm Pain Skin: Denies: Cyanosis, Jaundice Psychiatric: Denies: Confusion, Depression, Mood Lability Neurological: Reports: Dizziness. Denies: Confusion, Headache, Numbness Exam - Exam Exam: See Below - Vital Signs Vital Signs: Last Vital Signs Temp 36.8 C 09/11/20 12:46 Pulse 80 09/11/20 17:21 Resp 16 09/11/20 17:21 BP 82/44 L 09/11/20 17:21 Pulse Ox 92 L 09/11/20 17:21 Weight: 43.998 kg - Exam Quality Assessment: Supplemental Oxygen General: Alert, Oriented, Cooperative, Mild Distress Neck: Supple, Trachea Midline Lungs: Clear to Auscultation, Normal Respiratory Effort Cardiovascular: Regular Rate, Regular Rhythm, Normal S1, Normal S2 GI/Abdominal Exam: Normal Bowel Sounds, Soft, Non-Tender - Patient Data Lab Results Last 24 hrs: Laboratory Results - last 24 hr 09/11/20 09/11/20 09/11/20 Range/Units 12:40 12:40 16:30 WBC 8.81 (4.0-11.0) K/uL RBC 4.23 L (4.30-5.90) M/uL Hgb 13.5 (12.0-16.0) g/dL Hct 39.9 (36.0-46.0) % MCV 94.3 (80.0-98.0) fL MCH 31.9 (27.0-32.0) pg MCHC 33.8 (31.0-37.0) g/dL RDW Std Deviation 48.1 (28.0-62.0) fl RDW Coeff of Wili 14 (11.0-15.0) % Plt Count 392 (150-400) K/uL MPV 8.50 (7.40-12.00) fL Neut % (Auto) 82.1 H (48.0-80.0) % Lymph % (Auto) 10.1 L (16.0-40.0) % [place] % (Auto) 7.3 (0.0-15.0) % Eos % (Auto) 0.2 (0.0-7.0) % Baso % (Auto) 0.3 (0.0-1.5) % Neut # (Auto) 7.2 H (1.4-5.7) K/uL Lymph # (Auto) 0.9 (0.6-2.4) K/uL [place] # (Auto) 0.6 (0.0-0.8) K/uL Eos # (Auto) 0.0 (0.0-0.7) K/uL Baso # (Auto) 0.0 (0.0-0.1) K/uL Nucleated RBC % 0.0 /100WBC Nucleated RBCs # 0 K/uL Sodium 133 L (136-145) mmol/L Potassium 3.3 L (3.5-5.1) mmol/L Chloride 94 L (98-107) mmol/L Carbon Dioxide 32.9 H (21.0-32.0) mmol/L BUN 8 (7.0-18.0) mg/dL Creatinine 0.6 (0.6-1.0) mg/dL Est Cr Clr Drug Dosing 66.66 mL/min Estimated GFR (MDRD) > 60.0 ml/min Glucose 104 (74-106) mg/dL Calcium 7.9 L (8.5-10.1) mg/dL Magnesium 3.1 H (1.8-2.4) mg/dL Troponin I < 0.050 (0.000-0.056) ng/mL SARS-CoV-2 RNA (CHARMAINE) NEGATIVE (NEGATIVE) Result Diagrams: 09/11/20 12:40 09/11/20 12:40 Sepsis Event Note - Evaluation Sepsis Screening Result: No Definite Risk - Focused Exam Vital Signs: Vital Signs Temp Pulse Resp BP Pulse Ox 09/11/20 17:21 80 16 82/44 L 92 L 09/11/20 15:27 69 16 90/56 L 98 09/11/20 13:25 82 16 77/46 L 93 L 09/11/20 12:46 36.8 C 78 18 85/54 L 96 - Problem List (1) Chronic low blood pressure SNOMED Code(s): 63476638 ICD Code: I95.89 - OTHER HYPOTENSION Status: Acute Current Visit: Yes (2) Hypotension SNOMED Code(s): 50089190 ICD Code: I95.9 - HYPOTENSION, UNSPECIFIED Status: Acute Current Visit: Y es (3) Pneumonia SNOMED Code(s): 010565954 ICD Code: J18.9 - PNEUMONIA, UNSPECIFIED ORGANISM Status: Acute Current Visit: Yes (4) Failure to thrive SNOMED Code(s): 33219302 ICD Code: OMD3540 - Status: Acute Current Visit: No (5) Lung cancer metastatic to brain SNOMED Code(s): 98755004 ICD Code: C34.90 - MALIGNANT NEOPLASM OF UNSP PART OF UNSP BRONCHUS OR LUNG; C79.31 - SECONDARY MALIGNANT NEOPLASM OF BRAIN Status: Acute Current Visit: No (6) TIA (transient ischemic attack) SNOMED Code(s): 713409323 ICD Code: G45.9 - TRANSIENT CEREBRAL ISCHEMIC ATTACK, UNSPECIFIED Status: Acute Current Visit: No Problem List Initiated/Reviewed/Updated: Yes Orders Last 24hrs: Active Orders 24 hr Category Date Time Status Admission Status [Patient Status] [ADT] Stat ADT 09/11/20 17:58 Active Ambulate [RC] ASDIRECTED Care 09/11/20 18:44 Active Antiembolic Devices [RC] PER UNIT ROUTINE Care 09/11/20 18:45 Active EKG Documentation Completion [RC] STAT Care 09/11/20 12:47 Active Oxygen Therapy [RC] PRN Care 09/11/20 18:44 Active RT Aerosol Therapy [RC] ASDIRECTED Care 09/11/20 18:46 Active VTE/DVT Education [RC] PER UNIT ROUTINE Care 09/11/20 18:44 Active Vital Signs [RC] Q4H Care 09/11/20 18:44 Active Regular Diet [DIET] Diet 09/11/20 Dinner Active BMP [BASIC METABOLIC PANEL,BMP] [CHEM] AM Lab 09/12/20 05:11 Ordered CBC WITH AUTO DIFF [HEME] AM Lab 09/12/20 05:11 Ordered UA W/DENISE RFLX IF INDICATED [URIN] Stat Lab 09/11/20 18:57 Received Albuterol/Ipratropium [DuoNeb 3.0-0.5 MG/3 ML] Med 09/11/20 18:44 Active 3 ml NEB Q4HRRT PRN Azithromycin [Zithromax] Med 09/12/20 09:00 Active 250 mg IV Q24H Azithromycin [Zithromax] 500 mg Med 09/11/20 18:00 Active Sodium Chloride 0.9% [Normal Saline (AdvBag)] 250 ml IV ONETIME Clindamycin Phos/Benzoyl Perox [Clinda-Benzoyl Perox 1- Med 09/11/20 21:00 Active 5% Pump] 1 applic TOP BID LORazepam [Ativan] Med 09/11/20 18:50 Active 1 mg PO TID PRN Lactated Ringers [Ringers, Lactated] 1,000 ml Med 09/11/20 18:45 Active IV ASDIRECTED Lubiprostone Med 09/11/20 21:00 Active 24 mcg PO BID Midodrine Med 09/11/20 22:00 Active 10 mg PO TID Ondansetron [Zofran] Med 09/11/20 18:44 Active 4 mg IVPUSH Q4H PRN Pantoprazole [ProTONIX IV] 40 mg Med 09/12/20 09:00 Active Sodium Chloride 0.9% [Normal Saline] 10 ml IV DAILY Pregabalin Med 09/11/20 22:00 Active 100 mg PO TID Sodium Chloride 0.9% [Normal Saline] 500 ml Med 09/11/20 13:00 Active IV .BOLUS Sodium Chloride 0.9% [Normal Saline] 500 ml Med 09/11/20 18:00 Active IV .BOLUS Umeclidinium Brm/Vilanterol Tr [Anoro Ellipta 62.5-25 Med 09/12/20 09:00 Active MCG] 1 inh IH DAILY cefTRIAXone [Rocephin] Med 09/12/20 09:00 Active 1 gm IVPUSH DAILY fluorouraciL [Fluorouracil] Med 09/11/20 21:00 Active 1 applic TOP BID oxyCODONE Med 09/11/20 18:50 Active 2.5 mg PO Q8H PRN risperiDONE [RisperiDAL] Med 09/11/20 21:00 Active 1 mg PO BID Sequential Compression Device [OM.PC] Per Unit Routine Oth 09/11/20 18:44 Ordered Medication Orders Albuterol/Ipratropium (Albuterol/Ipratropium 3.0-0.5 Mg/3 Ml Neb Soln) 3 ml NEB Q4HRRT PRN PRN Reason: Shortness Of Breath/wheezing Azithromycin (Azithromycin 500 Mg Vial) 250 mg IV Q24H ANNA MARIE Ceftriaxone Sodium (Ceftriaxone 1 Gm Vial) 1 gm IVPUSH DAILY ANNA MARIE Sodium Chloride (Normal Saline) 500 mls @ 500 mls/hr IV .BOLUS ANNA MARIE Last Admin: 09/11/20 12:58 Dose: 500 mls/hr Documented by: RENÉ Azithromycin 500 mg/ Sodium (Chloride) 250 mls @ 250 mls/hr IV ONETIME ANNA MARIE Sodium Chloride (Normal Saline) 500 mls @ 500 mls/hr IV .BOLUS ANNA MARIE Lactated Ringer's (Ringers, Lactated) 1,000 mls @ 125 mls/hr IV ASDIRECTED ANNA MARIE Pantoprazole Sodium 40 mg/ (Sodium Chloride) 10 mls @ 300 mls/hr IV DAILY ANNA MARIE Lorazepam (Lorazepam 1 Mg Tab) 1 mg PO TID PRN PRN Reason: Anxiety Midodrine (Midodrine 5 Mg Tab) 10 mg PO TID ANNA MARIE Non-Formulary Medication (Clindamycin Phos/Benzoyl Perox [Clinda-Benzoyl Perox 1-5% Pump]) 1 applic TOP BID ANNA MARIE Non-Formulary Medication (Fluorouracil [Fluorouracil]) 1 applic TOP BID ANNA MARIE Non-Formulary Medication (Lubiprostone) 24 mcg PO BID ANNA MARIE Non-Formulary Medication (Pregabalin) 100 mg PO TID ANNA MARIE Non-Formulary Medication (Umeclidinium Brm/Vilanterol Tr [Anoro Ellipta 62.5-25 Mcg]) 1 inh IH DAILY ANNA MARIE Ondansetron HCl (Ondansetron 4 Mg/2 Ml Sdv) 4 mg IVPUSH Q4H PRN PRN Reason: Nausea/Vomiting Oxycodone HCl (Oxycodone 5 Mg Tab) 2.5 mg PO Q8H PRN PRN Reason: Pain (moderate 4-6) Risperidone (Risperidone 1 Mg Tab) 1 mg PO BID ANNA MARIE Assessment/Plan Comment:: 65 y/o F admitted for acute over chronic hypotension and hypoxia cont IV fluids, cont midodrine cont oxygenation via NC cont IV antibiotics for CAP Encourage IS Regular diet SCD for dvt ppx Will consider PT eval for generalized weakness when BP is better
[2020-09-11] MEDS ORDERED: cefTRIAXone 1 GM in Premix Bag 1 BAG IV ONE (19:20)
--- NOTE | 2020-09-11 20:25 | EDM.PDOC ---
ED HPI GENERAL MEDICAL PROBLEM - General Chief Complaint: Cardiovascular Problem Stated Complaint: LOW BP Time Seen by Provider: 09/11/20 12:22 - History of Present Illness INITIAL COMMENTS - FREE TEXT/NARRATIVE: CHIEF COMPLAINT(S): Low blood pressure HISTORY OF PRESENT ILLNESS: This is a 65-year-old woman with metastatic lung cancer and history of hypotension who is on midodrine who comes to the emergency department with a chief complaint of low blood pressure. The patient states that she has a history of low blood pressure and the RN checked her blood pressure at home and is found to be low. She states that they called EMS. She currently denies any chest pain, abdominal pain, nausea vomiting, headache, blurry vision. She states that she did experience some bright lights in the front of her eyes earlier this morning but has not had any since. She states that she has been taking her medication as prescribed. Per EMS: The patient had systolics in the 80s with reported systolic of 60 at home. She states that she has had some shortness of breath and had chest pain 2 days ago which was located on the left side which he describes as a burning sensation rated 5 out of 10. She states that she currently does not have any chest pain. She denies any associated symptoms such as nausea, vomiting, syncope. She states that she has had similar pain to this in the past. She states that she is afraid that she h as Covid because she was notified that one of the RNs that was visiting her tested positive for Covid. She states that she is not on chemotherapy but is on immunotherapy. She states that she is having some lower back pain which she describes has been going on for quite some time. She denies any recent falls or any other injury. She denies any other symptoms. She denies any numbness or tingling of her lower extremities, bowel incontinence or urinary incontinence. REVIEW OF SYSTEMS: Constitutional: Denies fever, chills. Eyes: Denies eye pain Ears, Nose, Mouth, & Throat: Denies earache Cardiovascular: Positive for low blood pressure. Denies chest pain Respiratory: Positive for shortness of breath. Denies cough Gastrointestinal: Denies Nausea, vomiting, diarrhea,, bowel incontinence hematochezia. Genitourinary: Denies hematuria Skin:Denies a rash MSK: Positive for chronic lower back pain Neurological: Denies blurred vision, numbness, tingling, weakness Psychiatric: Denies depression PAST MEDICAL HISTORY: As per history of present illness and as reviewed below otherwise noncontributory. SURGICAL HISTORY: As per history of present illness and as reviewed below otherwise noncontributory. SOCIAL HISTORY: As per history of present illness and as reviewed below otherwise noncontributory. FAMILY HISTORY: As per history of present illness and as reviewed below otherwise noncontributory. EXAMINATION OF ORGAN SYSTEMS/BODY AREAS: Constitutional: Blood pressure was 85/54, heart rate 78, respiratory rate 18 with an oxygen saturation 96% on 3 L nasal cannula. Temperature 36.8 General: Cachectic appearing woman who is in no acute distress Psychiatric: Appropriate mood and affect. Eyes: No scleral icterus or conjunctival erythema pupils are equal round reactive to light. Extraocular movements intact. ENMT: Moist mucous membranes. No pharyngeal erythema Cardiovascular: Regular, rate, and rhythm. No gallops, murmurs, or rubs. Bilateral upper extremity pulses symmetric and intact. No peripheral edema. No JVD. Respiratory: Lungs clear to auscultation bilaterally. No wheezes, rales, or rhonchi. Patient speaking in full sentences. No increased work of breathing. Gastrointestinal: Soft, non-tender, non-distended. Normoactive bowel sounds Genitourinary: No suprapubic tenderness Musculoskeletal: Normal range of motion. Skin: No lesions or abrasions. Neurological: AOx4. CN grossly intact. Stregth 5/5 in bilateral upper and lower extremity. Sensation is intact bilaterally in upper and lower extremity. MEDICAL DECISION MAKING AND COURSE IN THE ED WITH INTERPRETATION/REVIEW OF DIAGNOSTIC STUDIES: This is a 65-year-old woman with a past medical history of metastatic lung cancer and history of hypotension on Midrin who comes to the emergency department with chronic back pain and hypotension. They reported a systolic of 60 however upon arrival and in EMS the patient systolic blood pressure was in the 80s. On review the patient's chart the patient does have a history of hypotension with systolics ranging from 60-90. It also appears that the patient does have a history of hypoxia requiring oxygen. It is unknown if the patient requires oxygen at home. On review of the patient's chart it appears that the patient has had hypotension in the past and there may be some contributing factors such as adrenal insufficiency. At this time given the patient appears well and has this history of hypotension and is afebrile I do not suspect sepsis. The patient is not on any beta-blockers and the patient is not tachycardic. We did obtain an EKG which did not reveal any acute signs of ischemia. We will obtain CBC, BMP, magnesium, troponin, and Covid, and chest x- ray. We will provide the patient with 500 cc of normal saline and provide the patient with her home dose of midodrine. Patient stated that she is in pain and usually takes oxycodone however given her hypotension we will hold off at this time. Time: 1225 Twelve-lead EKG interpreted by myself. Normal sinus rhythm at a rate of 81beats per minute. Normal axis. VT interval is 165ms. QRS duration is 91ms. ST segments are normal without elevations or depressions. There is a left anterior fascicular block no Q waves present. Possible right ventricular hypertrophy.. No changes demonstrated from prior EKG dated 06/19/2020. Interpretation: Sinus rhythm with left ventricular fascicular block. Laboratory: CBC is unremarkable. BMP reveals hyponatremia at 133, hypokalemia at 3.3, hypochloremia at 94, metabolic alkalosis with a bicarbonate of 32.9. Hypomagnesemia at 7.9 and hypermagnesemia 3.1. Troponin is negative. Covid is negative. The radiological images were viewed by myself along with reading the report from the radiologist. Chest x-ray reveals a new somewhat linear opacity at the lateral right base along the adjacent new mild pleural thickening with possible infiltrate. On reevaluation the patient's blood pressure had improved to the systolics of 90s. We will reevaluate the patient. We will start the patient on ceftriaxone and azithromycin given the new infiltrate. On reevaluation her blood pressure was fluctuating with systolics ranging from 70s to 85 however continued to mentate appropriately without any tachycardia. I did discuss with her at this time that I would like to provide her with hydrocortisone given her history of possible adrenal insufficiency. We will reevaluate after this. She was amenable to this plan. In addition we did replenish the patient's potassium by mouth. At this time I also performed a bedside cardiac ultrasound to evaluate for right heart strain versus pericardial effusion with tamponade given her lung cancer history. Bedside cardiac ultrasound Indication: Hypotension Bedside cardiac ultrasound was performed to myself. There was no evidence of pericardial effusion. EF appeared to be normal and parasternal long. There was no evidence of right heart strain. After hydrocortisone the patient's blood pressure continued to remain low however I do believe this is similar to prior. I do not believe the patient requires central line placement or pressor administration at this time given her history. Patient is mentating appropriately without fever or tachycardia therefore I do not not believe this is indicated. I did discuss with patient would like to admit her to the hospital. She was amenable to this plan. I contacted Dr. Mathews and she recommended urinalysis and admission to telemetry. I did discuss that the patient did not have any urinary complaints however we obtained a urinalysis and will be followed by hospitalist. DISPOSITION: Patient was admitted to the hospital in stable condition CONDITION: Fair PROCEDURES: None FINAL IMPRESSION(S)/DIAGNOSES: 1. Acute on chronic hypotension, unknown cause 2. Acute on chronic hypoxia likely secondary to possible community-acquired pneumonia versus lung cancer Eulogio Bernardo M.D. back pain Pain Score (Numeric/FACES): 5 - Related Data Allergies Allergy/AdvReac Type Severity Reaction Status Date / Time naproxen [From Aleve] Allergy Difficulty Verified 09/11/20 19:55 Breathing Penicillins Allergy Other Verified 09/11/20 19:55 Home Meds: Home Meds LORazepam 1 mg PO TID PRN 04/07/18 [History] Ondansetron [Zofran] 8 mg PO TID PRN 04/07/18 [History] Pregabalin [Lyrica] 100 mg PO TID 04/07/18 [History] Lubiprostone [Amitiza] 24 mcg PO BID 06/19/20 [History] Midodrine 10 mg PO TID 06/19/20 [History] Pantoprazole [ProTONIX] 40 mg PO DAILY 06/19/20 [History] Pembrolizumab [Keytruda] 200 mg IV .EVERY 3 WEEKS 06/19/20 [History] fluorouraciL [Fluorouracil] 1 applic TOP BID 06/19/20 [History] Albuterol Sulfate [Proair Hfa] 2 inh IH Q4H PRN 06/20/20 [History] Umeclidinium Brm/Vilanterol Tr [Anoro Ellipta 62.5-25 MCG] 1 inh IH DAILY 06/20/20 [History] risperiDONE [Risperdal] 1 mg PO BID 06/20/20 [History] oxyCODONE 2.5 mg PO Q8H PRN tablet 06/24/20 [Rx] Bumetanide 1 mg PO DAILY 09/11/20 [History] Clindamycin Phos/Benzoyl Perox [Clinda-Benzoyl Perox 1-5% Pump] 1 applic TOP BID 09/11/20 [History] Past Medical History HEENT History: Reports: Other (See Below) Other HEENT History: uses corrective glasses Respiratory History: Reports: COPD [employer] 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 Adrenal cancer - Infectious Disease History Infectious Disease History: Reports: Chicken Pox, Measles, Mumps - Past Surgical History Respiratory Surgical History: Reports: Lung Biopsies GI Surgical History: Reports: Cholecystectomy Female Surgical History: Reports: Tubal Ligation Other Endocrine Surgeries/Procedures: Adrenal Cancer Oncologic Surgical History: Reports: None Social & Family History - Family History Family Medical History: No Pertinent Family History - Tobacco Use Packs/Tins Daily: 1 - Caffeine Use Caffeine Use: Reports: None - Recreational Drug Use Recreational Drug Use: No ED ROS GENERAL - Review of Systems Review Of Systems: See Below ED EXAM, GENERAL - Physical Exam Exam: See Below Course - Vital Signs Last Recorded V/S: Last Vital Signs Temp 36.8 C 09/11/20 12:46 Pulse 60 09/11/20 19:38 Resp 16 09/11/20 19:38 BP 76/45 L 09/11/20 19:38 Pulse Ox 93 L 09/11/20 19:38 - Orders/Labs/Meds Orders: Active Orders 24 hr Category Date Time Status EKG Documentation Completion [RC] STAT Care 09/11/20 12:47 Active Azithromycin [Zithromax] 500 mg Med 09/11/20 18:00 Active Sodium Chloride 0.9% [Normal Saline (AdvBag)] 250 ml IV ONETIME Sodium Chloride 0.9% [Normal Saline] 500 ml Med 09/11/20 13:00 Active IV .BOLUS Medication Orders Albuterol/Ipratropium (Albuterol/Ipratropium 3.0-0.5 Mg/3 Ml Neb Soln) 3 ml NEB Q4HRRT PRN PRN Reason: Shortness Of Breath/wheezing Azithromycin (Azithromycin 500 Mg Vial) 250 mg IV Q24H ANNA MARIE Ceftriaxone Sodium (Ceftriaxone 1 Gm Vial) 1 gm IVPUSH DAILY ANNA MARIE Sodium Chloride (Normal Saline) 500 mls @ 500 mls/hr IV .BOLUS ANNA MARIE Last Admin: 09/11/20 12:58 Dose: 500 mls/hr Documented by: RENÉ Azithromycin 500 mg/ Sodium (Chloride) 250 mls @ 250 mls/hr IV ONETIME ANNA MARIE Sodium Chloride (Normal Saline) 500 mls @ 500 mls/hr IV .BOLUS ANNA MARIE Lactated Ringer's (Ringers, Lactated) 1,000 mls @ 125 mls/hr IV ASDIRECTED ANNA MARIE Pantoprazole Sodium 40 mg/ (Sodium Chloride) 10 mls @ 300 mls/hr IV DAILY ANNA MARIE Lorazepam (Lorazepam 1 Mg Tab) 1 mg PO TID PRN PRN Reason: Anxiety Midodrine (Midodrine 5 Mg Tab) 10 mg PO TID ANNA MARIE Non-Formulary Medication (Clindamycin Phos/Benzoyl Perox [Clinda-Benzoyl Perox 1-5% Pump]) 1 applic TOP BID ANNA MARIE Non-Formulary Medication (Fluorouracil [Fluorouracil]) 1 applic TOP BID [facility] Non-Formulary Medication (Lubiprostone) 24 mcg PO BID ANNA MARIE Non-Formulary Medication (Pregabalin) 100 mg PO TID [facility] Non-Formulary Medication (Umeclidinium Brm/Vilanterol Tr [Anoro Ellipta 62.5-25 Mcg]) 1 inh IH DAILY ANNA MARIE Ondansetron HCl (Ondansetron 4 Mg/2 Ml Sdv) 4 mg IVPUSH Q4H PRN PRN Reason: Nausea/Vomiting Oxycodone HCl (Oxycodone 5 Mg Tab) 2.5 mg PO Q8H PRN PRN Reason: Pain (moderate 4-6) Risperidone (Risperidone 1 Mg Tab) 1 mg PO BID [facility] Labs: Laboratory Tests 09/11/20 09/11/20 09/11/20 Range/Units 12:40 12:40 16:30 WBC 8.81 (4.0-11.0) K/uL RBC 4.23 L (4.30-5.90) M/uL Hgb 13.5 (12.0-16.0) g/dL Hct 39.9 (36.0-46.0) % MCV 94.3 (80.0-98.0) fL MCH 31.9 (27.0-32.0) pg MCHC 33.8 (31.0-37.0) g/dL RDW Std Deviation 48.1 (28.0-62.0) fl RDW Coeff of Wili 14 (11.0-15.0) % Plt Count 392 (150-400) K/uL MPV 8.50 (7.40-12.00) fL Neut % (Auto) 82.1 H (48.0-80.0) % Lymph % (Auto) 10.1 L (16.0-40.0) % [place] % (Auto) 7.3 (0.0-15.0) % Eos % (Auto) 0.2 (0.0-7.0) % Baso % (Auto) 0.3 (0.0-1.5) % Neut # (Auto) 7.2 H (1.4-5.7) K/uL Lymph # (Auto) 0.9 (0.6-2.4) K/uL [place] # (Auto) 0.6 (0.0-0.8) K/uL Eos # (Auto) 0.0 (0.0-0.7) K/uL Baso # (Auto) 0.0 (0.0-0.1) K/uL Nucleated RBC % 0.0 /100WBC Nucleated RBCs # 0 K/uL Sodium 133 L (136-145) mmol/L Potassium 3.3 L (3.5-5.1) mmol/L Chloride 94 L (98-107) mmol/L Carbon Dioxide 32.9 H (21.0-32.0) mmol/L BUN 8 (7.0-18.0) mg/dL Creatinine 0.6 (0.6-1.0) mg/dL Est Cr Clr Drug Dosing 66.66 mL/min Estimated GFR (MDRD) > 60.0 ml/min Glucose 104 (74-106) mg/dL Calcium 7.9 L (8.5-10.1) mg/dL Magnesium 3.1 H (1.8-2.4) mg/dL Troponin I < 0.050 (0.000-0.056) ng/mL SARS-CoV-2 RNA (CHARMAINE) NEGATIVE (NEGATIVE) Meds: Medications Generic Name Dose Route Start Last Admin Trade Name Freq PRN Reason Stop Dose Admin Albuterol/Ipratropium 3 ml 09/11/20 18:44 Albuterol/Ipratropium 3.0-0.5 Mg/3 Ml Neb Soln NEB Q4HRRT PRN Shortness Of Breath/wheezing Azithromycin 250 mg 09/12/20 09:00 Azithromycin 500 Mg Vial IV Q24H ANNA MARIE Ceftriaxone Sodium 1 gm 09/12/20 09:00 Ceftriaxone 1 Gm Vial IVPUSH DAILY ANNA MARIE Sodium Chloride 500 mls @ 500 mls/hr 09/11/20 13:00 09/11/20 12:58 Normal Saline IV 500 mls/hr .BOLUS ANNA MARIE Administration Azithromycin 500 mg/ Sodium 250 mls @ 250 mls/hr 09/11/20 18:00 Chloride IV ONETIME ANNA MARIE Sodium Chloride 500 mls @ 500 mls/hr 09/11/20 18:00 Normal Saline IV .BOLUS ANNA MARIE Lactated Ringer's 1,000 mls @ 125 mls/hr 09/11/20 18:45 Ringers, Lactated IV ASDIRECTED ANNA MARIE Pantoprazole Sodium 40 mg/ 10 mls @ 300 mls/hr 09/12/20 09:00 Sodium Chloride IV DAILY ANNA MARIE Lorazepam 1 mg 09/11/20 18:50 Lorazepam 1 Mg Tab PO TID PRN Anxiety Midodrine 10 mg 09/11/20 22:00 Midodrine 5 Mg Tab PO TID ANNA MARIE Non-Formulary Medication 1 applic 09/11/20 21:00 Clindamycin Phos/Benzoyl Perox [Clinda-Benzoyl Perox 1-5% Pump] TOP BID ANNA MARIE Non-Formulary Medication 1 applic 09/11/20 21:00 Fluorouracil [Fluorouracil] TOP BID ANNA MARIE Non-Formulary Medication 24 mcg 09/11/20 21:00 Lubiprostone PO BID ANNA MARIE Non-Formulary Medication 100 mg 09/11/20 22:00 Pregabalin PO TID ANNA MARIE Non-Formulary Medication 1 inh 09/12/20 09:00 Umeclidinium Brm/Vilanterol Tr [Anoro Ellipta 62.5-25 Mcg] IH DAILY ANNA MARIE Ondansetron HCl 4 mg 09/11/20 18:44 Ondansetron 4 Mg/2 Ml Sdv IVPUSH Q4H PRN Nausea/Vomiting Oxycodone HCl 2.5 mg 09/11/20 18:50 Oxycodone 5 Mg Tab PO Q8H PRN Pain (moderate 4-6) Risperidone 1 mg 09/11/20 21:00 Risperidone 1 Mg Tab PO BID ANNA MARIE Discontinued Medications Generic Name Dose Route Start Last Admin Trade Name Freq PRN Reason Stop Dose Admin Ceftriaxone Sodium 1 gm 09/11/20 17:56 09/11/20 19:21 Ceftriaxone 1 Gm Vial IVPUSH 09/11/20 17:57 Not Given ONETIME ONE Hydrocortisone Sodium Succinate 100 mg 09/11/20 16:00 09/11/20 16:22 Hydrocortisone Sodium Succinate 100 Mg/2 Ml Sdv IVPUSH 09/11/20 16:01 100 mg ONETIME ONE Administration Ceftriaxone Sodium/Dextrose 1 50 mls @ 100 mls/hr 09/11/20 19:20 09/11/20 19:25 gm/ Premix IV 09/11/20 19:49 100 mls/hr ONETIME ONE Administration Midodrine 5 mg 09/11/20 12:49 09/11/20 12:57 Midodrine 5 Mg Tab PO 09/11/20 12:50 5 mg ONETIME STA Administration Morphine Sulfate 1 mg 09/11/20 18:44 Morphine 10 Mg/Ml Syringe IVPUSH 09/12/20 18:45 Q3H PRN Pain (severe 7-10) Potassium Chloride 40 meq 09/11/20 14:55 09/11/20 15:06 Potassium Chloride 10% 20 Meq/15 Ml Soln 30 Ml Ud Cup PO 09/11/20 14:56 40 meq ONETIME ONE Administration Departure - Departure Time of Disposition: 17:58 Disposition: Admitted As Inpatient 68 Condition: Fair Clinical Impression: Pneumonia, Hypotension - Discharge Information Sepsis Event Note (ED) - Evaluation Sepsis Screening Result: No Definite Risk - Focused Exam Vital Signs: Vital Signs Temp Pulse Resp BP Pulse Ox 09/11/20 17:21 80 16 82/44 L 92 L 09/11/20 15:27 69 16 90/56 L 98 09/11/20 13:25 82 16 77/46 L 93 L 09/11/20 12:46 36.8 C 78 18 85/54 L 96 - My Orders Last 24 Hours: My Active Orders 09/11/20 12:47 EKG Documentation Completion [RC] STAT 09/11/20 13:00 Sodium Chloride 0.9% [Normal Saline] 500 ml IV .BOLUS 09/11/20 18:00 Azithromycin [Zithromax] 500 mg Sodium Chloride 0.9% [Normal Saline (AdvBag)] 250 ml IV ONETIME - Assessment/Plan Last 24 Hours: My Active Orders 09/11/20 12:47 EKG Documentation Completion [RC] STAT 09/11/20 13:00 Sodium Chloride 0.9% [Normal Saline] 500 ml IV .BOLUS 09/11/20 18:00 Azithromycin [Zithromax] 500 mg Sodium Chloride 0.9% [Normal Saline (AdvBag)] 250 ml IV ONETIME
[2020-09-11] MEDS: risperiDONE 1 MG Tab PO SCH (20:38)
[2020-09-11] MEDS: oxyCODONE 5 MG Tab PO PRN (20:45)
[2020-09-11] MEDS ORDERED: CLINDAMYCIN PHOS TOP SCH (21:00)
[2020-09-11] MEDS ORDERED: BENZOYL PEROX TOP SCH (21:00)
[2020-09-11] MEDS ORDERED: LUBIPROSTONE 24 MCG PO SCH (21:00)
[2020-09-11] MEDS ORDERED: [UNRECOGNIZED DRUG - OTHER] TOP SCH (21:00)
[2020-09-11] MEDS ORDERED: Non-Formulary Medication 1 Each (Fluorouracil [Fluorouracil] 30 GM Cream..G.) TOP SCH (21:00)
[2020-09-11] MEDS: PREGABALIN 100 MG PO SCH (21:56)
[2020-09-11] MEDS: Lactated Ringers 1,000 ML IV SCH (22:14)
[2020-09-11] MEDS: Midodrine 5 MG Tab PO SCH (22:17)
[2020-09-11] MEDS: LORazepam 1 MG Tab PO PRN (23:53)
[2020-09-12] MEDS: Midodrine 5 MG Tab PO SCH ×3 (05:15→21:05)
[2020-09-12] MEDS: PREGABALIN 100 MG PO SCH (05:16)
[2020-09-12 05:44] LABS: BLOOD UREA NITROGEN,BUN 9 mg/dL (7.0-18.0); CARBON DIOXIDE,CO2 33.7 mmol/L (21.0-32.0); CHLORIDE,CL 98 mmol/L (98-107); GLUCOSE RANDOM 220 mg/dL (74-106); POTASSIUM,K 3.9 mmol/L (3.5-5.1); SODIUM,NA 133 mmol/L (136-145)
[2020-09-12] MEDS: Lactated Ringers 1,000 ML IV SCH ×2 (07:27→19:50)
--- NOTE | 2020-09-12 08:54 | PCM.PN ---
- General Info Date of Service: 09/12/20 Admission Dx/Problem (Free Text): Admission Diagnosis/Problem Admission Diagnosis/Problem Hypotension Functional Status: Reports: Tolerating Diet, Urinating - Review of Systems General: Reports: Weakness, Fatigue, Malaise Pulmonary: Denies: Shortness of Breath, Pleuritic Chest Pain Cardiovascular: Reports: Chest Pain. Denies: Palpitations, Dyspnea on Exertion Gastrointestinal: Denies: Abdominal Pain, Constipation, Decreased Appetite Genitourinary: Denies: Dysuria, Frequency, Burning Musculoskeletal: Denies: Neck Pain, Shoulder Pain Skin: Denies: Cyanosis, Jaundice - Patient Data Vitals - Most Recent: Last Vital Signs Temp 36.5 C 09/12/20 08:00 Pulse 60 09/12/20 08:00 Resp 21 H 09/12/20 08:00 BP 78/49 L 09/12/20 08:00 Pulse Ox 97 09/12/20 08:00 Weight - Most Recent: 49.442 kg I&O - Last 24 Hours: Intake & Output 09/11/20 09/12/20 09/12/20 22:59 06:59 14:59 Intake Total 2442 Output Total 50 Balance 2392 Lab Results Last 24 Hours: Laboratory Results - last 24 hr 09/11/20 09/11/20 09/11/20 Range/Units 12:40 12:40 16:30 WBC 8.81 (4.0-11.0) K/uL RBC 4.23 L (4.30-5.90) M/uL Hgb 13.5 (12.0-16.0) g/dL Hct 39.9 (36.0-46.0) % MCV 94.3 (80.0-98.0) fL MCH 31.9 (27.0-32.0) pg MCHC 33.8 (31.0-37.0) g/dL RDW Std Deviation 48.1 (28.0-62.0) fl RDW Coeff of Wili 14 (11.0-15.0) % Plt Count 392 (150-400) K/uL MPV 8.50 (7.40-12.00) fL Neut % (Auto) 82.1 H (48.0-80.0) % Lymph % (Auto) 10.1 L (16.0-40.0) % Lamb % (Auto) 7.3 (0.0-15.0) % Eos % (Auto) 0.2 (0.0-7.0) % Baso % (Auto) 0.3 (0.0-1.5) % Neut # (Auto) 7.2 H (1.4-5.7) K/uL Lymph # (Auto) 0.9 (0.6-2.4) K/uL Lamb # (Auto) 0.6 (0.0-0.8) K/uL Eos # (Auto) 0.0 (0.0-0.7) K/uL Baso # (Auto) 0.0 (0.0-0.1) K/uL Nucleated RBC % 0.0 /100WBC Nucleated RBCs # 0 K/uL Sodium 133 L (136-145) mmol/L Potassium 3.3 L (3.5-5.1) mmol/L Chloride 94 L (98-107) mmol/L Carbon Dioxide 32.9 H (21.0-32.0) mmol/L BUN 8 (7.0-18.0) mg/dL Creatinine 0.6 (0.6-1.0) mg/dL Est Cr Clr Drug Dosing 66.66 mL/min Estimated GFR (MDRD) > 60.0 ml/min Glucose 104 (74-106) mg/dL Calcium 7.9 L (8.5-10.1) mg/dL Magnesium 3.1 H (1.8-2.4) mg/dL Troponin I < 0.050 (0.000-0.056) ng/mL Urine Color Urine Appearance Urine pH (5.0-8.0) Ur Specific [place] (1.001-1.035) Urine Protein (NEGATIVE) mg/dL Urine Glucose (UA) (NEGATIVE) mg/dL Urine Ketones (NEGATIVE) mg/dL Urine Occult Blood (NEGATIVE) Urine Nitrite (NEGATIVE) Urine Bilirubin (NEGATIVE) Urine Urobilinogen (<2.0) EU/dL Ur Leukocyte Esterase (NEGATIVE) Urine RBC (0-2/HPF) Urine WBC (0-5/HPF) Ur Epithelial Cells (NONE-FEW) Urine Bacteria (NEGATIVE) SARS-CoV-2 RNA (CHARMAINE) NEGATIVE (NEGATIVE) 03/29/21 03/30/21 03/30/21 Range/Units 18:57 04:55 04:55 WBC 9.72 (4.0-11.0) K/uL RBC 3.95 L (4.30-5.90) M/uL Hgb 12.3 (12.0-16.0) g/dL Hct 37.4 (36.0-46.0) % MCV 94.7 (80.0-98.0) fL MCH 31.1 (27.0-32.0) pg MCHC 32.9 (31.0-37.0) g/dL RDW Std Deviation 48.2 (28.0-62.0) fl RDW Coeff of Wili 14 (11.0-15.0) % Plt Count 438 H (150-400) K/uL MPV 8.70 (7.40-12.00) fL Neut % (Auto) 90.9 H (48.0-80.0) % Lymph % (Auto) 6.0 L (16.0-40.0) % Lamb % (Auto) 3.1 (0.0-15.0) % Eos % (Auto) 0.0 (0.0-7.0) % Baso % (Auto) 0.0 (0.0-1.5) % Neut # (Auto) 8.8 H (1.4-5.7) K/uL Lymph # (Auto) 0.6 (0.6-2.4) K/uL Lamb # (Auto) 0.3 (0.0-0.8) K/uL Eos # (Auto) 0.0 (0.0-0.7) K/uL Baso # (Auto) 0.0 (0.0-0.1) K/uL Nucleated RBC % 0.0 /100WBC Nucleated RBCs # 0 K/uL Sodium 133 L (136-145) mmol/L Potassium 3.9 (3.5-5.1) mmol/L Chloride 98 (98-107) mmol/L Carbon Dioxide 33.7 H (21.0-32.0) mmol/L BUN 9 (7.0-18.0) mg/dL Creatinine 0.6 (0.6-1.0) mg/dL Est Cr Clr Drug Dosing 74.91 mL/min Estimated GFR (MDRD) > 60.0 ml/min Glucose 220 H (74-106) mg/dL Calcium 8.0 L (8.5-10.1) mg/dL Magnesium (1.8-2.4) mg/dL Troponin I (0.000-0.056) ng/mL Urine Color YELLOW Urine Appearance CLOUDY Urine pH 6.0 (5.0-8.0) Ur Specific [place] 1.025 (1.001-1.035) Urine Protein NEGATIVE (NEGATIVE) mg/dL Urine Glucose (UA) NEGATIVE (NEGATIVE) mg/dL Urine Ketones NEGATIVE (NEGATIVE) mg/dL Urine Occult Blood NEGATIVE (NEGATIVE) Urine Nitrite POSITIVE H (NEGATIVE) Urine Bilirubin NEGATIVE (NEGATIVE) Urine Urobilinogen 2.0 H (<2.0) EU/dL Ur Leukocyte Esterase SMALL H (NEGATIVE) Urine RBC 0-2 (0-2/HPF) Urine WBC 30-40 (0-5/HPF) Ur Epithelial Cells FEW (NONE-FEW) Urine Bacteria 4+ H (NEGATIVE) SARS-CoV-2 RNA (CHARMAINE) (NEGATIVE) Med Orders - Current: Current Medications Albuterol/Ipratropium (Albuterol/Ipratropium 3.0-0.5 Mg/3 Ml Neb Soln) 3 ml NEB Q4HRRT PRN PRN Reason: Shortness Of Breath/wheezing Azithromycin (Azithromycin 500 Mg Vial) 250 mg IV Q24H ANNA MARIE Sodium Chloride (Normal Saline) 500 mls @ 500 mls/hr IV .BOLUS ANNA MARIE Last Admin: 09/11/20 12:58 Dose: 500 mls/hr Documented by: Sodium Chloride (Normal Saline) 500 mls @ 500 mls/hr IV .BOLUS ANNA MARIE Last Admin: 09/11/20 20:30 Dose: 500 mls/hr Documented by: Lactated Ringer's (Ringers, Lactated) 1,000 mls @ 125 mls/hr IV ASDIRECTED ANNA MARIE Last Admin: 09/12/20 07:27 Dose: 125 mls/hr Documented by: Pantoprazole Sodium 40 mg/ (Sodium Chloride) 10 mls @ 300 mls/hr IV DAILY ANNA MARIE Ceftriaxone Sodium/Dextrose 1 (gm/ Premix) 50 mls @ 100 mls/hr IV Q24H ANNA MARIE Lorazepam (Lorazepam 1 Mg Tab) 1 mg PO TID PRN PRN Reason: Anxiety Last Admin: 09/11/20 23:53 Dose: 1 mg Documented by: Midodrine (Midodrine 5 Mg Tab) 10 mg PO TID COUNTS INCLUDE 234 BEDS AT THE [facility] Last Admin: 09/12/20 05:15 Dose: 10 mg Documented by: Ondansetron HCl (Ondansetron 4 Mg/2 Ml Sdv) 4 mg IVPUSH Q4H PRN PRN Reason: Nausea/Vomiting Last Admin: 09/11/20 23:03 Dose: 4 mg Documented by: Oxycodone HCl (Oxycodone 5 Mg Tab) 2.5 mg PO Q8H PRN PRN Reason: Pain (moderate 4-6) Last Admin: 09/11/20 20:45 Dose: 2.5 mg Documented by: Umeclidinium Brm/Vilanterol Tr [Anoro Ellipta 62.5-25 Mcg ] 1 each INH DAILY COUNTS INCLUDE 234 BEDS AT THE [facility] Clindamycin Phos/Benzoyl Perox [ Clinda-Benzoyl Perox 1-5% Pump] 1 each TOP BID ANNA MARIE Fluorouracil 30 Gm (Cream) 1 each TOP BID ANNA MARIE Lubiprostone [ (Amitiza] 24 Mcg) 1 each PO BID ANNA MARIE Risperidone (Risperidone 1 Mg Tab) 1 mg PO BID COUNTS INCLUDE 234 BEDS AT THE [facility] Last Admin: 09/11/20 20:38 Dose: 1 mg Documented by: Discontinued Medications Ceftriaxone Sodium (Ceftriaxone 1 Gm Vial) 1 gm IVPUSH ONETIME ONE Stop: 09/11/20 17:57 Last Admin: 09/11/20 19:21 Dose: Not Given Documented by: Hydrocortisone Sodium Succinate (Hydrocortisone Sodium Succinate 100 Mg/2 Ml Sdv) 100 mg IVPUSH ONETIME ONE Stop: 09/11/20 16:01 Last Admin: 09/11/20 16:22 Dose: 100 mg Documented by: Azithromycin 500 mg/ Sodium (Chloride) 250 mls @ 250 mls/hr IV ONETIME COUNTS INCLUDE 234 BEDS AT THE [facility] Last Admin: 09/11/20 22:20 Dose: 250 mls/hr Documented by: Ceftriaxone Sodium/Dextrose 1 (gm/ Premix) 50 mls @ 100 mls/hr IV ONETIME ONE Stop: 09/11/20 19:49 Last Admin: 09/11/20 19:25 Dose: 100 mls/hr Documented by: Midodrine (Midodrine 5 Mg Tab) 5 mg PO ONETIME STA Stop: 09/11/20 12:50 Last Admin: 09/11/20 12:57 Dose: 5 mg Documented by: Morphine Sulfate (Morphine 10 Mg/Ml Syringe) 1 mg IVPUSH Q3H PRN PRN Reason: Pain (severe 7-10) Stop: 09/12/20 18:45 Non-Formulary Medication (Clindamycin Phos/Benzoyl Perox [Clinda-Benzoyl Perox 1-5% Pump]) 1 applic TOP BID COUNTS INCLUDE 234 BEDS AT THE [facility] Last Admin: 09/11/20 21:50 Dose: Not Given Documented by: Non-Formulary Medication (Fluorouracil [Fluorouracil]) 1 applic TOP BID COUNTS INCLUDE 234 BEDS AT THE [facility] Last Admin: 09/11/20 23:41 Dose: 1 applic Documented by: Non-Formulary Medication (Lubiprostone) 24 mcg PO BID COUNTS INCLUDE 234 BEDS AT THE [facility] Last Admin: 09/11/20 21:51 Dose: Not Given Documented by: Non-Formulary Medication (Pregabalin) 100 mg PO TID COUNTS INCLUDE 234 BEDS AT THE [facility] Last Admin: 09/12/20 05:16 Dose: Not Given Documented by: Potassium Chloride (Potassium Chloride 10% 20 Meq/15 Ml Soln 30 Ml Ud Cup) 40 meq PO ONETIME ONE Stop: 09/11/20 14:56 Last Admin: 09/11/20 15:06 Dose: 40 meq Documented by: - Exam General: Alert, Oriented, No Acute Distress Lungs: Clear to Auscultation, Normal Respiratory Effort Cardiovascular: Regular Rate, Regular Rhythm GI/Abdominal Exam: Normal Bowel Sounds, Soft, Non-Tender Extremities: Normal Inspection, Normal Range of Motion - Patient Data Lab Results Last 24 hrs: Laboratory Results - last 24 hr 09/11/20 09/11/20 09/11/20 Range/Units 12:40 12:40 16:30 WBC 8.81 (4.0-11.0) K/uL RBC 4.23 L (4.30-5.90) M/uL Hgb 13.5 (12.0-16.0) g/dL Hct 39.9 (36.0-46.0) % MCV 94.3 (80.0-98.0) fL MCH 31.9 (27.0-32.0) pg MCHC 33.8 (31.0-37.0) g/dL RDW Std Deviation 48.1 (28.0-62.0) fl RDW Coeff of Wili 14 (11.0-15.0) % Plt Count 392 (150-400) K/uL MPV 8.50 (7.40-12.00) fL Neut % (Auto) 82.1 H (48.0-80.0) % Lymph % (Auto) 10.1 L (16.0-40.0) % Lamb % (Auto) 7.3 (0.0-15.0) % Eos % (Auto) 0.2 (0.0-7.0) % Baso % (Auto) 0.3 (0.0-1.5) % Neut # (Auto) 7.2 H (1.4-5.7) K/uL Lymph # (Auto) 0.9 (0.6-2.4) K/uL Lamb # (Auto) 0.6 (0.0-0.8) K/uL Eos # (Auto) 0.0 (0.0-0.7) K/uL Baso # (Auto) 0.0 (0.0-0.1) K/uL Nucleated RBC % 0.0 /100WBC Nucleated RBCs # 0 K/uL Sodium 133 L (136-145) mmol/L Potassium 3.3 L (3.5-5.1) mmol/L Chloride 94 L (98-107) mmol/L Carbon Dioxide 32.9 H (21.0-32.0) mmol/L BUN 8 (7.0-18.0) mg/dL Creatinine 0.6 (0.6-1.0) mg/dL Est Cr Clr Drug Dosing 66.66 mL/min Estimated GFR (MDRD) > 60.0 ml/min Glucose 104 (74-106) mg/dL Calcium 7.9 L (8.5-10.1) mg/dL Magnesium 3.1 H (1.8-2.4) mg/dL Troponin I < 0.050 (0.000-0.056) ng/mL Urine Color Urine Appearance Urine pH (5.0-8.0) Ur Specific Dillon (1.001-1.035) Urine Protein (NEGATIVE) mg/dL Urine Glucose (UA) (NEGATIVE) mg/dL Urine Ketones (NEGATIVE) mg/dL Urine Occult Blood (NEGATIVE) Urine Nitrite (NEGATIVE) Urine Bilirubin (NEGATIVE) Urine Urobilinogen (<2.0) EU/dL Ur Leukocyte Esterase (NEGATIVE) Urine RBC (0-2/HPF) Urine WBC (0-5/HPF) Ur Epithelial Cells (NONE-FEW) Urine Bacteria (NEGATIVE) SARS-CoV-2 RNA (CHARMAINE) NEGATIVE (NEGATIVE) 09/11/20 09/12/20 09/12/20 Range/Units 18:57 04:55 04:55 WBC 9.72 (4.0-11.0) K/uL RBC 3.95 L (4.30-5.90) M/uL Hgb 12.3 (12.0-16.0) g/dL Hct 37.4 (36.0-46.0) % MCV 94.7 (80.0-98.0) fL MCH 31.1 (27.0-32.0) pg MCHC 32.9 (31.0-37.0) g/dL RDW Std Deviation 48.2 (28.0-62.0) fl RDW Coeff of Wili 14 (11.0-15.0) % Plt Count 438 H (150-400) K/uL MPV 8.70 (7.40-12.00) fL Neut % (Auto) 90.9 H (48.0-80.0) % Lymph % (Auto) 6.0 L (16.0-40.0) % Lamb % (Auto) 3.1 (0.0-15.0) % Eos % (Auto) 0.0 (0.0-7.0) % Baso % (Auto) 0.0 (0.0-1.5) % Neut # (Auto) 8.8 H (1.4-5.7) K/uL Lymph # (Auto) 0.6 (0.6-2.4) K/uL Lamb # (Auto) 0.3 (0.0-0.8) K/uL Eos # (Auto) 0.0 (0.0-0.7) K/uL Baso # (Auto) 0.0 (0.0-0.1) K/uL Nucleated RBC % 0.0 /100WBC Nucleated RBCs # 0 K/uL Sodium 133 L (136-145) mmol/L Potassium 3.9 (3.5-5.1) mmol/L Chloride 98 (98-107) mmol/L Carbon Dioxide 33.7 H (21.0-32.0) mmol/L BUN 9 (7.0-18.0) mg/dL Creatinine 0.6 (0.6-1.0) mg/dL Est Cr Clr Drug Dosing 74.91 mL/min Estimated GFR (MDRD) > 60.0 ml/min Glucose 220 H (74-106) mg/dL Calcium 8.0 L (8.5-10.1) mg/dL Magnesium (1.8-2.4) mg/dL Troponin I (0.000-0.056) ng/mL Urine Color YELLOW Urine Appearance CLOUDY Urine pH 6.0 (5.0-8.0) Ur Specific Dillon 1.025 (1.001-1.035) Urine Protein NEGATIVE (NEGATIVE) mg/dL Urine Glucose (UA) NEGATIVE (NEGATIVE) mg/dL Urine Ketones NEGATIVE (NEGATIVE) mg/dL Urine Occult Blood NEGATIVE (NEGATIVE) Urine Nitrite POSITIVE H (NEGATIVE) Urine Bilirubin NEGATIVE (NEGATIVE) Urine Urobilinogen 2.0 H (<2.0) EU/dL Ur Leukocyte Esterase SMALL H (NEGATIVE) Urine RBC 0-2 (0-2/HPF) Urine WBC 30-40 (0-5/HPF) Ur Epithelial Cells FEW (NONE-FEW) Urine Bacteria 4+ H (NEGATIVE) SARS-CoV-2 RNA (CHARMAINE) (NEGATIVE) Result Diagrams: 09/12/20 04:55 09/12/20 04:55 Sepsis Event Note - Evaluation Sepsis Screening Result: No Definite Risk - Focused Exam Vital Signs: Vital Signs Temp Pulse Resp BP Pulse Ox 09/12/20 08:00 36.5 C 60 21 H 78/49 L 97 09/12/20 04:36 35.9 C L 55 L 16 81/41 L 95 09/12/20 00:14 36.1 C 63 14 84/53 L 94 L - Problem List & Annotations (1) Chronic low blood pressure SNOMED Code(s): 55355503 Code(s): I95.89 - OTHER HYPOTENSION Status: Acute Current Visit: Yes (2) Hypotension SNOMED Code(s): 59507273 Code(s): I95.9 - HYPOTENSION, UNSPECIFIED Status: Acute Current Visit: Yes (3) Pneumonia SNOMED Code(s): 984197631 Code(s): J18.9 - PNEUMONIA, UNSPECIFIED ORGANISM Status: Acute Current Visit: Yes (4) Failure to thrive SNOMED Code(s): 36224542 Code(s): UET6036 - Status: Acute Current Visit: No (5) Lung cancer metastatic to brain SNOMED Code(s): 28167295 Code(s): C34.90 - MALIGNANT NEOPLASM OF UNSP PART OF UNSP BRONCHUS OR LUNG; C79.31 - SECONDARY MALIGNANT NEOPLASM OF BRAIN Status: Acute Current Visit: No (6) TIA (transient ischemic attack) SNOMED Code(s): 140559766 Code(s): G45.9 - TRANSIENT CEREBRAL ISCHEMIC ATTACK, UNSPECIFIED Status: Acute Current Visit: No - Problem List Review Problem List Initiated/Reviewed/Updated: Yes - My Orders Last 24 Hours: My Active Orders 09/11/20 Dinner Regular Diet [DIET] 09/11/20 18:44 Ambulate [RC] ASDIRECTED Oxygen Therapy [RC] PRN VTE/DVT Education [RC] PER UNIT ROUTINE Vital Signs [RC] Q4H Albuterol/Ipratropium [DuoNeb 3.0-0.5 MG/3 ML] 3 ml NEB Q4HRRT PRN Ondansetron [Zofran] 4 mg IVPUSH Q4H PRN Sequential Compression Device [OM.PC] Per Unit Routine 09/11/20 18:45 Antiembolic Devices [RC] PER UNIT ROUTINE Lactated Ringers [Ringers, Lactated] 1,000 ml IV ASDIRECTED 09/11/20 18:46 RT Aerosol Therapy [RC] ASDIRECTED 09/11/20 18:50 LORazepam [Ativan] 1 mg PO TID PRN oxyCODONE 2.5 mg PO Q8H PRN 09/11/20 19:09 Oxygen Therapy Adult [Oxygen Therapy, ED] [RC] ASDIRECTED 09/11/20 19:24 Telemetry Monitoring [Cardiac Monitoring] [RC] . DIRECTED 09/11/20 21:00 risperiDONE [RisperiDAL] 1 mg PO BID 09/11/20 22:00 Midodrine 10 mg PO TID 09/12/20 09:00 Pantoprazole [ProTONIX IV] 40 mg Sodium Chloride 0.9% [Normal Saline] 10 ml IV DAILY Patient's Own Medication [Ptom] 1 each INH DAILY Patient's Own Medication [Ptom] 1 each PO BID Patient's Own Medication [Ptom] 1 each TOP BID Patient's Own Medication [Ptom] 1 each TOP BID 09/12/20 18:00 Azithromycin [Zithromax] 250 mg IV Q24H 09/12/20 19:30 cefTRIAXone [Rocephin in Dextrose,Iso-Osm 1 GM/50 ML] 1 gm Premix Bag 1 bag IV Q24H - Plan Plan:: 65 y/o F admitted for acute over chronic hypotension and hypoxia cont IV fluids, cont midodrine BP softer this AM, with lactic acidosic, no signs of sepsis,lactic acid likely due to low perfusion secondary to low BP Will start aggressive hydration with 2 bolus of LR, start high dose IV steroids, transfer to ICU for close monitoring of BP May need pressors of refractory hypotension cont oxygenation via NC cont IV antibiotics for CAP Encourage IS Regular diet SCD for dvt ppx Will consider PT eval for generalized weakness when BP is better
[2020-09-12] MEDS ORDERED: CLINDAMYCIN PHOS TOP SCH (09:00)
[2020-09-12] MEDS ORDERED: cefTRIAXone 1 GM Vial IVPUSH SCH (09:00)
[2020-09-12] MEDS ORDERED: Lactated Ringers 1,000 ML IV SCH ×2 (09:00→16:30)
[2020-09-12] MEDS ORDERED: BENZOYL PEROX TOP SCH (09:00)
[2020-09-12] MEDS ORDERED: Lactated Ringers 1,000 ML IV ONE ×2 (09:15→11:15)
[2020-09-12] MEDS: risperiDONE 1 MG Tab PO SCH ×2 (09:22→21:05)
[2020-09-12] MEDS: oxyCODONE 5 MG Tab PO PRN ×2 (09:27→21:08)
[2020-09-12] MEDS: Pantoprazole 40 MG in Sodium Chloride 0.9% 10 ML IV SCH (09:30)
[2020-09-12] MEDS ORDERED: methylPREDNISolone Sodium Succinate 125 MG/2 ML SDV IM ONE (09:55)
[2020-09-12] MEDS ORDERED: methylPREDNISolone Sodium Succinate 125 MG/2 ML SDV IVPUSH ONE (10:30)
[2020-09-12] MEDS: Lubiprostone [Amitiza] 24 MCG PO SCH ×2 (10:43→21:06)
[2020-09-12] MEDS: LORazepam 1 MG Tab PO PRN (10:43)
[2020-09-12] MEDS: Lactated Ringers 1,000 ML IV ONE ×2 (13:07→15:44)
--- NOTE | 2020-09-12 13:17 | PN ---
MARGARET Physician - Brief Progress [id number]/30/2021 12:25[facility] [place], [place] [facility] MW[facility] AVILA YAODate of Service 09/12/2020 12:25HPI/Event s of Note eICU Admission [id number] admitted for hypotension. History obtained from review of EMR, limit ed as documentation regarding reason for involvement of eICU services not available in EMR during jonel e of evaluation.PMH: metastatic lung cancer, per admitting team documentation a 'history of hypotensi on' for which patient is on midodrine as an outpatientHPI: Patient had presented to ED with complaint s of SBP in 60s, and was admitted for a suspected diagnosis of CAP for which she was started on antib iotics. Camera exam: Laying in bed. Vitals monitor reviewed. eICU Recommendations:The primary challen ge in patient's case is the determination of whether hypotension is reflective of hypoperfusion. Crea tinine is normal, lactate is elevated (however this could also be related to patient's underlying mal ignancy). Suggest strict monitoring of urine output, and evaluation of patient for symptoms (ie light headedness) to get a better sense of this. If hypotension is indeed thought to be reflective of hypop erfusion:Suggest intermittent determination of volume status to guide fluid therapy, defer exact tech nique to what is available bedside (ie bedside ultrasound of IVC, NICOM, ETCO2 monitoring with passiv e leg raise, CVP monitoring, VBG from central line for calculation of ScVO2). We are available to [facility] ment as desired.Agree with antibiotics, suspected source including UTI. Can consider urine legionella and procalcitonin to assist with de-escalation of atypical antibiotic coverage. Suggest urine cultur e, not unreasonable to get blood culturesContinue to trend lactate until normalizedDepending on goals of care and prior testing, consider broadening work up for hypotension with:BNP, TTETSH, FT4, Cosynt ropin testingConsider empiric therapy with dexamethasone 4mg IV bolus and assess effect on blood pres sureIf cosyntropin testing suggestive of acute adrenal insufficiency, can initiate stress dose steroi ds with hydrocortisone 50mg IV q6hDVT and GI prophylaxis as appropriate.Thank you for allowing us to participate in the care of this patient.Unless otherwise specified, defer implementation of above rec ommendations to discretion of bedside provider. Please do not hesitate to contact the eICU service fo r questions, clarification, or assistance with implementation.The above note transcribed with the ass istance of dictation software. Please excuse any errors.Interventions Major-Hypotension - evaluation and management
--- NOTE | 2020-09-12 13:20 | PCM.EKG ---
#1 Interpretation EKG Date: 09/12/20 Rhythm: NSR [place]: LAD-Left [place] Deviation P-Wave: Present QRS: Other (left anterior fasilcuar block) ST-T: Normal QT: Normal EKG Interpretation Comments: NO STEMI
[2020-09-12] MEDS ORDERED: Fludrocortisone 0.1 MG Tab PO ONE (13:30)
[2020-09-12] MEDS ORDERED: Azithromycin 500 MG Vial IV SCH (18:00)
[2020-09-12] MEDS ORDERED: Cosyntropin 0.25 MG Vial IV ONE (19:20)
[2020-09-12] MEDS ORDERED: cefTRIAXone 1 GM in Premix Bag 1 BAG IV SCH (19:30)
[2020-09-12] MEDS ORDERED: Azithromycin 250 MG in Sodium Chloride 0.9% 250 ML IV SCH ×2 (20:00→21:00)
[2020-09-12] MEDS: Hydrocortisone Sodium Succinate 100 MG/2 ML SDV IVPUSH SCH (20:44)
[2020-09-13] MEDS: Hydrocortisone Sodium Succinate 100 MG/2 ML SDV IVPUSH SCH ×5 (01:11→23:42)
[2020-09-13] MEDS: Lactated Ringers 1,000 ML IV SCH ×3 (04:49→23:31)
[2020-09-13] MEDS: Midodrine 5 MG Tab PO SCH ×3 (06:09→22:05)
[2020-09-13 06:40] LABS: BLOOD UREA NITROGEN,BUN 5 mg/dL (7.0-18.0); CHLORIDE,CL 103 mmol/L (98-107); GLUCOSE RANDOM 151 mg/dL (74-106); POTASSIUM,K 3.5 mmol/L (3.5-5.1); SODIUM,NA 137 mmol/L (136-145)
[2020-09-13] MEDS: risperiDONE 1 MG Tab PO SCH ×2 (08:20→20:40)
[2020-09-13] MEDS: Pantoprazole 40 MG in Sodium Chloride 0.9% 10 ML IV SCH (08:21)
[2020-09-13] MEDS: Lubiprostone [Amitiza] 24 MCG PO SCH ×2 (08:30→20:39)
[2020-09-13] MEDS ORDERED: Magnesium Sulfate/Water 2 GM/50 ML BAG IV ONE (12:15)
[2020-09-13] MEDS: oxyCODONE 5 MG Tab PO PRN ×2 (12:21→20:37)
--- NOTE | 2020-09-13 13:08 | PCM.PN ---
- General Info Date of Service: 09/13/20 Admission Dx/Problem (Free Text): Admission Diagnosis/Problem Admission Diagnosis/Problem Hypotension Subjective Update: seen at bedside, sleeping, no acute distress, sttaes she "feels better today", is on fence about central line, says she is having 2nd thoughts as she doesnt want very aggressive care if she decompensates Functional Status: Reports: Tolerating Diet, Ambulating - Review of Systems General: Reports: Weakness, Fatigue. Denies: Fever Pulmonary: Denies: Shortness of Breath, Pleuritic Chest Pain Cardiovascular: Denies: Chest Pain, Palpitations Gastrointestinal: Denies: Abdominal Pain, Constipation Genitourinary: Denies: Dysuria, Frequency, Pain Musculoskeletal: Denies: Neck Pain, Shoulder Pain, Arm Pain - Patient Data Vitals - Most Recent: Last Vital Signs Temp 36.3 C 09/13/20 08:00 Pulse 65 09/12/20 10:50 Resp 17 09/13/20 12:00 BP 90/55 L 09/13/20 12:00 Pulse Ox 91 L 09/13/20 12:00 Weight - Most Recent: 55.248 kg I&O - Last 24 Hours: Intake & Output 09/12/20 09/13/20 09/13/20 22:59 06:59 14:59 Intake Total 2557 2105 Output Total 850 750 Balance 1707 1355 Lab Results Last 24 Hours: Laboratory Results - last 24 hr 09/12/20 09/12/20 09/12/20 Range/Units 04:55 12:00 16:15 WBC (4.0-11.0) K/uL RBC (4.30-5.90) M/uL Hgb (12.0-16.0) g/dL Hct (36.0-46.0) % MCV (80.0-98.0) fL MCH (27.0-32.0) pg MCHC (31.0-37.0) g/dL RDW Std Deviation (28.0-62.0) fl RDW Coeff of Wili (11.0-15.0) % Plt Count (150-400) K/uL MPV (7.40-12.00) fL Neut % (Auto) (48.0-80.0) % Lymph % (Auto) (16.0-40.0) % Coos % (Auto) (0.0-15.0) % Eos % (Auto) (0.0-7.0) % Baso % (Auto) (0.0-1.5) % Neut # (Auto) (1.4-5.7) K/uL Lymph # (Auto) (0.6-2.4) K/uL Coos # (Auto) (0.0-0.8) K/uL Eos # (Auto) (0.0-0.7) K/uL Baso # (Auto) (0.0-0.1) K/uL Nucleated RBC % /100WBC Nucleated RBCs # K/uL Sodium (136-145) mmol/L Potassium (3.5-5.1) mmol/L Chloride (98-107) mmol/L Carbon Dioxide (21.0-32.0) mmol/L BUN (7.0-18.0) mg/dL Creatinine (0.6-1.0) mg/dL Est Cr Clr Drug Dosing mL/min Estimated GFR (MDRD) ml/min Glucose (74-106) mg/dL POC Glucose 196 H (60-110) mg/dL Calcium (8.5-10.1) mg/dL Phosphorus (2.6-4.7) mg/dL Magnesium (1.8-2.4) mg/dL Total Bilirubin (0.2-1.0) mg/dL AST (15-37) IU/L ALT (14-63) IU/L Alkaline Phosphatase (46-116) U/L B-Natriuretic Peptide 89 (<100) PG/ML Total Protein (6.4-8.2) g/dL Albumin (3.4-5.0) g/dL Globulin (2.6-4.0) g/dL Albumin/Globulin Ratio (0.9-1.6) TSH 3rd Generation 0.76 (0.36-3.74) uIU/mL 09/13/20 09/13/20 Range/Units 05:55 05:55 WBC 20.32 H (4.0-11.0) K/uL RBC 3.49 L (4.30-5.90) M/uL Hgb 11.1 L (12.0-16.0) g/dL Hct 33.0 L (36.0-46.0) % MCV 94.6 (80.0-98.0) fL MCH 31.8 (27.0-32.0) pg MCHC 33.6 (31.0-37.0) g/dL RDW Std Deviation 48.4 (28.0-62.0) fl RDW Coeff of Wili 14 (11.0-15.0) % Plt Count 426 H (150-400) K/uL MPV 8.60 (7.40-12.00) fL Neut % (Auto) 92.8 H (48.0-80.0) % Lymph % (Auto) 3.2 L (16.0-40.0) % Coos % (Auto) 4.0 (0.0-15.0) % Eos % (Auto) 0.0 (0.0-7.0) % Baso % (Auto) 0.0 (0.0-1.5) % Neut # (Auto) 18.9 H (1.4-5.7) K/uL Lymph # (Auto) 0.7 (0.6-2.4) K/uL Coos # (Auto) 0.8 (0.0-0.8) K/uL Eos # (Auto) 0.0 (0.0-0.7) K/uL Baso # (Auto) 0.0 (0.0-0.1) K/uL Nucleated RBC % 0.0 /100WBC Nucleated RBCs # 0 K/uL Sodium 137 (136-145) mmol/L Potassium 3.5 (3.5-5.1) mmol/L Chloride 103 (98-107) mmol/L Carbon Dioxide 32.0 (21.0-32.0) mmol/L BUN 5 L (7.0-18.0) mg/dL Creatinine 0.6 (0.6-1.0) mg/dL Est Cr Clr Drug Dosing 83.70 mL/min Estimated GFR (MDRD) > 60.0 ml/min Glucose 151 H (74-106) mg/dL POC Glucose (60-110) mg/dL Calcium 8.2 L (8.5-10.1) mg/dL Phosphorus 2.8 (2.6-4.7) mg/dL Magnesium 1.4 L (1.8-2.4) mg/dL Total Bilirubin 0.1 L (0.2-1.0) mg/dL AST 17 (15-37) IU/L ALT 15 (14-63) IU/L Alkaline Phosphatase 140 H (46-116) U/L B-Natriuretic Peptide (<100) PG/ML Total Protein 4.7 L (6.4-8.2) g/dL Albumin 1.4 L (3.4-5.0) g/dL Globulin 3.3 (2.6-4.0) g/dL Albumin/Globulin Ratio 0.4 L (0.9-1.6) TSH 3rd Generation (0.36-3.74) uIU/mL Med Orders - Current: Current Medications Albuterol/Ipratropium (Albuterol/Ipratropium 3.0-0.5 Mg/3 Ml Neb Soln) 3 ml NEB Q4HRRT PRN PRN Reason: Shortness Of Breath/wheezing Fludrocortisone Acetate (Fludrocortisone 0.1 Mg Tab) 0.1 mg PO BIDMEALS [facility] Hydrocortisone Sodium Succinate (Hydrocortisone Sodium Succinate 100 Mg/2 Ml Sdv) 50 mg IVPUSH Q6H [facility] Last Admin: 09/13/20 12:21 Dose: 50 mg Documented by: Lactated Ringer's (Ringers, Lactated) 1,000 mls @ 125 mls/hr IV ASDIRECTED [facility] Last Admin: 09/13/20 04:49 Dose: 125 mls/hr Documented by: Pantoprazole Sodium 40 mg/ (Sodium Chloride) 10 mls @ 300 mls/hr IV DAILY [facility] Last Admin: 09/13/20 08:21 Dose: 300 mls/hr Documented by: Ceftriaxone Sodium/Dextrose 1 (gm/ Premix) 50 mls @ 100 mls/hr IV Q24H [facility] Last Admin: 09/12/20 19:14 Dose: 100 mls/hr Documented by: Lactated Ringer's (Ringers, Lactated) 1,000 mls @ 999 mls/hr IV BOLUS [facility] Last Admin: 09/12/20 16:30 Dose: 999 mls/hr Documented by: Azithromycin 250 mg/ Sodium (Chloride) 250 mls @ 250 mls/hr IV DAILY@2100 [facility] Last Admin: 09/12/20 20:45 Dose: 250 mls/hr Documented by: Magnesium Sulfate (Magnesium Sulfate In Water 2 Gm/50 Ml) 2 gm in 50 mls @ 50 mls/hr IV ONETIME ONE Stop: 09/13/20 13:14 Last Admin: 09/13/20 12:29 Dose: 50 mls/hr Documented by: Lorazepam (Lorazepam 1 Mg Tab) 1 mg PO TID PRN PRN Reason: Anxiety Last Admin: 09/12/20 10:43 Dose: 1 mg Documented by: Midodrine (Midodrine 5 Mg Tab) 10 mg PO TID [facility] Last Admin: 09/13/20 06:09 Dose: 10 mg Documented by: Ondansetron HCl (Ondansetron 4 Mg/2 Ml Sdv) 4 mg IVPUSH Q4H PRN PRN Reason: Nausea/Vomiting Last Admin: 09/11/20 23:03 Dose: 4 mg Documented by: Oxycodone HCl (Oxycodone 5 Mg Tab) 2.5 mg PO Q8H PRN PRN Reason: Pain (moderate 4-6) Last Admin: 09/13/20 12:21 Dose: 2.5 mg Documented by: Umeclidinium Brm/Vilanterol Tr [Anoro Ellipta 62.5-25 Mcg ] 1 each INH DAILY [facility] Last Admin: 09/13/20 09:29 Dose: 1 each Documented by: Fluorouracil 30 Gm (Cream) 1 each TOP BID [facility] Last Admin: 09/13/20 08:30 Dose: 1 each Documented by: Lubiprostone [ (Amitiza] 24 Mcg) 1 each PO BID [facility] Last Admin: 09/13/20 08:30 Dose: 1 each Documented by: Risperidone (Risperidone 1 Mg Tab) 1 mg PO BID [facility] Last Admin: 09/13/20 08:20 Dose: 1 mg Documented by: Discontinued Medications Azithromycin (Azithromycin 500 Mg Vial) 250 mg IV Q24H [facility] Last Admin: 09/12/20 19:34 Dose: Not Given Documented by: Ceftriaxone Sodium (Ceftriaxone 1 Gm Vial) 1 gm IVPUSH ONETIME ONE Stop: 09/11/20 17:57 Last Admin: 09/11/20 19:21 Dose: Not Given Documented by: Cosyntropin (Cosyntropin 0.25 Mg Vial) 0.25 mg IV ONETIME ONE Stop: 09/12/20 19:21 Last Admin: 09/12/20 19:27 Dose: 0.25 mg Documented by: Fludrocortisone Acetate (Fludrocortisone 0.1 Mg Tab) 0.1 mg PO ONETIME ONE Stop: 09/12/20 13:31 Last Admin: 09/12/20 14:26 Dose: 0.1 mg Documented by: Hydrocortisone Sodium Succinate (Hydrocortisone Sodium Succinate 100 Mg/2 Ml Sdv) 100 mg IVPUSH ONETIME ONE Stop: 09/11/20 16:01 Last Admin: 09/11/20 16:22 Dose: 100 mg Documented by: Sodium Chloride (Normal Saline) 500 mls @ 500 mls/hr IV .BOLUS [facility] Last Admin: 09/11/20 12:58 Dose: 500 mls/hr Documented by: Azithromycin 500 mg/ Sodium (Chloride) 250 mls @ 250 mls/hr IV ONETIME [facility] Last Admin: 09/11/20 22:20 Dose: 250 mls/hr Documented by: Sodium Chloride (Normal Saline) 500 mls @ 500 mls/hr IV .BOLUS [facility] Last Admin: 09/11/20 20:30 Dose: 500 mls/hr Documented by: Ceftriaxone Sodium/Dextrose 1 (gm/ Premix) 50 mls @ 100 mls/hr IV ONETIME ONE Stop: 09/11/20 19:49 Last Admin: 09/11/20 19:25 Dose: 100 mls/hr Documented by: Lactated Ringer's (Ringers, Lactated) 1,000 mls @ 999 mls/hr IV ASDIRECTED [facility] Lactated Ringer's (Ringers, Lactated) 1,000 mls @ 999 mls/hr IV .BOLUS ONE Stop: 09/12/20 10:15 Last Admin: 09/12/20 10:14 Dose: 999 mls/hr Documented by: Lactated Ringer's (Ringers, Lactated) 1,000 mls @ 999 mls/hr IV .BOLUS ONE Stop: 09/12/20 12:15 Last Admin: 09/12/20 12:17 Dose: 999 mls/hr Documented by: Lactated Ringer's (Ringers, Lactated) 1,000 mls @ 999 mls/hr IV .BOLUS ONE Stop: 09/12/20 11:15 Last Admin: 09/12/20 15:44 Dose: Not Given Documented by: Azithromycin 250 mg/ Sodium (Chloride) 250 mls @ 250 mls/hr IV DAILY@1999 [facility] Last Admin: 09/12/20 21:44 Dose: Not Given Documented by: Azithromycin 250 mg/ Sodium (Chloride) 250 mls @ 250 mls/hr IV DAILY@1999 [facility] Methylprednisolone Sodium Succinate (Methylprednisolone Sodium Succinate 125 Mg/2 Ml Sdv) 125 mg IM ONETIME ONE Stop: 09/12/20 09:56 Methylprednisolone Sodium Succinate (Methylprednisolone Sodium Succinate 125 M g/2 Ml Sdv) 125 mg IVPUSH ONETIME ONE Stop: 09/12/20 10:31 Last Admin: 09/12/20 10:42 Dose: 125 mg Documented by: Midodrine (Midodrine 5 Mg Tab) 5 mg PO ONETIME STA Stop: 09/11/20 12:50 Last Admin: 09/11/20 12:57 Dose: 5 mg Documented by: Morphine Sulfate (Morphine 10 Mg/Ml Syringe) 1 mg IVPUSH Q3H PRN PRN Reason: Pain (severe 7-10) Stop: 09/12/20 18:45 Non-Formulary Medication (Clindamycin Phos/Benzoyl Perox [Clinda-Benzoyl Perox 1-5% Pump]) 1 applic TOP BID [facility] Last Admin: 09/11/20 21:50 Dose: Not Given Documented by: Non-Formulary Medication (Fluorouracil [Fluorouracil]) 1 applic TOP BID [facility] Last Admin: 09/11/20 23:41 Dose: 1 applic Documented by: Non-Formulary Medication (Lubiprostone) 24 mcg PO BID [facility] Last Admin: 09/11/20 21:51 Dose: Not Given Documented by: Non-Formulary Medication (Pregabalin) 100 mg PO TID [facility] Last Admin: 09/12/20 05:16 Dose: Not Given Documented by: Potassium Chloride (Potassium Chloride 10% 20 Meq/15 Ml Soln 30 Ml Ud Cup) 40 meq PO ONETIME ONE Stop: 09/11/20 14:56 Last Admin: 09/11/20 15:06 Dose: 40 meq Documented by: - Exam Quality Assessment: Supplemental Oxygen General: Alert, Oriented Lungs: Clear to Auscultation, Normal Respiratory Effort Cardiovascular: Regular Rate, Regular Rhythm, No Murmurs, Irregular Rhythm GI/Abdominal Exam: Normal Bowel Sounds, Soft, Non-Tender - Patient Data Lab Results Last 24 hrs: Laboratory Results - last 24 hr 09/12/20 09/12/20 09/12/20 Range/Units 04:55 12:00 16:15 WBC (4.0-11.0) K/uL RBC (4.30-5.90) M/uL Hgb (12.0-16.0) g/dL Hct (36.0-46.0) % MCV (80.0-98.0) fL MCH (27.0-32.0) pg MCHC (31.0-37.0) g/dL RDW Std Deviation (28.0-62.0) fl RDW Coeff of Wili (11.0-15.0) % Plt Count (150-400) K/uL MPV (7.40-12.00) fL Neut % (Auto) (48.0-80.0) % Lymph % (Auto) (16.0-40.0) % Coos % (Auto) (0.0-15.0) % Eos % (Auto) (0.0-7.0) % Baso % (Auto) (0.0-1.5) % Neut # (Auto) (1.4-5.7) K/uL Lymph # (Auto) (0.6-2.4) K/uL Coos # (Auto) (0.0-0.8) K/uL Eos # (Auto) (0.0-0.7) K/uL Baso # (Auto) (0.0-0.1) K/uL Nucleated RBC % /100WBC Nucleated RBCs # K/uL Sodium (136-145) mmol/L Potassium (3.5-5.1) mmol/L Chloride (98-107) mmol/L Carbon Dioxide (21.0-32.0) mmol/L BUN (7.0-18.0) mg/dL Creatinine (0.6-1.0) mg/dL Est Cr Clr Drug Dosing mL/min Estimated GFR (MDRD) ml/min Glucose (74-106) mg/dL POC Glucose 196 H (60-110) mg/dL Calcium (8.5-10.1) mg/dL Phosphorus (2.6-4.7) mg/dL Magnesium (1.8-2.4) mg/dL Total Bilirubin (0.2-1.0) mg/dL AST (15-37) IU/L ALT (14-63) IU/L Alkaline Phosphatase (46-116) U/L B-Natriuretic Peptide 89 (<100) PG/ML Total Protein (6.4-8.2) g/dL Albumin (3.4-5.0) g/dL Globulin (2.6-4.0) g/dL Albumin/Globulin Ratio (0.9-1.6) TSH 3rd Generation 0.76 (0.36-3.74) uIU/mL 09/13/20 09/13/20 Range/Units 05:55 05:55 WBC 20.32 H (4.0-11.0) K/uL RBC 3.49 L (4.30-5.90) M/uL Hgb 11.1 L (12.0-16.0) g/dL Hct 33.0 L (36.0-46.0) % MCV 94.6 (80.0-98.0) fL MCH 31.8 (27.0-32.0) pg MCHC 33.6 (31.0-37.0) g/dL RDW Std Deviation 48.4 (28.0-62.0) fl RDW Coeff of Wili 14 (11.0-15.0) % Plt Count 426 H (150-400) K/uL MPV 8.60 (7.40-12.00) fL Neut % (Auto) 92.8 H (48.0-80.0) % Lymph % (Auto) 3.2 L (16.0-40.0) % Coos % (Auto) 4.0 (0.0-15.0) % Eos % (Auto) 0.0 (0.0-7.0) % Baso % (Auto) 0.0 (0.0-1.5) % Neut # (Auto) 18.9 H (1.4-5.7) K/uL Lymph # (Auto) 0.7 (0.6-2.4) K/uL Coos # (Auto) 0.8 (0.0-0.8) K/uL Eos # (Auto) 0.0 (0.0-0.7) K/uL Baso # (Auto) 0.0 (0.0-0.1) K/uL Nucleated RBC % 0.0 /100WBC Nucleated RBCs # 0 K/uL Sodium 137 (136-145) mmol/L Potassium 3.5 (3.5-5.1) mmol/L Chloride 103 (98-107) mmol/L Carbon Dioxide 32.0 (21.0-32.0) mmol/L BUN 5 L (7.0-18.0) mg/dL Creatinine 0.6 (0.6-1.0) mg/dL Est Cr Clr Drug Dosing 83.70 mL/min Estimated GFR (MDRD) > 60.0 ml/min Glucose 151 H (74-106) mg/dL POC Glucose (60-110) mg/dL Calcium 8.2 L (8.5-10.1) mg/dL Phosphorus 2.8 (2.6-4.7) mg/dL Magnesium 1.4 L (1.8-2.4) mg/dL Total Bilirubin 0.1 L (0.2-1.0) mg/dL AST 17 (15-37) IU/L ALT 15 (14-63) IU/L Alkaline Phosphatase 140 H (46-116) U/L B-Natriuretic Peptide (<100) PG/ML Total Protein 4.7 L (6.4-8.2) g/dL Albumin 1.4 L (3.4-5.0) g/dL Globulin 3.3 (2.6-4.0) g/dL Albumin/Globulin Ratio 0.4 L (0.9-1.6) TSH 3rd Generation (0.36-3.74) uIU/mL Result Diagrams: 09/13/20 05:55 09/13/20 05:55 Sepsis Event Note - Evaluation Sepsis Screening Result: No Definite Risk - Focused Exam Vital Signs: Vital Signs Temp Resp BP Pulse Ox 09/13/20 12:00 17 90/55 L 91 L 09/13/20 11:00 16 81/50 L 94 L 09/13/20 10:00 15 88/55 L 94 L 09/13/20 09:00 14 90/49 L 97 09/13/20 08:00 36.3 C 18 83/56 L 93 L 09/13/20 07:00 19 107/49 L 97 09/13/20 06:00 13 97/62 94 L 09/13/20 05:00 15 90/54 L 95 09/13/20 04:00 36.3 C 12 98/55 L 96 09/13/20 03:00 12 98/55 L 94 L 09/13/20 02:00 15 92/53 L 94 L - Problem List & Annotations (1) Chronic low blood pressure SNOMED Code(s): 79015740 Code(s): I95.89 - OTHER HYPOTENSION Status: Acute Current Visit: Yes (2) Hypotension SNOMED Code(s): 00468171 Code(s): I95.9 - HYPOTENSION, UNSPECIFIED Status: Acute Current Visit: Yes (3) Pneumonia SNOMED Code(s): 402187680 Code(s): J18.9 - PNEUMONIA, UNSPECIFIED ORGANISM Status: Acute Current Visit: Yes (4) Failure to thrive SNOMED Code(s): 88290846 Code(s): BBS9025 - Status: Acute Current Visit: No (5) Lung cancer metastatic to brain SNOMED Code(s): 70321986 Code(s): C34.90 - MALIGNANT NEOPLASM OF UNSP PART OF UNSP BRONCHUS OR LUNG; C79.31 - SECONDARY MALIGNANT NEOPLASM OF BRAIN Status: Acute Current Visit: No (6) TIA (transient ischemic attack) SNOMED Code(s): 588482148 Code(s): G45.9 - TRANSIENT CEREBRAL ISCHEMIC ATTACK, UNSPECIFIED Status: Acute Current Visit: No (7) CAP (community acquired pneumonia) SNOMED Code(s): 803345420 Code(s): J18.9 - PNEUMONIA, UNSPECIFIED ORGANISM Status: Acute Current Visit: Yes - Problem List Review Problem List Initiated/Reviewed/Updated: Yes - My Orders Last 24 Hours: My Active Orders 09/12/20 14:30 Communication Order [RC] ROUTINE 09/12/20 16:30 Lactated Ringers [Ringers, Lactated] 1,000 ml IV BOLUS 09/12/20 18:00 Hydrocortisone Sod Succinate [Solu-CORTEF] 50 mg IVPUSH Q6H 09/12/20 19:14 Blood Culture x2 Reflex Set [OM.PC] Stat 09/12/20 19:15 Communication Order [RC] ROUTINE 09/12/20 19:29 CULTURE BLOOD [BC] Stat 09/12/20 19:30 cefTRIAXone [Rocephin in Dextrose,Iso-Osm 1 GM/50 ML] 1 gm Premix Bag 1 bag IV Q24H 09/12/20 19:40 CULTURE BLOOD [BC] Stat 09/12/20 20:34 ACTH STIMULATION [REF] Routine 09/12/20 21:00 Azithromycin [Zithromax] 250 mg Sodium Chloride 0.9% [Normal Saline] 250 ml IV DAILY@2100 09/13/20 12:15 Magnesium Sulfate/Water [Magnesium Sulfate in Water 2 GM/50 ML] 2 gm in 50 ml IV ONETIME 09/13/20 17:00 Fludrocortisone [Florinef] 0.1 mg PO BIDMEALS - Plan Plan:: 65 y/o F admitted for acute over chronic hypotension and hypoxia cont IV fluids, cont midodrine cont stress dose steroids, no end organ damage at this point May need pressors of refractory hypotension but patient isnt sure if she wants a central line, we spoke with her son and patient too, they are still deciding about central line. cont oxygenation via NC cont IV antibiotics for CAP f/u on blood cultures f/u on ACTH stimulation test. send out may take few days Encourage IS Regular diet SCD for dvt ppx Will consider PT eval for generalized weakness when BP is better Patient very deconditioned from her prior cancer and subsequent treatments, Poor prognosis if further decompensation
[2020-09-13] MEDS: Meropenem 2 GM in Sodium Chloride 0.9% 100 ML IV SCH ×2 (14:34→22:05)
[2020-09-13] MEDS: Fludrocortisone 0.1 MG Tab PO SCH (17:54)
[2020-09-13] MEDS ORDERED: Azithromycin 250 MG in Sodium Chloride 0.9% 250 ML IV SCH (20:00)
[2020-09-14] MEDS: Midodrine 5 MG Tab PO SCH ×3 (01:45→21:10)
[2020-09-14] MEDS: oxyCODONE 5 MG Tab PO PRN ×3 (04:38→21:10)
[2020-09-14] MEDS: Meropenem 2 GM in Sodium Chloride 0.9% 100 ML IV SCH ×3 (05:51→21:11)
[2020-09-14] MEDS: Hydrocortisone Sodium Succinate 100 MG/2 ML SDV IVPUSH SCH ×4 (05:52→19:07)
[2020-09-14] MEDS: Lactated Ringers 1,000 ML IV SCH (07:38)
[2020-09-14] MEDS: Pantoprazole 40 MG in Sodium Chloride 0.9% 10 ML IV SCH (08:06)
[2020-09-14] MEDS: Lubiprostone [Amitiza] 24 MCG PO SCH ×2 (08:06→21:14)
[2020-09-14] MEDS: risperiDONE 1 MG Tab PO SCH ×2 (08:06→21:10)
[2020-09-14] MEDS: Fludrocortisone 0.1 MG Tab PO SCH ×2 (08:06→17:43)
[2020-09-14] MEDS ORDERED: Magnesium Sulfate/Water 2 GM/50 ML BAG IV ONE (09:30)
[2020-09-14] MEDS ORDERED: Magnesium Oxide 400 MG Tab PO ONE (09:30)
[2020-09-14 10:29] LABS: BLOOD UREA NITROGEN,BUN 5 mg/dL (7.0-18.0); CARBON DIOXIDE,CO2 34.3 mmol/L (21.0-32.0); CHLORIDE,CL 99 mmol/L (98-107); GLUCOSE RANDOM 116 mg/dL (74-106); POTASSIUM,K 2.8 mmol/L (3.5-5.1); SODIUM,NA 138 mmol/L (136-145)
[2020-09-14] MEDS: Enoxaparin 40 MG/0.4 ML Syringe SUBCUT SCH (10:33)
[2020-09-14] MEDS ORDERED: Potassium Chloride Riders 40 MEQ in Premix Bag 1 BAG IV ONE (11:07)
--- NOTE | 2020-09-14 11:07 | PCM.PN ---
- General Info Date of Service: 09/14/20 Admission Dx/Problem (Free Text): Admission Diagnosis/Problem Admission Diagnosis/Problem Hypotension Subjective Update: seen at bedside, sleeping, no acute distress, has been eating and drinking well - Review of Systems General: Reports: Weakness, Malaise. Denies: Fever, Fatigue Pulmonary: Denies: Shortness of Breath, Pleuritic Chest Pain Cardiovascular: Denies: Chest Pain, Palpitations Gastrointestinal: Denies: Abdominal Pain, Constipation Genitourinary: Denies: Dysuria, Frequency, Burning Musculoskeletal: Denies: Neck Pain, Shoulder Pain, Arm Pain Skin: Denies: Cyanosis, Jaundice, Mottled - Patient Data Vitals - Most Recent: Last Vital Signs Temp 36.2 C 09/14/20 08:00 Pulse 65 09/12/20 10:50 Resp 10 L 09/14/20 10:00 BP 91/57 L 09/14/20 10:00 Pulse Ox 90 L 09/14/20 10:00 Weight - Most Recent: 55.837 kg I&O - Last 24 Hours: Intake & Output 09/13/20 09/14/20 09/14/20 22:59 06:59 14:59 Intake Total 3345 2930 Output Total 1000 600 Balance 2345 2330 Lab Results Last 24 Hours: Laboratory Results - last 24 hr 09/12/20 09/14/20 09/14/20 Range/Units 20:34 09:45 09:45 WBC 16.03 H (4.0-11.0) K/uL RBC 4.00 L (4.30-5.90) M/uL Hgb 12.5 (12.0-16.0) g/dL Hct 38.2 (36.0-46.0) % MCV 95.5 (80.0-98.0) fL MCH 31.3 (27.0-32.0) pg MCHC 32.7 (31.0-37.0) g/dL RDW Std Deviation 50.4 (28.0-62.0) fl RDW Coeff of Wili 14 (11.0-15.0) % Plt Count 423 H (150-400) K/uL MPV 8.60 (7.40-12.00) fL Neut % (Auto) 93.0 H (48.0-80.0) % Lymph % (Auto) 3.4 L (16.0-40.0) % [place] % (Auto) 3.5 (0.0-15.0) % Eos % (Auto) 0.0 (0.0-7.0) % Baso % (Auto) 0.1 (0.0-1.5) % Neut # (Auto) 14.9 H (1.4-5.7) K/uL Lymph # (Auto) 0.5 L (0.6-2.4) K/uL [place] # (Auto) 0.6 (0.0-0.8) K/uL Eos # (Auto) 0.0 (0.0-0.7) K/uL Baso # (Auto) 0.0 (0.0-0.1) K/uL Nucleated RBC % 0.0 /100WBC Nucleated RBCs # 0 K/uL Sodium 138 (136-145) mmol/L Potassium 2.8 L (3.5-5.1) mmol/L Chloride 99 (98-107) mmol/L Carbon Dioxide 34.3 H (21.0-32.0) mmol/L BUN 5 L (7.0-18.0) mg/dL Creatinine 0.6 (0.6-1.0) mg/dL Est Cr Clr Drug Dosing 84.60 mL/min Estimated GFR (MDRD) > 60.0 ml/min Glucose 116 H (74-106) mg/dL Calcium 8.3 L (8.5-10.1) mg/dL Cortisol Resp to ACTH 12.4 ug/dL Cortisol Resp ACTH 30m 29.0 ug/dL Cortisol Resp ACTH 60m 35.5 ug/dL Chase Results Last 24 Hours: Microbiology 09/11/20 18:57 Urine Culture - Final Urine, Clean Catch Klebsiella Pneumoniae 09/12/20 19:40 Aerobic Blood Culture - Preliminary Blood - Venous - Lab Draw NO GROWTH AFTER 1 DAY Anaerobic Blood Culture - Preliminary NO GROWTH AFTER 1 DAY 09/12/20 19:29 Aerobic Blood Culture - Preliminary Blood - Venous NO GROWTH AFTER 1 DAY Anaerobic Blood Culture - Preliminary NO GROWTH AFTER 1 DAY Med Orders - Current: Current Medications Albuterol/Ipratropium (Albuterol/Ipratropium 3.0-0.5 Mg/3 Ml Neb Soln) 3 ml NEB Q4HRRT PRN PRN Reason: Shortness Of Breath/wheezing Enoxaparin Sodium (Enoxaparin 40 Mg/0.4 Ml Syringe) 40 mg SUBCUT Q24H [facility] Last Admin: 09/14/20 10:33 Dose: 40 mg Documented by: Fludrocortisone Acetate (Fludrocortisone 0.1 Mg Tab) 0.1 mg PO BIDMEALS [facility] Last Admin: 09/14/20 08:06 Dose: 0.1 mg Documented by: Hydrocortisone Sodium Succinate (Hydrocortisone Sodium Succinate 100 Mg/2 Ml Sdv) 50 mg IVPUSH Q6H [facility] Last Admin: 09/14/20 05:52 Dose: 50 mg Documented by: Lactated Ringer's (Ringers, Lactated) 1,000 mls @ 125 mls/hr IV ASDIRECTED [facility] Last Infusion: 09/14/20 09:01 Dose: 0 mls/hr Documented by: Pantoprazole Sodium 40 mg/ (Sodium Chloride) 10 mls @ 300 mls/hr IV DAILY [facility] Last Admin: 09/14/20 08:06 Dose: 300 mls/hr Documented by: Lactated Ringer's (Ringers, Lactated) 1,000 mls @ 999 mls/hr IV BOLUS [facility] Last Admin: 09/12/20 16:30 Dose: 999 mls/hr Documented by: Meropenem 2 gm/ Sodium (Chloride) 100 mls @ 100 mls/hr IV Q8H [facility] Last Admin: 09/14/20 05:51 Dose: 100 mls/hr Documented by: Vancomycin HCl 750 mg/ Sodium (Chloride) 250 mls @ 166.667 mls/hr IV Q8H [facility] Last Admin: 09/14/20 06:55 Dose: 166.667 mls/hr Documented by: Lorazepam (Lorazepam 1 Mg Tab) 1 mg PO TID PRN PRN Reason: Anxiety Last Admin: 09/12/20 10:43 Dose: 1 mg Documented by: Midodrine (Midodrine 5 Mg Tab) 10 mg PO TID [facility] Last Admin: 09/14/20 05:52 Dose: 10 mg Documented by: Ondansetron HCl (Ondansetron 4 Mg/2 Ml Sdv) 4 mg IVPUSH Q4H PRN PRN Reason: Nausea/Vomiting Last Admin: 09/11/20 23:03 Dose: 4 mg Documented by: Oxycodone HCl (Oxycodone 5 Mg Tab) 2.5 mg PO Q8H PRN PRN Reason: Pain (moderate 4-6) Last Admin: 09/14/20 04:38 Dose: 2.5 mg Documented by: Umeclidinium Brm/Vilanterol Tr [Anoro Ellipta 62.5-25 Mcg ] 1 each INH DAILY [facility] Last Admin: 09/14/20 09:01 Dose: 1 each Documented by: Fluorouracil 30 Gm (Cream) 1 each TOP BID [facility] Last Admin: 09/14/20 08:07 Dose: 1 each Documented by: Lubiprostone [ (Amitiza] 24 Mcg) 1 each PO BID [facility] Last Admin: 09/14/20 08:06 Dose: 1 each Documented by: Risperidone (Risperidone 1 Mg Tab) 1 mg PO BID [facility] Last Admin: 09/14/20 08:06 Dose: 1 mg Documented by: Vancomycin HCl (Pharmacy To Dose - Vancomycin) 1 dose .XX ASDIRECTED [facility] Discontinued Medications Azithromycin (Azithromycin 500 Mg Vial) 250 mg IV Q24H [facility] Last Admin: 09/12/20 19:34 Dose: Not Given Documented by: Ceftriaxone Sodium (Ceftriaxone 1 Gm Vial) 1 gm IVPUSH ONETIME ONE Stop: 09/11/20 17:57 Last Admin: 09/11/20 19:21 Dose: Not Given Documented by: Cosyntropin (Cosyntropin 0.25 Mg Vial) 0.25 mg IV ONETIME ONE Stop: 09/12/20 19:21 Last Admin: 09/12/20 19:27 Dose: 0.25 mg Documented by: Fludrocortisone Acetate (Fludrocortisone 0.1 Mg Tab) 0.1 mg PO ONETIME ONE Stop: 09/12/20 13:31 Last Admin: 09/12/20 14:26 Dose: 0.1 mg Documented by: Hydrocortisone Sodium Succinate (Hydrocortisone Sodium Succinate 100 Mg/2 Ml Sdv) 100 mg IVPUSH ONETIME ONE Stop: 09/11/20 16:01 Last Admin: 09/11/20 16:22 Dose: 100 mg Documented by: Sodium Chloride (Normal Saline) 500 mls @ 500 mls/hr IV .BOLUS [facility] Last Admin: 09/11/20 12:58 Dose: 500 mls/hr Documented by: Azithromycin 500 mg/ Sodium (Chloride) 250 mls @ 250 mls/hr IV ONETIME [facility] Last Admin: 09/11/20 22:20 Dose: 250 mls/hr Documented by: Sodium Chloride (Normal Saline) 500 mls @ 500 mls/hr IV .BOLUS [facility] Last Admin: 09/11/20 20:30 Dose: 500 mls/hr Documented by: Ceftriaxone Sodium/Dextrose 1 (gm/ Premix) 50 mls @ 100 mls/hr IV ONETIME ONE Stop: 09/11/20 19:49 Last Admin: 09/11/20 19:25 Dose: 100 mls/hr Documented by: Ceftriaxone Sodium/Dextrose 1 (gm/ Premix) 50 mls @ 100 mls/hr IV Q24H [facility] Last Admin: 09/12/20 19:14 Dose: 100 mls/hr Documented by: Lactated Ringer's (Ringers, Lactated) 1,000 mls @ 999 mls/hr IV ASDIRECTED [facility] Lactated Ringer's (Ringers, Lactated) 1,000 mls @ 999 mls/hr IV .BOLUS ONE Stop: 09/12/20 10:15 Last Admin: 09/12/20 10:14 Dose: 999 mls/hr Documented by: Lactated Ringer's (Ringers, Lactated) 1,000 mls @ 999 mls/hr IV .BOLUS ONE Stop: 09/12/20 12:15 Last Admin: 09/12/20 12:17 Dose: 999 mls/hr Documented by: Lactated Ringer's (Ringers, Lactated) 1,000 mls @ 999 mls/hr IV .BOLUS ONE Stop: 09/12/20 11:15 Last Admin: 09/12/20 15:44 Dose: Not Given Documented by: Azithromycin 250 mg/ Sodium (Chloride) 250 mls @ 250 mls/hr IV DAILY@1999 [facility] Last Admin: 09/12/20 21:44 Dose: Not Given Documented by: Azithromycin 250 mg/ Sodium (Chloride) 250 mls @ 250 mls/hr IV DAILY@1999 [facility] Azithromycin 250 mg/ Sodium (Chloride) 250 mls @ 250 mls/hr IV DAILY@2099 [facility] Last Admin: 09/12/20 20:45 Dose: 250 mls/hr Documented by: Magnesium Sulfate (Magnesium Sulfate In Water 2 Gm/50 Ml) 2 gm in 50 mls @ 50 mls/hr IV ONETIME ONE Stop: 09/13/20 13:14 Last Admin: 09/13/20 12:29 Dose: 50 mls/hr Documented by: Magnesium Sulfate (Magnesium Sulfate In Water 2 Gm/50 Ml) 2 gm in 50 mls @ 50 mls/hr IV ONETIME ONE Stop: 09/14/20 10:29 Magnesium Oxide (Magnesium Oxide 400 Mg Tab) 800 mg PO ONETIME ONE Stop: 09/14/20 09:31 Methylprednisolone Sodium Succinate (Methylprednisolone Sodium Succinate 125 Mg/2 Ml Sdv) 125 mg IM ONETIME ONE Stop: 09/12/20 09:56 Methylprednisolone Sodium Succinate (Methylprednisolone Sodium Succinate 125 Mg/2 Ml Sdv) 125 mg IVPUSH ONETIME ONE Stop: 09/12/20 10:31 Last Admin: 09/12/20 10:42 Dose: 125 mg Documented by: Midodrine (Midodrine 5 Mg Tab) 5 mg PO ONETIME STA Stop: 09/11/20 12:50 Last Admin: 09/11/20 12:57 Dose: 5 mg Documented by: Morphine Sulfate (Morphine 10 Mg/Ml Syringe) 1 mg IVPUSH Q3H PRN PRN Reason: Pain (severe 7-10) Stop: 09/12/20 18:45 Non-Formulary Medication (Clindamycin Phos/Benzoyl Perox [Clinda-Benzoyl Perox 1-5% Pump]) 1 applic TOP BID [facility] Last Admin: 09/11/20 21:50 Dose: Not Given Documented by: Non-Formulary Medication (Fluorouracil [Fluorouracil]) 1 applic TOP BID [facility] Last Admin: 09/11/20 23:41 Dose: 1 applic Documented by: Non-Formulary Medication (Lubiprostone) 24 mcg PO BID [facility] Last Admin: 09/11/20 21:51 Dose: Not Given Documented by: Non-Formulary Medication (Pregabalin) 100 mg PO TID [facility] Last Admin: 09/12/20 05:16 Dose: Not Given Documented by: Potassium Chloride (Potassium Chloride 10% 20 Meq/15 Ml Soln 30 Ml Ud Cup) 40 meq PO ONETIME ONE Stop: 09/11/20 14:56 Last Admin: 09/11/20 15:06 Dose: 40 meq Documented by: - Exam General: Alert, Oriented Neck: Supple Lungs: Clear to Auscultation, Normal Respiratory Effort Cardiovascular: Regular Rate, Regular Rhythm - Patient Data Lab Results Last 24 hrs: Laboratory Results - last 24 hr 09/12/20 09/14/20 09/14/20 Range/Units 20:34 09:45 09:45 WBC 16.03 H (4.0-11.0) K/uL RBC 4.00 L (4.30-5.90) M/uL Hgb 12.5 (12.0-16.0) g/dL Hct 38.2 (36.0-46.0) % MCV 95.5 (80.0-98.0) fL MCH 31.3 (27.0-32.0) pg MCHC 32.7 (31.0-37.0) g/dL RDW Std Deviation 50.4 (28.0-62.0) fl RDW Coeff of Wili 14 (11.0-15.0) % Plt Count 423 H (150-400) K/uL MPV 8.60 (7.40-12.00) fL Neut % (Auto) 93.0 H (48.0-80.0) % Lymph % (Auto) 3.4 L (16.0-40.0) % [place] % (Auto) 3.5 (0.0-15.0) % Eos % (Auto) 0.0 (0.0-7.0) % Baso % (Auto) 0.1 (0.0-1.5) % Neut # (Auto) 14.9 H (1.4-5.7) K/uL Lymph # (Auto) 0.5 L (0.6-2.4) K/uL [place] # (Auto) 0.6 (0.0-0.8) K/uL Eos # (Auto) 0.0 (0.0-0.7) K/uL Baso # (Auto) 0.0 (0.0-0.1) K/uL Nucleated RBC % 0.0 /100WBC Nucleated RBCs # 0 K/uL Sodium 138 (136-145) mmol/L Potassium 2.8 L (3.5-5.1) mmol/L Chloride 99 (98-107) mmol/L Carbon Dioxide 34.3 H (21.0-32.0) mmol/L BUN 5 L (7.0-18.0) mg/dL Creatinine 0.6 (0.6-1.0) mg/dL Est Cr Clr Drug Dosing 84.60 mL/min Estimated GFR (MDRD) > 60.0 ml/min Glucose 116 H (74-106) mg/dL Calcium 8.3 L (8.5-10.1) mg/dL Cortisol Resp to ACTH 12.4 ug/dL Cortisol Resp ACTH 30m 29.0 ug/dL Cortisol Resp ACTH 60m 35.5 ug/dL Result Diagrams: 09/14/20 09:45 09/14/20 09:45 Chase Results Last 24 hrs: Microbiology 09/11/20 18:57 Urine Culture - Final Urine, Clean Catch Klebsiella Pneumoniae 09/12/20 19:40 Aerobic Blood Culture - Preliminary Blood - Venous - Lab Draw NO GROWTH AFTER 1 DAY Anaerobic Blood Culture - Preliminary NO GROWTH AFTER 1 DAY 09/12/20 19:29 Aerobic Blood Culture - Preliminary Blood - Venous NO GROWTH AFTER 1 DAY Anaerobic Blood Culture - Preliminary NO GROWTH AFTER 1 DAY Sepsis Event Note - Evaluation Sepsis Screening Result: No Definite Risk - Focused Exam Vital Signs: Vital Signs Temp Resp BP Pulse Ox 09/14/20 10:00 10 L 91/57 L 90 L 09/14/20 09:00 21 H 92/55 L 90 L 09/14/20 08:00 36.2 C 12 104/67 90 L 09/14/20 07:00 11 L 102/59 L 90 L 09/14/20 06:00 12 106/57 L 92 L 09/14/20 05:00 18 102/67 88 L 09/14/20 04:00 36.1 C 15 105/59 L 93 L 09/14/20 03:00 12 103/54 L 92 L 09/14/20 02:00 15 98/59 L 92 L 09/14/20 01:00 13 97/52 L 92 L 09/14/20 00:00 36.3 C 15 91/59 L 91 L - Problem List & Annotations (1) Chronic low blood pressure SNOMED Code(s): 38931253 Code(s): I95.89 - OTHER HYPOTENSION Status: Acute Current Visit: Yes (2) Hypotension SNOMED Code(s): 22723706 Code(s): I95.9 - HYPOTENSION, UNSPECIFIED Status: Acute Current Visit: Yes (3) Pneumonia SNOMED Code(s): 312327484 Code(s): J18.9 - PNEUMONIA, UNSPECIFIED ORGANISM Status: Acute Current Visit: Yes (4) Failure to thrive SNOMED Code(s): 05965114 Code(s): RRU5459 - Status: Acute Current Visit: No (5) Lung cancer metastatic to brain SNOMED Code(s): 13169604 Code(s): C34.90 - MALIGNANT NEOPLASM OF UNSP PART OF UNSP BRONCHUS OR LUNG; C79.31 - SECONDARY MALIGNANT NEOPLASM OF BRAIN Status: Acute Current Visit: No (6) TIA (transient ischemic attack) SNOMED Code(s): 750467219 Code(s): G45.9 - TRANSIENT CEREBRAL ISCHEMIC ATTACK, UNSPECIFIED Status: Acute Current Visit: No (7) CAP (community acquired pneumonia) SNOMED Code(s): 831061260 Code(s): J18.9 - PNEUMONIA, UNSPECIFIED ORGANISM Status: Acute Current Visit: Yes - Problem List Review Problem List Initiated/Reviewed/Updated: Yes - My Orders Last 24 Hours: My Active Orders 09/13/20 13:30 Pharmacy to Dose - Vancomycin 1 dose .XX ASDIRECTED 09/13/20 14:00 Meropenem [Merrem] 2 gm Sodium Chloride 0.9% [Normal Saline] 100 ml IV Q8H 09/13/20 15:00 Vancomycin 750 mg Sodium Chloride 0.9% [Normal Saline (AdvBag)] 250 ml IV Q8H 09/13/20 17:00 Fludrocortisone [Florinef] 0.1 mg PO BIDMEALS 09/14/20 09:30 Enoxaparin [Lovenox] 40 mg SUBCUT Q24H - Plan Plan:: 65 y/o F admitted for acute over chronic hypotension and hypoxia cont IV fluids, cont midodrine cont stress dose steroids, no end organ damage at this point, BP has improved cont oxygenation via NC Cont Broad spectrum antibiotics f/u on blood cultures f/u on ACTH stimulation test. send out may take few days Encourage IS Regular diet SCD for dvt ppx Will consider PT eval Patient very deconditioned from her prior cancer and subsequent treatments, Poor prognosis if further decompensation Patient is requesting a hospice consult
[2020-09-14] MEDS ORDERED: Potassium Chloride 10% 20 MEQ/15 ML Soln 30 ML UD Cup PO ONE (11:15)
[2020-09-14] MEDS ORDERED: Potassium Chloride 40 MEQ in Sodium Chloride 0.9% 500 ML IV ONE (11:30)
--- NOTE | 2020-09-14 14:26 | PN ---
THC Physician - Brief Progress [id number]/01/2021 14:09[facility] Bernabe Adi ot[place], [place] - PANFILON (TENZ[place]) - MWN JEFFAVILA WAKEFIELDPratimaDate of Service 09/14/2020 14:09HPI/Event s of Note eICU Progress [id number] PMH metastatic lung cancer admitted for hypotension which is chronic, on midodrine. No evidence of hypoperfusion. Started on broad-spectrum empiric antibiotic coverage fo r presumed source. Was also started on stress dose steroids. Cosyntropin stim test was completed.N o notable events overnightOn cameraxthe patient is awake, seated in a chair and appears to be in no d istressReviewedVitalsEMR notesLabs-cosyntropin stim test notedAvailable imagingMicroxnoted urine cult ure with Klebsiella pneumonia which is for the most part leon susceptibleeICU impressionChronic hypote nsionCystitis, klebsiellaMetastatic lung cancerQI measureseICU recommendationsDiscontinue stress dose steroidsCheck procalcitonin, if negative, de-escelate antibiotics to cover urine klebsiella based of f of susceptibilitiesContinue midodrineContinues goals of careVTE prophylaxis notedThank you for allo wing us to participate in the care of your patient. Critical care; 20 minutes total evaluation time I nterventions Major-Hypotension - evaluation and management, Infection - evaluation and managementElec tronically Signed by: KYE AYALA) on 09/14/2020 14:26
[2020-09-15] MEDS: Midodrine 5 MG Tab PO SCH ×3 (05:19→21:28)
[2020-09-15] MEDS: oxyCODONE 5 MG Tab PO PRN ×4 (05:37→20:08)
[2020-09-15] MEDS: Hydrocortisone Sodium Succinate 100 MG/2 ML SDV IVPUSH SCH ×2 (05:38→18:47)
[2020-09-15] MEDS: Meropenem 2 GM in Sodium Chloride 0.9% 100 ML IV SCH ×3 (05:46→21:21)
[2020-09-15 06:39] LABS: BLOOD UREA NITROGEN,BUN 3 mg/dL (7.0-18.0); CARBON DIOXIDE,CO2 32.9 mmol/L (21.0-32.0); CHLORIDE,CL 98 mmol/L (98-107); GLUCOSE RANDOM 151 mg/dL (74-106); SODIUM,NA 137 mmol/L (136-145)
[2020-09-15 06:47] LABS: POTASSIUM,K 2.3 mmol/L (3.5-5.1)
[2020-09-15] MEDS ORDERED: Magnesium Sulfate/Water 2 GM/50 ML BAG IV ONE (06:57)
[2020-09-15] MEDS ORDERED: Potassium Phos,M-Basic-D-Basic 3 MMOL/ML VIAL IV ONE (06:58)
[2020-09-15] MEDS ORDERED: Potassium Chloride 20 MEQ Tab.ER PO ONE ×2 (06:58→22:17)
--- NOTE | 2020-09-15 07:02 | PN ---
THC Physician - Brief Progress [id number]/02/2021 07:00[facility] fam [place], [place] - [facility] - MWN AVILA YAODate of Service 09/15/2020 07:00HPI/Event s of Note AM labs with persistent hypokalemia, hypomagnesemia and hypophosphatemia.Ordered KPhsos 40 mmol IVPB, K-dur 40 Al po and Magnesium 2g IV.Ordered f/up K and Phos levels at 12:00.Interventions Intermediate-Hypovolemia - evaluation and managementMinor-Electrolyte abnormality - evaluation and ma nagement
[2020-09-15] MEDS ORDERED: Potassium Phosphates 40 MMOLE in Sodium Chloride 0.9% 500 ML IV ONE (08:00)
[2020-09-15] MEDS: Pantoprazole 40 MG in Sodium Chloride 0.9% 10 ML IV SCH (09:09)
[2020-09-15] MEDS: Lubiprostone [Amitiza] 24 MCG PO SCH ×2 (09:11→21:25)
[2020-09-15] MEDS: risperiDONE 1 MG Tab PO SCH ×2 (09:11→21:29)
[2020-09-15] MEDS: Enoxaparin 40 MG/0.4 ML Syringe SUBCUT SCH (09:12)
--- NOTE | 2020-09-15 12:08 | PCM.PN ---
- General Info Date of Service: 09/15/20 - Review of Systems Systems Review Comment:: patient reports right sided pain. Patient is requesting discharge with hospice. - Patient Data Vitals - Most Recent: Last Vital Signs Temp 36.4 C 09/15/20 08:00 Pulse 68 09/14/20 12:00 Resp 14 09/15/20 08:00 BP 100/61 09/15/20 08:00 Pulse Ox 94 L 09/15/20 08:00 Weight - Most Recent: 59.511 kg I&O - Last 24 Hours: Intake & Output 09/14/20 09/15/20 09/15/20 22:59 06:59 14:59 Intake Total 2150 1600 100 Output Total 525 1650 Balance 1625 -50 100 Lab Results Last 24 Hours: Laboratory Results - last 24 hr 09/14/20 09/15/20 09/15/20 Range/Units 14:35 05:55 05:55 WBC 12.05 H (4.0-11.0) K/uL RBC 3.81 L (4.30-5.90) M/uL Hgb 12.0 (12.0-16.0) g/dL Hct 36.1 (36.0-46.0) % MCV 94.8 (80.0-98.0) fL MCH 31.5 (27.0-32.0) pg MCHC 33.2 (31.0-37.0) g/dL RDW Std Deviation 49.2 (28.0-62.0) fl RDW Coeff of Wili 14 (11.0-15.0) % Plt Count 400 (150-400) K/uL MPV 8.50 (7.40-12.00) fL Neut % (Auto) 86.8 H (48.0-80.0) % Lymph % (Auto) 6.4 L (16.0-40.0) % Griggs % (Auto) 6.8 (0.0-15.0) % Eos % (Auto) 0.0 (0.0-7.0) % Baso % (Auto) 0.0 (0.0-1.5) % Neut # (Auto) 10.5 H (1.4-5.7) K/uL Lymph # (Auto) 0.8 (0.6-2.4) K/uL Griggs # (Auto) 0.8 (0.0-0.8) K/uL Eos # (Auto) 0.0 (0.0-0.7) K/uL Baso # (Auto) 0.0 (0.0-0.1) K/uL Nucleated RBC % 0.0 /100WBC Nucleated RBCs # 0 K/uL Sodium 137 (136-145) mmol/L Potassium 2.3 L* (3.5-5.1) mmol/L Chloride 98 (98-107) mmol/L Carbon Dioxide 32.9 H (21.0-32.0) mmol/L BUN 3 L (7.0-18.0) mg/dL Creatinine 0.6 (0.6-1.0) mg/dL Est Cr Clr Drug Dosing 90.16 mL/min Estimated GFR (MDRD) > 60.0 ml/min Glucose 151 H (74-106) mg/dL Calcium 7.9 L (8.5-10.1) mg/dL Phosphorus 1.6 L (2.6-4.7) mg/dL Magnesium 1.5 L (1.8-2.4) mg/dL Vancomycin Trough 13.7 H (5.0-10.0) ug/mL Chase Results Last 24 Hours: Microbiology 09/12/20 19:40 Aerobic Blood Culture - Preliminary Blood - Venous - Lab Draw NO GROWTH AFTER 2 DAYS Anaerobic Blood Culture - Preliminary NO GROWTH AFTER 2 DAYS 09/12/20 19:29 Aerobic Blood Culture - Preliminary Blood - Venous NO GROWTH AFTER 2 DAYS Anaerobic Blood Culture - Preliminary NO GROWTH AFTER 2 DAYS 09/11/20 18:57 Urine Culture - Final Urine, Clean Catch Klebsiella Pneumoniae Med Orders - Current: Current Medications Albuterol/Ipratropium (Albuterol/Ipratropium 3.0-0.5 Mg/3 Ml Neb Soln) 3 ml NEB Q4HRRT PRN PRN Reason: Shortness Of Breath/wheezing Enoxaparin Sodium (Enoxaparin 40 Mg/0.4 Ml Syringe) 40 mg SUBCUT Q24H [facility] Last Admin: 09/15/20 09:12 Dose: 40 mg Documented by: Hydrocortisone Sodium Succinate (Hydrocortisone Sodium Succinate 100 Mg/2 Ml Sdv) 40 mg IVPUSH Q12H [facility] Last Admin: 09/15/20 05:38 Dose: 40 mg Documented by: Pantoprazole Sodium 40 mg/ (Sodium Chloride) 10 mls @ 300 mls/hr IV DAILY [facility] Last Admin: 09/15/20 09:09 Dose: 300 mls/hr Documented by: Lactated Ringer's (Ringers, Lactated) 1,000 mls @ 999 mls/hr IV BOLUS [facility] Last Admin: 09/12/20 16:30 Dose: 999 mls/hr Documented by: Meropenem 2 gm/ Sodium (Chloride) 100 mls @ 100 mls/hr IV Q8H [facility] Last Admin: 09/15/20 05:46 Dose: 100 mls/hr Documented by: Vancomycin HCl 1 gm/ Sodium (Chloride) 250 mls @ 166.667 mls/hr IV Q8H [facility] Last Admin: 09/15/20 07:12 Dose: 166.667 mls/hr Documented by: Potassium Phosphate 40 mmole/ (Sodium Chloride) 513.3333 mls @ 85.556 mls/hr IV ONETIME ONE Stop: 09/15/20 13:59 Last Admin: 09/15/20 08:55 Dose: 85.556 mls/hr Documented by: Lorazepam (Lorazepam 1 Mg Tab) 1 mg PO TID PRN PRN Reason: Anxiety Last Admin: 09/12/20 10:43 Dose: 1 mg Documented by: Midodrine (Midodrine 5 Mg Tab) 10 mg PO TID [facility] Last Admin: 09/15/20 05:19 Dose: 10 mg Documented by: Ondansetron HCl (Ondansetron 4 Mg/2 Ml Sdv) 4 mg IVPUSH Q4H PRN PRN Reason: Nausea/Vomiting Last Admin: 09/11/20 23:03 Dose: 4 mg Documented by: Oxycodone HCl (Oxycodone 5 Mg Tab) 5 mg PO Q4H PRN PRN Reason: Pain Umeclidinium Brm/Vilanterol Tr [Anoro Ellipta 62.5-25 Mcg ] 1 each INH DAILY [facility] Last Admin: 09/15/20 09:11 Dose: 1 each Documented by: Fluorouracil 30 Gm (Cream) 1 each TOP BID [facility] Last Admin: 09/15/20 09:11 Dose: 1 each Documented by: Lubiprostone [ (Amitiza] 24 Mcg) 1 each PO BID [facility] Last Admin: 09/15/20 09:11 Dose: 1 each Documented by: Risperidone (Risperidone 1 Mg Tab) 1 mg PO BID [facility] Last Admin: 09/15/20 09:11 Dose: 1 mg Documented by: Vancomycin HCl (Pharmacy To Dose - Vancomycin) 1 dose .XX ASDIRECTED [facility] Discontinued Medications Azithromycin (Azithromycin 500 Mg Vial) 250 mg IV Q24H [facility] Last Admin: 09/12/20 19:34 Dose: Not Given Documented by: Ceftriaxone Sodium (Ceftriaxone 1 Gm Vial) 1 gm IVPUSH ONETIME ONE Stop: 09/11/20 17:57 Last Admin: 09/11/20 19:21 Dose: Not Given Documented by: Cosyntropin (Cosyntropin 0.25 Mg Vial) 0.25 mg IV ONETIME ONE Stop: 09/12/20 19:21 Last Admin: 09/12/20 19:27 Dose: 0.25 mg Documented by: Fludrocortisone Acetate (Fludrocortisone 0.1 Mg Tab) 0.1 mg PO ONETIME ONE Stop: 09/12/20 13:31 Last Admin: 09/12/20 14:26 Dose: 0.1 mg Documented by: Fludrocortisone Acetate (Fludrocortisone 0.1 Mg Tab) 0.1 mg PO BIDMEALS [facility] Last Admin: 09/14/20 17:43 Dose: 0.1 mg Documented by: Hydrocortisone Sodium Succinate (Hydrocortisone Sodium Succinate 100 Mg/2 Ml Sdv) 100 mg IVPUSH ONETIME ONE Stop: 09/11/20 16:01 Last Admin: 09/11/20 16:22 Dose: 100 mg Documented by: Hydrocortisone Sodium Succinate (Hydrocortisone Sodium Succinate 100 Mg/2 Ml Sdv) 50 mg IVPUSH Q6H [facility] Last Admin: 09/14/20 17:44 Dose: 50 mg Documented by: Sodium Chloride (Normal Saline) 500 mls @ 500 mls/hr IV .BOLUS [facility] Last Admin: 09/11/20 12:58 Dose: 500 mls/hr Documented by: Azithromycin 500 mg/ Sodium (Chloride) 250 mls @ 250 mls/hr IV ONETIME [facility] Last Admin: 09/11/20 22:20 Dose: 250 mls/hr Documented by: Sodium Chloride (Normal Saline) 500 mls @ 500 mls/hr IV .BOLUS [facility] Last Admin: 09/11/20 20:30 Dose: 500 mls/hr Documented by: Lactated Ringer's (Ringers, Lactated) 1,000 mls @ 125 mls/hr IV ASDIRECTED [facility] Last Infusion: 09/14/20 09:01 Dose: 0 mls/hr Documented by: Ceftriaxone Sodium/Dextrose 1 (gm/ Premix) 50 mls @ 100 mls/hr IV ONETIME ONE Stop: 09/11/20 19:49 Last Admin: 09/11/20 19:25 Dose: 100 mls/hr Documented by: Ceftriaxone Sodium/Dextrose 1 (gm/ Premix) 50 mls @ 100 mls/hr IV Q24H [facility] Last Admin: 09/12/20 19:14 Dose: 100 mls/hr Documented by: Lactated Ringer's (Ringers, Lactated) 1,000 mls @ 999 mls/hr IV ASDIRECTED [facility] Lactated Ringer's (Ringers, Lactated) 1,000 mls @ 999 mls/hr IV .BOLUS ONE Stop: 09/12/20 10:15 Last Admin: 09/12/20 10:14 Dose: 999 mls/hr Documented by: Lactated Ringer's (Ringers, Lactated) 1,000 mls @ 999 mls/hr IV .BOLUS ONE Stop: 09/12/20 12:15 Last Admin: 09/12/20 12:17 Dose: 999 mls/hr Documented by: Lactated Ringer's (Ringers, Lactated) 1,000 mls @ 999 mls/hr IV .BOLUS ONE Stop: 09/12/20 11:15 Last Admin: 09/12/20 15:44 Dose: Not Given Documented by: Azithromycin 250 mg/ Sodium (Chloride) 250 mls @ 250 mls/hr IV DAILY@1999 [facility] Last Admin: 09/12/20 21:44 Dose: Not Given Documented by: Azithromycin 250 mg/ Sodium (Chloride) 250 mls @ 250 mls/hr IV DAILY@1999 [facility] Azithromycin 250 mg/ Sodium (Chloride) 250 mls @ 250 mls/hr IV DAILY@2099 [facility] Last Admin: 09/12/20 20:45 Dose: 250 mls/hr Documented by: Magnesium Sulfate (Magnesium Sulfate In Water 2 Gm/50 Ml) 2 gm in 50 mls @ 50 mls/hr IV ONETIME ONE Stop: 09/13/20 13:14 Last Admin: 09/13/20 12:29 Dose: 50 mls/hr Documented by: Vancomycin HCl 750 mg/ Sodium (Chloride) 250 mls @ 166.667 mls/hr IV Q8H [facility] Last Admin: 09/14/20 16:04 Dose: Not Given Documented by: Magnesium Sulfate (Magnesium Sulfate In Water 2 Gm/50 Ml) 2 gm in 50 mls @ 50 mls/hr IV ONETIME ONE Stop: 09/14/20 10:29 Potassium Chloride 40 meq/ (Sodium Chloride) 520 mls @ 130 mls/hr IV ONETIME ONE Stop: 09/14/20 15:29 Last Admin: 09/14/20 12:06 Dose: 130 mls/hr Documented by: Magnesium Sulfate (Magnesium Sulfate In Water 2 Gm/50 Ml) 2 gm in 50 mls @ 50 mls/hr IV ONETIME ONE Stop: 09/15/20 07:56 Last Admin: 09/15/20 07:47 Dose: 50 mls/hr Documented by: Magnesium Oxide (Magnesium Oxide 400 Mg Tab) 800 mg PO ONETIME ONE Stop: 09/14/20 09:31 Last Admin: 09/14/20 11:38 Dose: 800 mg Documented by: Methylprednisolone Sodium Succinate (Methylprednisolone Sodium Succinate 125 Mg/2 Ml Sdv) 125 mg IM ONETIME ONE Stop: 09/12/20 09:56 Methylprednisolone Sodium Succinate (Methylprednisolone Sodium Succinate 125 Mg/2 Ml Sdv) 125 mg IVPUSH ONETIME ONE Stop: 09/12/20 10:31 Last Admin: 09/12/20 10:42 Dose: 125 mg Documented by: Midodrine (Midodrine 5 Mg Tab) 5 mg PO ONETIME STA Stop: 09/11/20 12:50 Last Admin: 09/11/20 12:57 Dose: 5 mg Documented by: Morphine Sulfate (Morphine 10 Mg/Ml Syringe) 1 mg IVPUSH Q3H PRN PRN Reason: Pain (severe 7-10) Stop: 09/12/20 18:45 Non-Formulary Medication (Clindamycin Phos/Benzoyl Perox [Clinda-Benzoyl Perox 1-5% Pump]) 1 applic TOP BID [facility] Last Admin: 09/11/20 21:50 Dose: Not Given Documented by: Non-Formulary Medication (Fluorouracil [Fluorouracil]) 1 applic TOP BID [facility] Last Admin: 09/11/20 23:41 Dose: 1 applic Documented by: Non-Formulary Medication (Lubiprostone) 24 mcg PO BID [facility] Last Admin: 09/11/20 21:51 Dose: Not Given Documented by: Non-Formulary Medication (Pregabalin) 100 mg PO TID [facility] Last Admin: 09/12/20 05:16 Dose: Not Given Documented by: Oxycodone HCl (Oxycodone 5 Mg Tab) 2.5 mg PO Q8H PRN PRN Reason: Pain (moderate 4-6) Last Admin: 09/15/20 05:37 Dose: 2.5 mg Documented by: Potassium Chloride (Potassium Chloride 10% 20 Meq/15 Ml Soln 30 Ml Ud Cup) 40 meq PO ONETIME ONE Stop: 09/11/20 14:56 Last Admin: 09/11/20 15:06 Dose: 40 meq Documented by: Potassium Chloride (Potassium Chloride 10% 20 Meq/15 Ml Soln 30 Ml Ud Cup) 40 meq PO ONETIME ONE Stop: 09/14/20 11:16 Last Admin: 09/14/20 11:39 Dose: 40 meq Documented by: Potassium Chloride (Potassium Chloride 20 Meq Tab.Er) 40 meq PO ONETIME ONE Stop: 09/15/20 06:59 Last Admin: 09/15/20 07:47 Dose: 40 meq Documented by: - Exam General: Alert, Oriented Neck: Supple Lungs: Clear to Auscultation, Normal Respiratory Effort Cardiovascular: Regular Rate, Regular Rhythm GI/Abdominal Exam: Normal Bowel Sounds, Soft, Non-Tender Extremities: Normal Inspection, Non-Tender, No Pedal Edema Skin: Warm, Dry, Intact Neurological: No New Focal Deficit - Patient Data Lab Results Last 24 hrs: Laboratory Results - last 24 hr 09/14/20 09/15/20 09/15/20 Range/Units 14:35 05:55 05:55 WBC 12.05 H (4.0-11.0) K/uL RBC 3.81 L (4.30-5.90) M/uL Hgb 12.0 (12.0-16.0) g/dL Hct 36.1 (36.0-46.0) % MCV 94.8 (80.0-98.0) fL MCH 31.5 (27.0-32.0) pg MCHC 33.2 (31.0-37.0) g/dL RDW Std Deviation 49.2 (28.0-62.0) fl RDW Coeff of Wili 14 (11.0-15.0) % Plt Count 400 (150-400) K/uL MPV 8.50 (7.40-12.00) fL Neut % (Auto) 86.8 H (48.0-80.0) % Lymph % (Auto) 6.4 L (16.0-40.0) % Griggs % (Auto) 6.8 (0.0-15.0) % Eos % (Auto) 0.0 (0.0-7.0) % Baso % (Auto) 0.0 (0.0-1.5) % Neut # (Auto) 10.5 H (1.4-5.7) K/uL Lymph # (Auto) 0.8 (0.6-2.4) K/uL Griggs # (Auto) 0.8 (0.0-0.8) K/uL Eos # (Auto) 0.0 (0.0-0.7) K/uL Baso # (Auto) 0.0 (0.0-0.1) K/uL Nucleated RBC % 0.0 /100WBC Nucleated RBCs # 0 K/uL Sodium 137 (136-145) mmol/L Potassium 2.3 L* (3.5-5.1) mmol/L Chloride 98 (98-107) mmol/L Carbon Dioxide 32.9 H (21.0-32.0) mmol/L BUN 3 L (7.0-18.0) mg/dL Creatinine 0.6 (0.6-1.0) mg/dL Est Cr Clr Drug Dosing 90.16 mL/min Estimated GFR (MDRD) > 60.0 ml/min Glucose 151 H (74-106) mg/dL Calcium 7.9 L (8.5-10.1) mg/dL Phosphorus 1.6 L (2.6-4.7) mg/dL Magnesium 1.5 L (1.8-2.4) mg/dL Vancomycin Trough 13.7 H (5.0-10.0) ug/mL Result Diagrams: 09/15/20 05:55 09/15/20 05:55 Chase Results Last 24 hrs: Microbiology 09/12/20 19:40 Aerobic Blood Culture - Preliminary Blood - Venous - Lab Draw NO GROWTH AFTER 2 DAYS Anaerobic Blood Culture - Preliminary NO GROWTH AFTER 2 DAYS 09/12/20 19:29 Aerobic Blood Culture - Preliminary Blood - Venous NO GROWTH AFTER 2 DAYS Anaerobic Blood Culture - Preliminary NO GROWTH AFTER 2 DAYS 09/11/20 18:57 Urine Culture - Final Urine, Clean Catch Klebsiella Pneumoniae Sepsis Event Note - Evaluation Sepsis Screening Result: No Definite Risk - Focused Exam Vital Signs: Vital Signs Temp Resp BP Pulse Ox 09/15/20 08:00 36.4 C 14 100/61 94 L 09/15/20 06:00 13 99/54 L 93 L 09/15/20 04:00 36.3 C 11 L 104/53 L 96 09/15/20 02:00 10 L 100/51 L 95 09/15/20 00:00 36.2 C 12 107/59 L 96 - Problem List Review Problem List Initiated/Reviewed/Updated: Yes - My Orders Last 24 Hours: My Active Orders 09/15/20 10:36 Transfer Patient (Change bed) [ADT] Routine 09/15/20 11:48 oxyCODONE 5 mg PO Q4H PRN - Plan Plan:: 65 y/o F admitted for acute over chronic hypotension and hypoxia, Her BP has improved with IV fluids and steroids. Patient is requesting to transfer to comfort measures only. Will increase oxycodone dose. Patient is aware that this may lower her blood pressure but she wants to focus on comfort. Hospice can accept her at home tomorrow. Patient is willing to stay until tomorrow.
[2020-09-15 22:09] LABS: BLOOD UREA NITROGEN,BUN 3 mg/dL (7.0-18.0); CARBON DIOXIDE,CO2 36.8 mmol/L (21.0-32.0); CHLORIDE,CL 98 mmol/L (98-107); GLUCOSE RANDOM 126 mg/dL (74-106); SODIUM,NA 138 mmol/L (136-145)
[2020-09-15 22:15] LABS: POTASSIUM,K 2.3 mmol/L (3.5-5.1)
[2020-09-15] MEDS ORDERED: Sodium Chloride 0.9% with KCl 1,000 ML IV SCH (22:30)
[2020-09-16] MEDS: oxyCODONE 5 MG Tab PO PRN ×4 (00:08→12:20)
[2020-09-16] MEDS: Midodrine 5 MG Tab PO SCH ×2 (06:17→15:14)
[2020-09-16] MEDS: Hydrocortisone Sodium Succinate 100 MG/2 ML SDV IVPUSH SCH (06:19)
[2020-09-16] MEDS: Meropenem 2 GM in Sodium Chloride 0.9% 100 ML IV SCH ×2 (06:57→15:15)
[2020-09-16] MEDS: Lubiprostone [Amitiza] 24 MCG PO SCH (08:21)
[2020-09-16] MEDS: risperiDONE 1 MG Tab PO SCH (08:21)
[2020-09-16] MEDS: Pantoprazole 40 MG in Sodium Chloride 0.9% 10 ML IV SCH (08:21)
[2020-09-16] MEDS: Enoxaparin 40 MG/0.4 ML Syringe SUBCUT SCH (08:35)
[2020-09-16 11:02] LABS: BLOOD UREA NITROGEN,BUN 3 mg/dL (7.0-18.0); CARBON DIOXIDE,CO2 34.1 mmol/L (21.0-32.0); CHLORIDE,CL 97 mmol/L (98-107); GLUCOSE RANDOM 141 mg/dL (74-106); POTASSIUM,K 2.8 mmol/L (3.5-5.1); SODIUM,NA 137 mmol/L (136-145)
[2020-09-16] MEDS ORDERED: Potassium Chloride 20 MEQ Tab.ER PO ONE ×2 (11:31→12:50)
[2020-09-16] MEDS ORDERED: Magnesium Sulfate/Water 2 GM/50 ML Premix Bag IV ONE (11:31)
[2020-09-16] MEDS ORDERED: Magnesium Sulfate/Water 2 GM/50 ML BAG IV ONE (11:45)
[2020-09-16] MEDS ORDERED: Sodium Chloride 0.9% with KCl 1,000 ML IV ONE (11:45)
--- NOTE | 2020-09-16 12:05 | PCM.DCSUM1 ---
Discharge Summary - Hospital Course HPI Initial Comments: 65-year-old woman with metastatic lung cancer and history of hypotension who is on midodrine who comes to the emergency department with a chief complaint of low blood pressure. The patient states that she has a history of low blood pressure and the RN checked her blood pressure at home and is found to be low in 60s. She currently denies any chest pain, abdominal pain, nausea vomiting, headache, blurry vision. She states that she did experience some bright lights in the front of her eyes earlier this morning but has not had any since. She states she on immunotherapy. She denies any recent falls or any other injury. She denies any numbness or tingling of her lower extremities, bowel incontinence or urinary incontinence. Patient states that her father few days back , although she wasn't very close to him it took a toll on her and she hasn't been eating and drinking as usual. She got very emotional and tearful. Patient thinks her cancer isnt getting better altough she is supposed to get a PET scan in near future before her next immunotherapy. She states if her cancer isnt better she will likely turn towards more comfort measures rather than aggressive care. In the ER patient was found to have low bp with SBP in 70-80s, ekg showed Sinus rhythm with left ventricular fascicular block, unchanged from prior ekg, CBC is unremarkable. BMP reveals hyponatremia at 133, hypokalemia at 3.3, hypochloremia at 94, metabolic alkalosis with a bicarbonate of 32.9. Hypomagnesemia at 7.9 and hypermagnesemia 3.1. She was requiring 2 lts of oxygen, Troponin is negative. Covid is negative, Chest x-ray reveals a new somewhat linear opacity at the lateral right base along the adjacent new mild pleural thickening with possible infiltrate. Patient received some IV fluids , IV steroids and midodrine but her pressures were still on softer side, patient was admitted for further management of Acute on chronic hypotension, and Acute on chronic hypoxia likely secondary to possible community-acquired pneumonia versus lung cancer. - Discharge Data Discharge Date: 09/16/20 Discharge Disposition: DC/Tfer to Hospice - [facility] Condition: Stable - Referral to Home Health Primary Care Physician: Kenneth Muller MD - Patient Summary/Data Consults: Consultations 09/14/20 09:28 Consult to Hospice [CONS] Routine 09/14/20 11:08 PT Evaluation and Treatment [CONS] Routine Hospital Course: Patient was admitted to the hospital and treated with IV fluids and IV solumedrol which improved her blood pressures. Patient was treated with vancomycin and meropenem for UTI. Urine cultures grew out klebsiella. Patient was given potassium supplementation for her hypokalemia. Patient reported she was tired of coming to the hospital and tired of the frequent lab draws. She requested hospice consult. Patient then decided to be switched to comfort only with the goal of going home. Her oxycodone was increased to 5mg q4hrs which helped with patient's pain. Hospice is able to accept her today so will discharge home with hospice. - Patient Instructions Diet: Usual Diet as Tolerated Activity: As Tolerated - Discharge Plan Prescriptions/Med Rec: Levofloxacin [Levaquin] 500 mg PO DAILY #3 tablet Potassium Chloride 20 meq PO DAILY #7 tablet.er Home Medications: Home Meds LORazepam 1 mg PO TID PRN 04/07/18 [History] Ondansetron [Zofran] 8 mg PO TID PRN 04/07/18 [History] Lubiprostone [Amitiza] 24 mcg PO BID 06/19/20 [History] Midodrine 10 mg PO TID 06/19/20 [History] Pantoprazole [ProTONIX] 40 mg PO DAILY 06/19/20 [History] Pembrolizumab [Keytruda] 200 mg IV .EVERY 3 WEEKS 06/19/20 [History] fluorouraciL [Fluorouracil] 1 applic TOP BID 06/19/20 [History] Albuterol Sulfate [Proair Hfa] 2 inh IH Q4H PRN 06/20/20 [History] Umeclidinium Brm/Vilanterol Tr [Anoro Ellipta 62.5-25 MCG] 1 inh IH DAILY 06/20/20 [History] risperiDONE [Risperdal] 1 mg PO BID 06/20/20 [History] Clindamycin Phos/Benzoyl Perox [Clinda-Benzoyl Perox 1-5% Pump] 1 applic TOP BID 09/11/20 [History] Ibuprofen 200 mg PO Q6HRRT PRN 09/12/20 [History] Levofloxacin [Levaquin] 500 mg PO DAILY #3 tablet 09/16/20 [Rx] Potassium Chloride 20 meq PO DAILY #7 tablet.er 09/16/20 [Rx] oxyCODONE 5 mg PO Q4HR PRN #0 tablet 09/16/20 [Rx] Patient Handouts: Potassium Chloride Extended-Release Capsules, Levofloxacin tablets Referrals: Kenneth Muller MD [Primary Care Provider] - 09/20/20 10:45 am - Discharge Summary/Plan Comment DC Time >30 min.: No - Patient Data Vitals - Most Recent: Last Vital Signs Temp 36.4 C 09/16/20 07:30 Pulse 51 L 09/16/20 07:30 Resp 17 09/16/20 07:30 BP 110/58 L 09/16/20 07:30 Pulse Ox 92 L 09/16/20 07:30 Weight - Most Recent: 59.511 kg I&O - Last 24 hours: Intake & Output 09/15/20 09/16/20 09/16/20 22:59 06:59 14:59 Intake Total 1360 2571 Output Total 1200 2308 Balance 160 263 Lab Results - Last 24 hrs: Laboratory Results - last 24 hr 09/15/20 09/15/20 09/16/20 Range/Units 21:45 21:45 10:32 Sodium 138 137 (136-145) mmol/L Potassium 2.3 L* 2.8 L (3.5-5.1) mmol/L Chloride 98 97 L (98-107) mmol/L Carbon Dioxide 36.8 H 34.1 H (21.0-32.0) mmol/L BUN 3 L 3 L (7.0-18.0) mg/dL Creatinine 0.7 0.6 (0.6-1.0) mg/dL Est Cr Clr Drug Dosing 77.28 90.16 mL/min Estimated GFR (MDRD) > 60.0 > 60.0 ml/min Glucose 126 H 141 H (74-106) mg/dL Calcium 7.3 L 7.1 L (8.5-10.1) mg/dL Magnesium 1.6 L 1.5 L (1.8-2.4) mg/dL DENISE Results - Last 24 hrs: Microbiology 09/12/20 19:40 Aerobic Blood Culture - Preliminary Blood - Venous - Lab Draw NO GROWTH AFTER 3 DAYS Anaerobic Blood Culture - Preliminary NO GROWTH AFTER 3 DAYS 09/12/20 19:29 Aerobic Blood Culture - Preliminary Blood - Venous NO GROWTH AFTER 3 DAYS Anaerobic Blood Culture - Preliminary NO GROWTH AFTER 3 DAYS Med Orders - Current: Current Medications Albuterol/Ipratropium (Albuterol/Ipratropium 3.0-0.5 Mg/3 Ml Neb Soln) 3 ml NEB Q4HRRT PRN PRN Reason: Shortness Of Breath/wheezing Enoxaparin Sodium (Enoxaparin 40 Mg/0.4 Ml Syringe) 40 mg SUBCUT Q24H [facility] Last Admin: 09/16/20 08:35 Dose: 40 mg Documented by: Hydrocortisone Sodium Succinate (Hydrocortisone Sodium Succinate 100 Mg/2 Ml Sdv) 40 mg IVPUSH Q12H [facility] Last Admin: 09/16/20 06:19 Dose: 40 mg Documented by: Pantoprazole Sodium 40 mg/ (Sodium Chloride) 10 mls @ 300 mls/hr IV DAILY [facility] Last Admin: 09/16/20 08:21 Dose: 300 mls/hr Documented by: Lactated Ringer's (Ringers, Lactated) 1,000 mls @ 999 mls/hr IV BOLUS [facility] Last Admin: 09/12/20 16:30 Dose: 999 mls/hr Documented by: Meropenem 2 gm/ Sodium (Chloride) 100 mls @ 100 mls/hr IV Q8H [facility] Last Admin: 09/16/20 06:57 Dose: 100 mls/hr Documented by: Vancomycin HCl 1 gm/ Sodium (Chloride) 250 mls @ 166.667 mls/hr IV Q8H [facility] Last Admin: 09/16/20 08:21 Dose: 166.667 mls/hr Documented by: Potassium Chloride/Sodium Chloride (Normal Saline With 40 Meq Kcl) 1,000 mls @ 150 mls/hr IV ONETIME ONE Stop: 09/16/20 18:24 Magnesium Sulfate (Magnesium Sulfate In Water 2 Gm/50 Ml) 2 gm in 50 mls @ 50 mls/hr IV ONETIME ONE Stop: 09/16/20 12:44 Lorazepam (Lorazepam 1 Mg Tab) 1 mg PO TID PRN PRN Reason: Anxiety Last Admin: 09/12/20 10:43 Dose: 1 mg Documented by: Midodrine (Midodrine 5 Mg Tab) 10 mg PO TID [facility] Last Admin: 09/16/20 06:17 Dose: 10 mg Documented by: Ondansetron HCl (Ondansetron 4 Mg/2 Ml Sdv) 4 mg IVPUSH Q4H PRN PRN Reason: Nausea/Vomiting Last Admin: 09/11/20 23:03 Dose: 4 mg Documented by: Oxycodone HCl (Oxycodone 5 Mg Tab) 5 mg PO Q4H PRN PRN Reason: Pain Last Admin: 09/16/20 08:20 Dose: 5 mg Documented by: Umeclidinium Brm/Vilanterol Tr [Anoro Ellipta 62.5-25 Mcg ] 1 each INH DAILY [facility] Last Admin: 09/16/20 08:22 Dose: 1 each Documented by: Fluorouracil 30 Gm (Cream) 1 each TOP BID [facility] Last Admin: 09/16/20 08:21 Dose: 1 each Documented by: Lubiprostone [ (Amitiza] 24 Mcg) 1 each PO BID [facility] Last Admin: 09/16/20 08:21 Dose: 1 each Documented by: Risperidone (Risperidone 1 Mg Tab) 1 mg PO BID [facility] Last Admin: 09/16/20 08:21 Dose: 1 mg Documented by: Vancomycin HCl (Pharmacy To Dose - Vancomycin) 1 dose .XX ASDIRECTED [facility] Discontinued Medications Azithromycin (Azithromycin 500 Mg Vial) 250 mg IV Q24H [facility] Last Admin: 09/12/20 19:34 Dose: Not Given Documented by: Ceftriaxone Sodium (Ceftriaxone 1 Gm Vial) 1 gm IVPUSH ONETIME ONE Stop: 09/11/20 17:57 Last Admin: 09/11/20 19:21 Dose: Not Given Documented by: Cosyntropin (Cosyntropin 0.25 Mg Vial) 0.25 mg IV ONETIME ONE Stop: 09/12/20 19:21 Last Admin: 09/12/20 19:27 Dose: 0.25 mg Documented by: Fludrocortisone Acetate (Fludrocortisone 0.1 Mg Tab) 0.1 mg PO ONETIME ONE Stop: 09/12/20 13:31 Last Admin: 09/12/20 14:26 Dose: 0.1 mg Documented by: Fludrocortisone Acetate (Fludrocortisone 0.1 Mg Tab) 0.1 mg PO BIDMEALS [facility] Last Admin: 09/14/20 17:43 Dose: 0.1 mg Documented by: Hydrocortisone Sodium Succinate (Hydrocortisone Sodium Succinate 100 Mg/2 Ml Sdv) 100 mg IVPUSH ONETIME ONE Stop: 09/11/20 16:01 Last Admin: 09/11/20 16:22 Dose: 100 mg Documented by: Hydrocortisone Sodium Succinate (Hydrocortisone Sodium Succinate 100 Mg/2 Ml Sdv) 50 mg IVPUSH Q6H [facility] Last Admin: 09/14/20 17:44 Dose: 50 mg Documented by: Sodium Chloride (Normal Saline) 500 mls @ 500 mls/hr IV .[facility]OL[facility] Last Admin: 09/11/20 12:58 Dose: 500 mls/hr Documented by: Azithromycin 500 mg/ Sodium (Chloride) 250 mls @ 250 mls/hr IV ONETIME [facility] Last Admin: 09/11/20 22:20 Dose: 250 mls/hr Documented by: Sodium Chloride (Normal Saline) 500 mls @ 500 mls/hr IV .BOLUS [facility] Last Admin: 09/11/20 20:30 Dose: 500 mls/hr Documented by: Lactated Ringer's (Ringers, Lactated) 1,000 mls @ 125 mls/hr IV ASDIRECTED [facility] Last Infusion: 09/14/20 09:01 Dose: 0 mls/hr Documented by: Ceftriaxone Sodium/Dextrose 1 (gm/ Premix) 50 mls @ 100 mls/hr IV ONETIME ONE Stop: 09/11/20 19:49 Last Admin: 09/11/20 19:25 Dose: 100 mls/hr Documented by: Ceftriaxone Sodium/Dextrose 1 (gm/ Premix) 50 mls @ 100 mls/hr IV Q24H [facility] Last Admin: 09/12/20 19:14 Dose: 100 mls/hr Documented by: Lactated Ringer's (Ringers, Lactated) 1,000 mls @ 999 mls/hr IV ASDIRECTED [facility] Lactated Ringer's (Ringers, Lactated) 1,000 mls @ 999 mls/hr IV .BOLUS ONE Stop: 09/12/20 10:15 Last Admin: 09/12/20 10:14 Dose: 999 mls/hr Documented by: Lactated Ringer's (Ringers, Lactated) 1,000 mls @ 999 mls/hr IV .BOLUS ONE Stop: 09/12/20 12:15 Last Admin: 09/12/20 12:17 Dose: 999 mls/hr Documented by: Lactated Ringer's (Ringers, Lactated) 1,000 mls @ 999 mls/hr IV .BOLUS ONE Stop: 09/12/20 11:15 Last Admin: 09/12/20 15:44 Dose: Not Given Documented by: Azithromycin 250 mg/ Sodium (Chloride) 250 mls @ 250 mls/hr IV DAILY@1999 [facility] Last Admin: 09/12/20 21:44 Dose: Not Given Documented by: Azithromycin 250 mg/ Sodium (Chloride) 250 mls @ 250 mls/hr IV DAILY@1999 [facility] Azithromycin 250 mg/ Sodium (Chloride) 250 mls @ 250 mls/hr IV DAILY@2099 [facility] Last Admin: 09/12/20 20:45 Dose: 250 mls/hr Documented by: Magnesium Sulfate (Magnesium Sulfate In Water 2 Gm/50 Ml) 2 gm in 50 mls @ 50 mls/hr IV ONETIME ONE Stop: 09/13/20 13:14 Last Admin: 09/13/20 12:29 Dose: 50 mls/hr Documented by: Vancomycin HCl 750 mg/ Sodium (Chloride) 250 mls @ 166.667 mls/hr IV Q8H [facility] Last Admin: 09/14/20 16:04 Dose: Not Given Documented by: Magnesium Sulfate (Magnesium Sulfate In Water 2 Gm/50 Ml) 2 gm in 50 mls @ 50 mls/hr IV ONETIME ONE Stop: 09/14/20 10:29 Potassium Chloride 40 meq/ (Sodium Chloride) 520 mls @ 130 mls/hr IV ONETIME ONE Stop: 09/14/20 15:29 Last Admin: 09/14/20 12:06 Dose: 130 mls/hr Documented by: Magnesium Sulfate (Magnesium Sulfate In Water 2 Gm/50 Ml) 2 gm in 50 mls @ 50 mls/hr IV ONETIME ONE Stop: 09/15/20 07:56 Last Admin: 09/15/20 07:47 Dose: 50 mls/hr Documented by: Potassium Phosphate 40 mmole/ (Sodium Chloride) 513.3333 mls @ 85.556 mls/hr IV ONETIME ONE Stop: 09/15/20 13:59 Last Admin: 09/15/20 08:55 Dose: 85.556 mls/hr Documented by: Potassium Chloride/Sodium Chloride (Normal Saline With 40 Meq Kcl) 1,000 mls @ 150 mls/hr IV ASDIRECTED [facility] Stop: 09/16/20 05:09 Last Admin: 09/16/20 00:15 Dose: 150 mls/hr Documented by: Magnesium Oxide (Magnesium Oxide 400 Mg Tab) 800 mg PO ONETIME ONE Stop: 09/14/20 09:31 Last Admin: 09/14/20 11:38 Dose: 800 mg Documented by: Methylprednisolone Sodium Succinate (Methylprednisolone Sodium Succinate 125 Mg/2 Ml Sdv) 125 mg IM ONETIME ONE Stop: 09/12/20 09:56 Methylprednisolone Sodium Succinate (Methylprednisolone Sodium Succinate 125 Mg/2 Ml Sdv) 125 mg IVPUSH ONETIME ONE Stop: 09/12/20 10:31 Last Admin: 09/12/20 10:42 Dose: 125 mg Documented by: Midodrine (Midodrine 5 Mg Tab) 5 mg PO ONETIME STA Stop: 09/11/20 12:50 Last Admin: 09/11/20 12:57 Dose: 5 mg Documented by: Morphine Sulfate (Morphine 10 Mg/Ml Syringe) 1 mg IVPUSH Q3H PRN PRN Reason: Pain (severe 7-10) Stop: 09/12/20 18:45 Non-Formulary Medication (Clindamycin Phos/Benzoyl Perox [Clinda-Benzoyl Perox 1-5% Pump]) 1 applic TOP BID [facility] Last Admin: 09/11/20 21:50 Dose: Not Given Documented by: Non-Formulary Medication (Fluorouracil [Fluorouracil]) 1 applic TOP BID [facility] Last Admin: 09/11/20 23:41 Dose: 1 applic Documented by: Non-Formulary Medication (Lubiprostone) 24 mcg PO BID [facility] Last Admin: 09/11/20 21:51 Dose: Not Given Documented by: Non-Formulary Medication (Pregabalin) 100 mg PO TID [facility] Last Admin: 09/12/20 05:16 Dose: Not Given Documented by: Oxycodone HCl (Oxycodone 5 Mg Tab) 2.5 mg PO Q8H PRN PRN Reason: Pain (moderate 4-6) Last Admin: 09/15/20 05:37 Dose: 2.5 mg Documented by: Potassium Chloride (Potassium Chloride 10% 20 Meq/15 Ml Soln 30 Ml Ud Cup) 40 meq PO ONETIME ONE Stop: 09/11/20 14:56 Last Admin: 09/11/20 15:06 Dose: 40 meq Documented by: Potassium Chloride (Potassium Chloride 10% 20 Meq/15 Ml Soln 30 Ml Ud Cup) 40 meq PO ONETIME ONE Stop: 09/14/20 11:16 Last Admin: 09/14/20 11:39 Dose: 40 meq Documented by: Potassium Chloride (Potassium Chloride 20 Meq Tab.Er) 40 meq PO ONETIME ONE Stop: 09/15/20 06:59 Last Admin: 09/15/20 07:47 Dose: 40 meq Documented by: Potassium Chloride (Potassium Chloride 20 Meq Tab.Er) 40 meq PO ONETIME ONE Stop: 09/15/20 22:18 Last Admin: 09/15/20 22:53 Dose: 40 meq Documented by: Potassium Chloride (Potassium Chloride 20 Meq Tab.Er) 40 meq PO ONETIME ONE Stop: 09/16/20 11:32
[2020-09-16 12:35] VITALS: BP 94/57; PULSE 63
== END 2020-09-16 14:20 | disposition hospice, home (50) | DRG 194 ==
LOC: MW.ED 12:20 → UNDOADMOB 17:58 → MW.MS 17:58 → MW.ICU 09-12 09:54 → OBSVTOIN 09-12 09:54 → INTOOBSV 09-12 10:41 → MW.MS 09-12 10:42 → MW.ICU 09-12 10:42 → MW.MS 09-15 14:59
PROVIDERS: ADMIT Student in an Organized Health Care Education/Training Program; ATTEND Student in an Organized Health Care Education/Training Program
DX: J18.9 Pneumonia, unspecified organism (principal); E87.1 Hypo-osmolality and hyponatremia; E87.3 Alkalosis; C34.90 Malignant neoplasm of unspecified part of unspecified bronchus or lung; G45.9 Transient cerebral ischemic attack, unspecified; R62.7 Adult failure to thrive; C79.31 Secondary malignant neoplasm of brain; I95.89 Other hypotension; B96.1 Klebsiella pneumoniae [K. pneumoniae] as the cause of diseases classified elsewhere; E87.6 Hypokalemia; E87.8 Other disorders of electrolyte and fluid balance, not elsewhere classified; Z34.90 Encounter for supervision of normal pregnancy, unspecified, unspecified trimester; E83.41 Hypermagnesemia; Z88.0 Allergy status to penicillin; Z88.8 Allergy status to other drugs, medicaments and biological substances; E86.1 Hypovolemia; Z79.899 Other long term (current) drug therapy; J44.9 Chronic obstructive pulmonary disease, unspecified; Z92.3 Personal history of irradiation; F32.9 Major depressive disorder, single episode, unspecified; Z88.5 Allergy status to narcotic agent; Z90.49 Acquired absence of other specified parts of digestive tract; Z98.51 Tubal ligation status; F41.9 Anxiety disorder, unspecified; H54.7 Unspecified visual loss; Z20.822 Contact with and (suspected) exposure to COVID-19
CPT/HCPCS: 36415; 51702; 71045; 71045-26; 80048; 80053; 80202; 80400; 81001; 82533; 82962; 83605; 83735; 83880; 84100; 84443; 84484; 85025; 87040; 87086; 87088; 87186; 93005; 93010; 96374; 97162-GP; 99284; 99285-25; A9270-GY; C9113; J0456; J0696; J0834; J1650; J1720; J2185; J2405; J2930; J3370; J3475; J3480; J7040; J7050; J7120; U0002